=== PATIENT | male | born 1955 | race Caucasian/White ===

== ENCOUNTER 2019-05-24 08:21 | Emergency (ER) | payer MEDICAID, SELFPAY | END 2019-05-24 15:51 | disposition admitted as inpatient to this hospital (09) | LOC: ER 06-24 10:56 | PROVIDERS: Emergency Provider Family Medicine; Family Provider Nurse Practitioner Family | DX: R07.9 Chest pain, unspecified (principal); Z79.82 Long term (current) use of aspirin; Z79.01 Long term (current) use of anticoagulants; F17.210 Nicotine dependence, cigarettes, uncomplicated | CPT/HCPCS: 71045; 71275; 74174; 80053; 83880; 84484; 85025; 93005; 96365; 96366; 96367; 96375; 99284; 99291; Q9967 ==

== ENCOUNTER 2019-05-24 08:21 | Inpatient (IN) | payer MEDICAID, SELFPAY ==
[2019-05-24] VITALS (78 sets, daily range): BP systolic 80–170; BP diastolic 54–139; PULSE 84–99; RESP 17–49; TEMP 36.8–36.9; O2SAT 75–99; BMI 31.0
--- NOTE | 2019-05-24 08:35 | ED_ITS ---
Entered by Kaylin Parson, acting as scribe for Celestino Zurita DO HPI - Chest Pain General: Chief Complaint: Chest Pain Stated Complaint: Chest pain Time Seen by Provider: 05/24/19 08:31 Source: patient and family Mode of arrival: ambulatory Limitations: no limitations History of Present Illness: HPI narrative: 63 yo male presents with chest pain. pt states he woke up this morning around 7:30. pt has a pacer and defibrillator. pt states the pain comes and goes. pt denies any other symptoms at this time. pt has a hx of a AAA that is a [address] Joseph[address] MURRAY complaint: chest pain and chest heaviness Onset (ago): hour(s) (7:30 this morning) Timing of current episode: constant and still present Prior episodes: Yes Onset: during rest Pain location: substernal Pain radiation: none Severity: moderate Quality: tightness and heaviness Relieving factors: nothing Exacerbating factors: nothing Associated symptoms: Reports no associated symptoms Treatment prior to arrival: none Review of Systems General: Reports: 10 or more systems reviewed and unremarkable except in HPI and below PFSH ED PFSH: Statuses (acute, chronic, etc) shown below reflect problem list status as previously entered and may not be historically accurate Social History Smoking and tobacco status: current every day smoker Physical Exam Const: COMMON NORMALS: no apparent distress, average body habitus, oriented x3, no limitations, healthy appearing, alert and well nourished HENMT: COMMON NORMALS: normocephalic, head/scalp atraumatic, hearing grossly normal bilaterally, external ears normal, EAC's normal, TM's normal bilaterally, external nose normal, nasal mucous membranes and turbinates normal, moist oral mucous membranes, oropharynx normal, dentition normal and gingiva normal HEAD & SCALP: normocephalic and atraumatic NOSE: external nose normal and nasal mucous membranes and turbinates normal EXTERNAL EAR: Yes external ears normal EXTERNAL AUDITORY CANAL: EAC's normal TYMPANIC MEMBRANE: TM's normal bilaterally Eye: COMMON NORMALS: PERRL, EOMs intact bilaterally, conjunctivae normal, no scleral icterus, no papilledema, normal visual lubin by confrontation and fundi normal bilaterally CONJUNCTIVA: Yes conjunctivae normal PUPIL: Yes PERRL DIRECT OPHTHALMOSCOPY: Yes no papilledema and Yes fundi normal bilaterally Neck/C-Spine: COMMON NORMALS: full ROM, no lymphadenopathy, supple, no meningeal signs, no JVD, thyroid normal and no carotid bruits THYROID: thyroid normal Resp: COMMON NORMALS: normal respiratory effort, no retractions, no use of accessory muscles, clear to auscultation bilaterally and percussion normal AUSCULTATION: clear to auscultation bilaterally, rales and rhonchi PERCUSSION: percussion normal Cardio: COMMON NORMALS: no JVD, regular rate, regular rhythm, S1 normal heart sound, S2 normal heart sound, no gallops, no clicks, no murmurs, no rub and peripheral pulses 2+ throughout RATE: regular rate RHYTHM: regular rhythm HEART SOUNDS: S1 normal and S2 normal PERIPHERAL PULSES: pulses 2+ throughout GI: COMMON NORMALS: normal to inspection, nondistended, normoactive bowel sounds, soft to palpation, non-tender, no hepatosplenomegaly, no masses and no bruits PALPATION: Yes soft and Yes no hepatosplenomegaly : COMMON NORMALS: Yes no CVA tenderness BLADDER/KIDNEY EXAM: Yes no CVA tenderness Back/Pelvis: COMMON NORMALS: no CVA tenderness, thoracic and lumbar spine normal to inspection, no thoracic nor lumbar tenderness, thoraco-lumbar ROM normal and straight leg raise negative bilaterally Extremity: COMMON NORMALS: normal to inspection, full ROM, normal capillary refill, no joint enlargement, no clubbing, cyanosis or edema, no calf tenderness and no pedal edema Neuro: COMMON NORMALS: oriented x3 SENSORIUM/ORIENTATION: Yes alert MENINGEAL SIGNS: Yes no meningeal signs Skin: COMMON NORMALS: no rashes or lesions noted, no wounds, skin turgor normal, no jaundice, no petechiae and no mottling GENERAL SKIN EXAM: no rashes or lesions noted and turgor normal Course Vital Signs: Vital signs: Vital Signs Pulse Rate 96 05/24/19 11:15 Respiratory Rate 24 H 05/24/19 10:35 Blood Pressure 90/60 05/24/19 10:30 Pulse Oximetry 92 05/24/19 11:15 MDM - Chest Pain Lab Data: Labs: Lab Results 05/24/19 05/24/19 05/24/19 Range/Units 08:50 08:50 08:50 WBC 21.1 H (4.0-10.0) 10^3/ uL RBC 5.29 (4.1-5.3) 10^6/u L Hgb 16.4 (11.7-16.6) g/dL Hct 49.1 (42.0-52.0) % MCV 92.8 (80-94) fL MCH 31.0 (28.0-34.0) pg MCHC 33.4 (30.0-36.0) g/dL RDW 12.6 (12.1-15.1) % Plt Count 295 (130-400) 10^3/c mm MPV 11.5 H (7.4-10.4) fL Neut % (Auto) 78.9 % Lymph % (Auto) 8.1 % [place] % (Auto) 11.6 % Eos % (Auto) 0.2 % Baso % (Auto) 0.5 % Neut # (Auto) 16.6 H (1.8-7.7) 10^3/u L Lymph # (Auto) 1.7 (0.8-4.8) 10^3/u L [place] # (Auto) 2.5 H (0.2-0.9) 10^3/u L Eos # (Auto) 0.0 (0.0-0.8) 10^3/u L Baso # (Auto) 0.1 (0.0-0.1) 10^3/u L Nucleated RBC % (a uto) 0 % Nucleated RBCs # 0.0 /100WBC Sodium 132 L (136-145) mmol/L Potassium 5.2 H (3.5-5.1) mmol/L Chloride 98 (98-107) mmol/L Carbon Dioxide 21 L (22-29) mmol/L Anion Gap 18.2 (5-19) BUN 19 (8-23) mg/dL Creatinine 1.0 (0.7-1.2) mg/dL GFR Calculation 75.7 L (90-130) mL/min Glucose 125 H (74-106) mg/dL Lactate (0.5-2.2) mmol/L Calcium 10.5 H (8.8-10.2) mg/Dl Total Bilirubin 1.0 (0.15-1.2) mg/dL AST 40 (0-40) U/L ALT 56 H (0-41) U/L Alkaline Phosphata se 336 H (40-130) IU/L Troponin T Baselin e 13 (0-15) ng/mL Troponin T 120 Min [place] (0-15) ng/mL Delta Troponin T (0-10) ABS# NT-Pro-B Natriuret Pep 923 H (0-125) pg/mL Total Protein 7.8 (6.6-8.7) g/dL Albumin 4.3 (3.5-5.2) g/dL Globulin 3.5 (1.3-4.6) g/dL 05/24/19 05/24/19 Range/Units 10:38 10:51 WBC (4.0-10.0) 10^3/ uL RBC (4.1-5.3) 10^6/u L Hgb (11.7-16.6) g/dL Hct (42.0-52.0) % MCV (80-94) fL MCH (28.0-34.0) pg MCHC (30.0-36.0) g/dL RDW (12.1-15.1) % Plt Count (130-400) 10^3/c mm MPV (7.4-10.4) fL Neut % (Auto) % Lymph % (Auto) % [place] % (Auto) % Eos % (Auto) % Baso % (Auto) % Neut # (Auto) (1.8-7.7) 10^3/u L Lymph # (Auto) (0.8-4.8) 10^3/u L [place] # (Auto) (0.2-0.9) 10^3/u L Eos # (Auto) (0.0-0.8) 10^3/u L Baso # (Auto) (0.0-0.1) 10^3/u L Nucleated RBC % (a uto) % Nucleated RBCs # /100WBC Sodium (136-145) mmol/L Potassium (3.5-5.1) mmol/L Chloride (98-107) mmol/L Carbon Dioxide (22-29) mmol/L Anion Gap (5-19) BUN (8-23) mg/dL Creatinine (0.7-1.2) mg/dL GFR Calculation (90-130) mL/min Glucose (74-106) mg/dL Lactate 1.6 (0.5-2.2) mmol/L Calcium (8.8-10.2) mg/Dl Total Bilirubin (0.15-1.2) mg/dL AST (0-40) U/L ALT (0-41) U/L Alkaline Phosphata se (40-130) IU/L Troponin T Baselin e (0-15) ng/mL Troponin T 120 Min n[place] 11.59 (0-15) ng/mL Delta Troponin T -1.41 L (0-10) ABS# NT-Pro-B Natriuret Pep (0-125) pg/mL Total Protein (6.6-8.7) g/dL Albumin (3.5-5.2) g/dL Globulin (1.3-4.6) g/dL Discharge Plan Discharge Prescriptions: No Action sotalol 80 mg tablet 80 mg PO BID RF: 0 allopurinol 100 mg tablet 100 mg PO DAILY RF: 0 tamsulosin 0.4 mg capsule 0.4 mg PO DAILY RF: 0 ferrous sulfate 325 mg (65 mg iron) tablet 325 mg PO DAILY RF: 0 aspirin 81 mg tablet,chewable 81 mg PO DAILY RF: 0 lisinopril 5 mg tablet 5 mg PO BID RF: 0 zolpidem 5 mg tablet 5 mg PO BEDTIME RF: 0 finasteride 5 mg tablet 5 mg PO DAILY RF: 0 spironolactone 50 mg tablet 50 mg PO DAILY RF: 0 ezetimibe 10 mg tablet 10 mg PO BEDTIME RF: 0 rosuvastatin 40 mg tablet 40 mg PO DAILY RF: 0 Spiriva with HandiHaler 18 mcg capsule, w/inhalation device 1 cap INHALATION DAILY RF: 0 Eliquis 5 mg tablet 5 mg PO BID RF: 0 Coding Level of Care Code ED Medical Records Field Technician for Chg Fwd Exam Problem Focused The documentation recorded by the Eb rangel Bridget Annette, accurately reflects the service I personally performed and the decisions made by , Celestino Zurita, May 24, 2019 08:21
--- NOTE | 2019-05-24 08:45 | ECG_ITS ---
Measurements Intervals [place] Rate: 97 P: 47 CO: 218 QRS: -51 QRSD: 100 T: -3 QT: 377 QTc: 481 SINUS RHYTHM WITH FIRST DEGREE AV BLOCK LEFT ANTERIOR FASCICULAR BLOCK [QRS AXIS <= -45, QR IN I, RS IN II] POSSIBLE ANTERIOR MYOCARDIAL INFARCTION, OF INDETERMINATE AGE INFERIOR MYOCARDIAL INFARCTION,PROBABLY OLD Compared to ECG 02/03/2019 12:46:48 First degree AV block now present Left anterior fascicular block now present Myocardial infarct finding still present Electronically Signed On 05-24-2019 13:28:19 [employer]IEF [employer]OMETRY SERVICE by Rossy Navarro M.D. [id number] flores
--- NOTE | 2019-05-24 08:45 | XR_ITS ---
WS: [id number] PORTABLE CHEST HISTORY: chest pain / dyspnea COMPARISON: 12/20/2018 LEFT subclavian pacer/defibrillator remains unchanged. Diffuse coarsened interstitial thickening throughout both lungs, similar to the prior study. No pneum onia. No pleural effusion or pneumothorax. Cardiac size: Mildly enlarged cardiac silhouette. Mediastinum/Aorta: Partially calcified aorta. No osseous abnormality seen. XR/XR chest 1V portable [id number] IMPRESSION: 1. Diffuse chronic pulmonary fibrotic changes. Superimposed pneumonitis or juan david ma would be difficult to visualize with this amount of chronic lung disease. No suspicion or increasing opacification. 2. Cardiomegaly.
--- NOTE | 2019-05-24 08:55 | CT_ITS ---
WS: [id number] CT scan of the chest With and without IV contrast, CT scan of the abdomen and pelvis with IV contra st . Additional two-dimensional coronal and sagittal reconstruction was performed. 05/24/2019 Clinical Data: AAA Comparison: CT chest, 02/21/2019, CTA abdomen and pelvis, 04/28/2018. DLP: 1800.[address] scans at [facility] use at least one of these dose optimization techniques: automat ed exposure control; mA and/or kV adjustment per patient size (includes targeted exams where dose is matched to clinical indication); or iterative reconstruction. Findings: Chest: The central and peripheral pulmonary arteries show no intraluminal filling defects. No nodules, masses or effusions are seen. The lungs show interstitial thickening and numerous blebs t hroughout consistent with chronic lung disease. The cardiac pacemaker remains in the same position. The heart size is normal with a small pericardial effusion. The pulmonary arterial system and thoracic aorta demonstrate no abnormalities or dilatations. There is moderate anterior mediastinal adenopathy unchanged. Right hilar lymph nodes are calcified. T here is moderate precarinal lymphadenopathy. The bones of the thorax showing moderate osteoarthritic change of the thoracic vertebral bodies. Abdomen/pelvis: The spleen, adrenal glands and pancreas are normal. There is minimal surface irregularity of the live r with enlargement which can be seen with cirrhosis. There is a calcification in the gallbladder cons istent with cholelithiasis. The kidneys show equal bilateral contrast excretion with a left renal cortical cyst but no hydronephr osis, masses or renal calculi.. The distal abdominal aorta demonstrates an abdominal aortic aneurysm measuring 4.53 x 4.58 x 6.48 cm in transverse, anterior posterior and superior inferior dimension respectively. No appendicitis or diverticulitis is seen. No abscess, adenopathy, ascites, mass, obstruction or free air is seen. The bladder is unremarkable. The prostate is enlarged with calcification. No inguinal h ernia is seen. The bones of the lower thorax, lumbar spine, pelvis, and hips are normal. CT/CT angio chest abdomen pelvis Impression: 1. Negative for pulmonary embolic disease. 2. Chronic lung disease with interstitial thickening and numerous blebs. 3. Moderate pericardial effusion. 4. No change in abdominal aortic aneurysm. 5. Minimal liver irregularity which can indicate cirrhosis . 6. Cholelithiasis.
[2019-05-24 09:03] LABS: Basophils # 0.1 10^3/uL (0.0-0.1); Basophils % 0.5 %; Eosinophils % 0.2 %; Hematocrit 49.1 % (42.0-52.0); Hemoglobin 16.4 g/dL (11.7-16.6); Lymphocytes # 1.7 10^3/uL (0.8-4.8); Lymphocytes % 8.1 %; Mean Corpuscular HGB Conc 33.4 g/dL (30.0-36.0); Mean Corpuscular Volume 92.8 fL (80-94); Mean Platelet Volume 11.5 fL (7.4-10.4); Monocytes # 2.5 10^3/uL (0.2-0.9); Monocytes % 11.6 %; Neutrophils # 16.6 10^3/uL (1.8-7.7); Neutrophils % 78.9 %; Nucleated Red Blood Cells % 0 %; Platelet Count 295 10^3/cmm (130-400); Red Blood Count 5.29 10^6/uL (4.1-5.3); Red Cell Distribution Width 12.6 % (12.1-15.1); White Blood Count 21.1 10^3/uL (4.0-10.0)
[2019-05-24 09:31] LABS: Alanine Aminotransferase 56 U/L (0-41); Albumin Level 4.3 g/dL (3.5-5.2); Alkaline Phosphatase 336 IU/L (40-130); Anion Gap 18.2 (5-19); Aspartate Amino Transferase 40 U/L (0-40); Blood Urea Nitrogen 19 mg/dL (8-23); Calcium 10.5 mg/Dl (8.8-10.2); Carbon Dioxide 21 mmol/L (22-29); Chloride 98 mmol/L (98-107); Globulin 3.5 g/dL (1.3-4.6); Glomerular Filtration Rate 75.7 mL/min (90-130); Glucose 125 mg/dL (74-106); NT Pro B Type Natriuretic Pept 923 pg/mL (0-125); Potassium 5.2 mmol/L (3.5-5.1); Sodium 132 mmol/L (136-145); Total Protein 7.8 g/dL (6.6-8.7)
[2019-05-24 09:45] LABS: Troponin(5th) Baseline 13 ng/mL (0-15)
[2019-05-24] MEDS: iohexol 350 mg/mL 100 mL Btl IV (09:52)
--- NOTE | 2019-05-24 10:45 | ECG_ITS ---
Measurements Intervals [place] Rate: 89 P: 47 LA: 247 QRS: -50 QRSD: 106 T: -8 QT: 390 QTc: 476 SINUS RHYTHM WITH FIRST DEGREE AV BLOCK LEFT ANTERIOR FASCICULAR BLOCK POSSIBLE ANTERIOR MYOCARDIAL INFARCTION, OF INDETERMINATE AGE INFERIOR MYOCARDIAL INFARCTION, probably old Compared to ECG 02/03/2019 12:46:48 First degree AV block now present Left anterior fascicular block now present Myocardial infarct finding still present Electronically Signed On 05-24-2019 13:35:42 PARALEGAL INSTRUCTOR by Rossy Navarro M.D. [id number] flores
[2019-05-24 10:58] LABS: Lactate (Lactic Acid level) 1.6 mmol/L (0.5-2.2)
[2019-05-24 11:08] LABS: Troponin 5 2HR 11.59 ng/mL (0-15)
[2019-05-24 11:09] LABS: Troponin 5 2HR Delta -1.41 ABS# (0-10)
[2019-05-24] MEDS: cefTRIAXone 1,000 MG in sodium chloride 0.9% (plus) 50 ML 100 MG IV (11:51)
[2019-05-24 12:11] LABS: Influenza A by IFA Negative (Negative); Influenza B by IFA Negative (Negative)
--- NOTE | 2019-05-24 13:11 | USCV_ITS ---
Cheko Weaver Age: 63 Gender: M : 1955 Exam Date: 05/24/2019 13:50 Ordering Phys: Elyse Inman DO Technologist: Ricky Cabello [place]am [place] [facility] [place]: CFH BP: 86 / 64 HR: 86 Rhythm: Sinus Technical Quality: Adequate MEASUREMENTS (Male / Female) Normal Values 2D ECHO LV Diastolic Diameter PLAX 4.7 cm 4.2 - 5.9 / 3.9 - 5.3 cm LV Systolic Diameter PLAX 3.7 cm IVS Diastolic Thickness 1.1 cm 0.6 - 1.0 / 0.6 - 0.9 cm IVS Systolic Thickness 1.3 cm LVPW Diastolic Thickness 1.1 cm 0.6 - 1.0 / 0.6 - 0.9 cm LVPW Systolic Thickness 1.1 cm LVOT Diameter 2.0 cm LV Ejection Fraction 2D Teich 43.6 % LV Ejection Fraction MOD 2C 26.9 % LV Ejection Fraction 2C AL 26.2 % LA Diameter 4.0 cm LA Width 4.1 cm LA Height 5.5 cm RA Width 4.4 cm RA Height 4.7 cm M-MODE LV Diastolic Diameter MM 5.3 cm 4.2 - 5.9 / 3.9 - 5.3 cm LV Systolic Diameter MM 3.4 cm LV Ejection Fraction MM Teich 63.6 % IVS Diastolic Thickness MM 1.3 cm 0.6 - 1.0 / 0.6 - 0.9 cm IVS Systolic Thickness MM 2.0 cm LVPW Diastolic Thickness MM 1.2 cm 0.6 - 1.0 / 0.6 - 0.9 cm LVPW Systolic Thickness MM 1.8 cm RV Diastolic Diameter MM 2.7 cm Aortic Annulus Diameter 3.6 cm LA Ao Ratio MM 1.1 MV E Point Septal Separation 1.4 cm DOPPLER AV Peak Velocity 94.0 cm/s LVOT Peak Velocity 64.0 cm/s AV Area Cont Eq vti 1.9 cm squared AV Area Cont Eq pk 2.1 cm squared MV Area PHT 5.0 cm squared Mitral E to A Ratio 0.7 MV E' Velocity 5.0 cm/s Mitral E to MV E' Ratio 8.9 Mitral E to LV E' Lateral Ratio 7.7 Mitral E to LV E' Septal Ratio 10.6 TR Peak Velocity 136.0 cm/s TR Peak Gradient 7.4 mmHg TV Peak E Velocity 72.0 cm/s Right Atrial Pressure 3.0 mmHg Pulmonary Artery Systolic Pressu 10.4 mmHg PV Peak Velocity 60.0 cm/s FINDINGS Left Ventricle Moderately increased left ventricular cavity size. Moderately decreased left ventricular systolic function. Global left ventricular hypokinesis. Left ventricular ejection fraction is estimated at 40 %. Grade I/IV diastolic dysfunction (abnormal relaxation filling pattern), normal to mildly elevated filling pressures. Right Ventricle Normal right ventricular size. Catheter/pacemaker wire visualized in the right ventricle. Right Atrium The right atrium is normal in size. Catheter/pacemaker wire in the right atrial cavity. Left Atrium Mildly increased left atrial size. Mitral Valve Moderately thickened mitral valve. Mild mitral annular calcification. No mitral valve stenosis. Trace mitral valve regurgitation. Aortic Valve Structurally normal aortic valve without significant sclerosis or stenosis. There is no aortic regurgitation. Tricuspid Valve Structurally normal tricuspid valve without significant stenosis or regurgitation. Pulmonary artery systolic pressure is normal. Pulmonic Valve Structurally normal pulmonic valve without significant stenosis. There is no pulmonic regurgitation. Pericardium Normal pericardium without effusion. Aorta Normal ascending aorta dimension. CONCLUSIONS 1-Normal right ventricular size. Catheter/pacemaker wire visualized in the right ventricle. 2-Moderately increased left ventricular cavity size. Moderately decreased left ventricular systolic function. Global left ventricular hypokinesis. Left ventricular ejection fraction is estimated at 40 %. Grade I/IV diastolic dysfunction (abnormal relaxation filling pattern), normal to mildly elevated filling pressures. 3-Mildly increased left atrial size. 4-Moderately thickened mitral valve. Mild mitral annular calcification. No mitral valve stenosis. Trace mitral valve regurgitation. 5-There is no pericardial effusion. 6-Pulmonary artery systolic pressure is within normal limits. 7-When compared to the prior echocardiogram dated 10/07/2018 left ventricular ejection fraction has improved from severely depressed 25% to moderately depressed 40%. Ronald Cole MD (Electronically Signed) Final Date: 24 May 2019 19:02 S
--- NOTE | 2019-05-24 14:05 | PM.HP ---
Providers/Chief Complaint Admitting Physician: Dr Inman, hospitalist Primary Care Provider: DOCTOR NOT ON FILE Chief Complaint: Chest pain History of Present Illness Cheko Weaver is a 63 year old male with a past medical history of nonischemic cardiomyopathy, hypertension, atrial fibrillation and abdominal aortic aneurysm that presented to the emergency department for sudden onset of chest pain. He stated that he woke up at 4:00 this morning with sudden pain in the center of his chest and associated shortness of breath. He stated that he is not sure if his defibrillator fired but due to continued shortness of breath and chest pain he came into the ER for further evaluation and treatment. He stated that he is followed by cardiology, Dr. Navarro and also by Dr. Garcia due to abdominal aortic aneurysm. He denies any recent fever, no increase in cough or sputum production, does not report any fevers. He does report increased chest pain whenever he lies flat. Patient denies being on oxygen at home. He denies any recent medication changes Patient was seen and evaluated in the emergency department noted to have concern for pneumonia with elevation in white blood cell count and chest pain and admitted for further evaluation and treatment. Review of Systems Const: Denies: fever or chills Eyes: Denies: change in vision ENMT: Denies: nasal congestion Card: Reports: chest pain; Denies: palpitations or edema Resp: Reports: shortness of breath; Denies: productive cough or coughing up blood GI: Denies: abdominal pain, nausea, vomiting, diarrhea, constipation, blood in stool or black tarry stool : Denies: painful urination or blood in urine Musc: Denies: extremity pain or muscle cramps Skin/Breast: Denies: rash or new lesion Neuro: Denies: headache or dizziness Psych: Denies: anxiety or depression Endo: Denies: excessive urination or hot flashes Cuco/Lymph: Denies: easy bruising or easy bleeding Medications/Allergies Home Medications Medication Instructions Recorded Confirmed Last Taken Type allopurinol 100 mg PO DAILY 05/24/19 05/24/19 05/24/19 History apixaban [Eliquis] 5 mg PO BID 05/24/19 05/24/19 05/24/19 History aspirin 81 mg PO DAILY 05/24/19 05/24/19 05/24/19 History ezetimibe 10 mg PO BEDTIME 05/24/19 05/24/19 05/23/19 History ferrous sulfate 325 mg PO DAILY 05/24/19 05/24/19 05/23/19 History finasteride 5 mg PO DAILY 05/24/19 05/24/19 05/23/19 History lisinopril 5 mg PO BID 05/24/19 05/24/19 05/24/19 History rosuvastatin 40 mg PO DAILY 05/24/19 05/24/19 05/23/19 History sotalol 80 mg PO BID 05/24/19 05/24/19 05/24/19 History spironolactone 50 mg PO DAILY 05/24/19 05/24/19 05/24/19 History tamsulosin 0.4 mg PO DAILY 05/24/19 05/24/19 05/24/19 History tiotropium bromide [Spiriva with 1 cap INHALATION DAILY 05/24/19 05/24/19 05/24/19 History HandiHaler] zolpidem 5 mg PO BEDTIME 05/24/19 05/24/19 05/23/19 History Allergies Allergy/AdvReac Type Severity Reaction Status Date / Time No Known Allergies Allergy Verified 05/24/19 08:31 PFSH Acute PFSH: Statuses (acute, chronic, etc) shown below reflect problem list status as previously entered and may not be historically accurate Medical History (Updated 05/24/19 @ 14:27 by Elyse Inman DO) Abdominal aortic aneurysm (Acute) Atrial fibrillation (Acute) Cirrhosis (Acute) COPD (chronic obstructive pulmonary disease) (Acute) Hyperlipidemia (Acute) Hypertension (Acute) Nonischemic cardiomyopathy (Acute) Thrombocytopenia (Acute) Surgical History (Updated 05/24/19 @ 14:20 by Elyse Inman DO) H/O hernia repair (Acute) L inguinal hernia repair History of implantable cardioverter-defibrillator (ICD) placement (Acute) 12/20/18 History of orthopedic surgery (Acute) Repair heel fracture Family History (Updated 05/24/19 @ 14:20 by Elyse Inman DO) Mother Dementia Father CAD (coronary artery disease) Social History (Updated 05/24/19 @ 14:21 by Elyse Inman DO) Smoking and tobacco status: current every day smoker Alcohol intake: never Substance/Drug Use: former Vitals/I&O/Wt Last Vital Signs Pulse 96 05/24/19 11:15 Resp 24 H 05/24/19 10:35 BP 90/60 05/24/19 10:30 Pulse Ox 92 05/24/19 11:15 Weight last 48 hrs Weight 89.811 kg Physical Exam Const: COMMON NORMALS: oriented x3 and alert GENERAL APPEARANCE: cooperative ORIENTATION/CONSCIOUSNESS: Yes awake, Yes oriented to person, Yes oriented to place and Yes oriented to time HENMT: COMMON NORMALS: normocephalic and head/scalp atraumatic HEAD & SCALP: normocephalic and atraumatic Eye: COMMON NORMALS: PERRL PUPIL: Yes PERRL Neck/C-Spine: COMMON NORMALS: supple GENERAL: Yes normal visual inspection Resp: EFFORT & INSPECTION: Yes able to speak in complete sentences AUSCULTATION: clear to auscultation bilaterally, no rhonchi and no wheezes Cardio: COMMON NORMALS: regular rate, regular rhythm and no murmurs RATE: regular rate RHYTHM: regular rhythm GI: COMMON NORMALS: soft to palpation and non-tender INSPECTION: No abdominal distension AUSCULTATION: Yes normoactive bowel sounds PALPATION: Yes soft : COMMON NORMALS: Yes no CVA tenderness BLADDER/KIDNEY EXAM: Yes no CVA tenderness Back/Pelvis: COMMON NORMALS: no CVA tenderness Extremity: COMMON NORMALS: no clubbing, cyanosis or edema and no calf tenderness Neuro: COMMON NORMALS: oriented x3, CN's II-XII intact bilaterally, moves all extremities and no focal motor deficits SENSORIUM/ORIENTATION: Yes alert, Yes oriented to person, Yes oriented to place and Yes oriented to time SPEECH: speech normal Psych: COMMON NORMALS: mental status grossly normal and cooperative Skin: COMMON NORMALS: no rashes or lesions noted GENERAL SKIN EXAM: no rashes or lesions noted Data : 05/24/19 08:50 05/24/19 08:50 CTA Chest: Radiologist's impression: CTA Chest/Abdomen/Pelvis Findings: Chest: The central and peripheral pulmonary arteries show no intraluminal filling defects. No nodules, masses or effusions are seen. The lungs show interstitial thickening and numerous blebs throughout consistent with chronic lung disease. The cardiac pacemaker remains in the same position. The heart size is normal with a small pericardial effusion. The pulmonary arterial system and thoracic aorta demonstrate no abnormalities or dilatations. There is moderate anterior mediastinal adenopathy unchanged. Right hilar lymph nodes are calcified. There is moderate precarinal lymphadenopathy. The bones of the thorax showing moderate osteoarthritic change of the thoracic vertebral bodies. Abdomen/pelvis: The spleen, adrenal glands and pancreas are normal. There is minimal surface irregularity of the liver with enlargement which can be seen with cirrhosis. There is a calcification in the gallbladder consistent with cholelithiasis. The kidneys show equal bilateral contrast excretion with a left renal cortical cyst but no hydronephrosis, masses or renal calculi.. The distal abdominal aorta demonstrates an abdominal aortic aneurysm measuring 4.53 x 4.58 x 6.48 cm in transverse, anterior posterior and superior inferior dimension respectively. No appendicitis or diverticulitis is seen. No abscess, adenopathy, ascites, mass, obstruction or free air is seen. The bladder is unremarkable. The prostate is enlarged with calcification. No inguinal hernia is seen. The bones of the lower thorax, lumbar spine, pelvis, and hips are normal. A&P Assessment and plan (1) Chest pain: Believed to be multifactorial CXR and WBC elevation believed to be due to pneumonia Started on Rocephin and Azithromycin Oxygen per protocol, RTAT Status: Acute Code(s): R07.9 - Chest pain, unspecified (2) Pneumonia: Continue IV antibiotics as above, patient denies any change in cough but do due to WBC count of 21k and CXR findings will further treat with antibiotics RTAT Oxygen per protocol Status: Acute Code(s): J18.9 - Pneumonia, unspecified organism (3) COPD (chronic obstructive pulmonary disease): RTAT, and oxygen per protocol Continue with IV antibiotics at this time but consider steroids if needed, no wheezing at this time so will hold off Status: Acute Code(s): J44.9 - Chronic obstructive pulmonary disease, unspecified (4) Abdominal aortic aneurysm: Unchanged by imaging Followed by Dr. Garcia Status: Acute Code(s): I71.4 - Abdominal aortic aneurysm, without rupture (5) Atrial fibrillation: Continue home Eliquis 5mg po BID sotalol 80mg BID Status: Acute Code(s): I48.91 - Unspecified atrial fibrillation (6) Hypertension: Now hypotensive, will hold aldactone at this time and hold lisinopril Status: Acute Code(s): I10 - Essential (primary) hypertension (7) Nonischemic cardiomyopathy: LVEF of 25% Followed by Dr. Navarro Patient does have mild fluid overload on exam but also hypotensive, will give IV lasix x1 and monitor BP closely in the ICU Status: Acute Code(s): I42.8 - Other cardiomyopathies (8) Pericardial effusion: ON CTA of chest, Urgent ECHO ordered for further evaluation Status: Acute Code(s): I31.3 - Pericardial effusion (noninflammatory) Attestations Medical Necessity Statement*: Patient requires hospitalization due to chest pain with concern for pneumonia and hypotension but also concern for mild fluid overload and pericardial effusion. Expected stay greater than 2 midnights Coding Level of Care Code Acute Route Supervisor for Chg Fwd Exam Problem Focused Diagnoses Chest pain R07.9 Pneumonia J18.9 COPD (chronic obstructive pulmonary disease) J44.9 Abdominal aortic aneurysm I71.4 Atrial fibrillation I48.91 Hypertension I10 Nonischemic cardiomyopathy I42.8 Pericardial effusion I31.3
--- NOTE | 2019-05-24 14:45 | ECG_ITS ---
Measurements Intervals [place] Rate: 96 P: 36 AR: 232 QRS: -49 QRSD: 94 T: -17 QT: 360 QTc: 456 SINUS RHYTHM WITH FIRST DEGREE AV BLOCK ANTERIOR MYOCARDIAL INFARCTION , probably old INFERIOR MYOCARDIAL INFARCTION , probably old Compared to ECG 02/03/2019 12:46:48 First degree AV block now present Myocardial infarct finding still present Electronically Signed On 05-24-2019 13:32:50 WHITEWATER RAFTING GUIDE by Rossy Navarro M.D. [id number]
[2019-05-24] MEDS: azithromycin 500 MG in sodium chloride 0.9% 250 ML 250 MG IV (15:22)
[2019-05-24 15:47] LABS: Lactic Acid 1.3 mmol/L (0.5-2.2)
--- NOTE | 2019-05-24 16:23 | ECG_ITS ---
Measurements Intervals [place] Rate: 87 P: 44 [place]: 212 QRS: -52 QRSD: 94 T: -10 QT: 362 QTc: 437 SINUS RHYTHM WITH FIRST DEGREE AV BLOCK LOW QRS VOLTAGE IN PRECORDIAL LEADS [QRS DEFLECTION < 1.0 mV IN CHEST LEADS] POSSIBLE ANTERIOR MYOCARDIAL INFARCTION , OF INDETERMINATE AGE INFERIOR MYOCARDIAL INFARCTION , OF INDETERMINATE AGE Compared to ECG 05/24/2019 11:03:41 Low QRS voltage now present Myocardial infarct finding still present Electronically Signed On 05-24-2019 17:51:53 FORECLOSURE PARALEGAL by Rossy Navarro M.D. [id number]
[2019-05-24] MEDS: morphine 4 mg/mL SDV 1 mL 2 MG IVP ×2 (16:29→20:41)
--- NOTE | 2019-05-24 16:31 | PC.NURSE ---
Patient into ICU from ER. A&O. Cooperative and pleasant. Slightly hyotensive. Dr. Patel into unit to assess patient. Applying cheetah monitor to assess fluid status and will report results to physician.
--- NOTE | 2019-05-24 18:01 | PC.NURSE ---
Pacemaker check complete. Cheetah placed on patient and cheetah indicates patient is fluid responsive. Call placed to Dr. Patel to notify.
--- NOTE | 2019-05-24 18:06 | PC.NURSE ---
Instructions from Dr. Patel to start fluids at 50mL/hour.
--- NOTE | 2019-05-24 18:07 | PC.NURSE ---
[facility] Cole notified. And is at bedside now to assess patient.
[2019-05-24] MEDS: sodium chloride 0.9% 1,000 ML 50 ML IV (18:20)
--- NOTE | 2019-05-24 18:34 | PM.CONSULT ---
Providers/Reason For Consult Consulting Physican/Specialty*: Cardiovascular medicine Reason for Consult*: Decompensated systolic heart failure, chest pain, hypotension Attending Physician: Elyse Inman MD Primary Care Provider: DOCTOR NOT ON FILE History of Present Illness History of Present Illness Cheko Weaver is a 63 year old male Past medical history significant for nonischemic cardiomyopathy with history of severely depressed left ventricle ejection fraction, Hypertension, cirrhosis, status post ICD presented with shortness of breath, hypotension and history of central to right-sided chest pain when she woke up in the night. ICD was interrogated Which did not show any arrhythmia,i have not seen the report but this is as per nursing staff. Patient was also ruled out for acute coronary syndrome. Negative troponin so far, CT angiogram ruled out pulmonary embolism. When I saw the patient in the ICU he was barely able to talk to me he was not able to lay flat as well. His systolic blood pressure is around 90. His heart rate is under control he appeared to be in sinus rhythm now. Review of Systems General: Reports: 10 or more systems reviewed and unremarkable except in HPI and below Const: Denies: fever or chills Eyes: Denies: change in vision ENMT: Denies: nasal congestion Card: Reports: chest pain; Denies: palpitations or edema Resp: Reports: shortness of breath; Denies: productive cough or coughing up blood GI: Denies: abdominal pain, nausea, vomiting, diarrhea, constipation, blood in stool or black tarry stool : Denies: painful urination or blood in urine Musc: Denies: extremity pain or muscle cramps Skin/Breast: Denies: rash or new lesion Neuro: Denies: headache or dizziness Psych: Denies: anxiety or depression Endo: Denies: excessive urination or hot flashes Cuco/Lymph: Denies: easy bruising or easy bleeding Meds/Allergies Home Medications and Allergies Home Medications Medication Instructions Recorded Confirmed Type allopurinol 100 mg PO DAILY 05/24/19 05/24/19 History apixaban [Eliquis] 5 mg PO BID 05/24/19 05/24/19 History aspirin 81 mg PO DAILY 05/24/19 05/24/19 History ezetimibe 10 mg PO BEDTIME 05/24/19 05/24/19 History ferrous sulfate 325 mg PO DAILY 05/24/19 05/24/19 History finasteride 5 mg PO DAILY 05/24/19 05/24/19 History lisinopril 5 mg PO BID 05/24/19 05/24/19 History rosuvastatin 40 mg PO DAILY 05/24/19 05/24/19 History sotalol 80 mg PO BID 05/24/19 05/24/19 History spironolactone 50 mg PO DAILY 05/24/19 05/24/19 History tamsulosin 0.4 mg PO DAILY 05/24/19 05/24/19 History tiotropium bromide [Spiriva with 1 cap INHALATION DAILY 05/24/19 05/24/19 History HandiHaler] zolpidem 5 mg PO BEDTIME 05/24/19 05/24/19 History Allergies Allergy/AdvReac Type Severity Reaction Status Date / Time No Known Allergies Allergy Verified 05/24/19 08:31 Current Medications Current Medications Generic Name Dose Route Start Last Admin Trade Name Freq PRN Reason Stop Dose Admin Azithromycin 500 mg/ Sodium 250 mls @ 250 mls/hr 05/24/19 13:45 05/24/19 15:22 Chloride IV 250 mls/hr Q24H JAMILA Administration Protocol Morphine Sulfate 2 mg 05/24/19 13:39 05/24/19 16:29 Morphine IVP 2 mg Q4H PRN Administration SEVERE PAIN PFSH Acute PFSH: Statuses (acute, chronic, etc) shown below reflect problem list status as previously entered and may not be historically accurate Medical History (Updated 05/24/19 @ 19:44 by Ronald Cole MD) Abdominal aortic aneurysm (Acute) Atrial fibrillation (Acute) Cirrhosis (Acute) COPD (chronic obstructive pulmonary disease) (Acute) Hyperlipidemia (Acute) Hypertension (Acute) Hypotension (Acute) Nonischemic cardiomyopathy (Acute) Thrombocytopenia (Acute) Surgical History H/O hernia repair (Acute) L inguinal hernia repair History of implantable cardioverter-defibrillator (ICD) placement (Acute) 12/20/18 History of orthopedic surgery (Acute) Repair heel fracture Family History Mother Dementia Father CAD (coronary artery disease) Social History Smoking and tobacco status: current every day smoker Alcohol intake: never Substance/Drug Use: former Vitals/I&O/Wt Last Vital Signs Pulse 88 05/24/19 15:27 Resp 32 H 05/24/19 16:29 BP 94/65 05/24/19 15:27 Pulse Ox 94 05/24/19 16:29 05/24/19 05/24/19 05/24/19 06:59 14:59 22:59 Intake Total 200 / 200 Balance 200 / 200 Weight last 48 hrs Weight 198 lb Physical Exam Narrative: EXAM NARRATIVE: GENERAL: Patient is alert, awake and oriented x3. But lethargic and short of breath NECK: No jugular vein distension. HEENT: No cyanosis. No icterus. No pallor. HEART: Regular S1 and S2. No murmur, rub or gallop. LUNGS: Inspiratory scattered crackles bilaterally. ABDOMEN: Soft, nontender and mildly distended. Positive bowel sounds. No guarding, rebound or tenderness. CENTRAL NERVOUS SYSTEM: Grossly nonfocal. EXTREMITIES: Lower extremities with trace edema bilaterally. Data Micro: Micro: Microbiology 05/24/19 14:00 Blood Culture - Pr eliminary Blood SPECIMEN [facility] 05/24/19 14:17 Blood Culture - Pr eliminary Blood SPECIMEN [facility] A&P Assessment and plan (1) Nonischemic cardiomyopathy: It appeared to me patient is in decompensated systolic heart failure. He has gained 28 pounds more than his usual weight.I will start him on Lasix. We will give him 40 mg of IV now. Status: Acute Code(s): I42.8 - Other cardiomyopathies (2) Atrial fibrillation: Currently he is in sinus rhythm I will hold sotalol due to hypotension and due to negative inotropy. Continue anticoagulation Status: Acute Qualifiers: Atrial fibrillation type: unspecified Qualified Code(s): I48.91 - Unspecified atrial fibrillation Code(s): I48.91 - Unspecified atrial fibrillation (3) Abdominal aortic aneurysm: Continue medical management for now. He follows up with Dr. Garcia as an outpatient Status: Acute Qualifiers: Presence of rupture: without rupture Qualified Code(s): I71.4 - Abdominal aortic aneurysm, without rupture Code(s): I71.4 - Abdominal aortic aneurysm, without rupture (4) Cirrhosis: As per medicine Status: Acute Qualifiers: Hepatic cirrhosis type: other cirrhosis Qualified Code(s): K74.69 - Other cirrhosis of liver Code(s): K74.60 - Unspecified cirrhosis of liver (5) COPD (chronic obstructive pulmonary disease): Appeared to me that patient also has COPD exacerbation. He is being treated with antibiotics as per medicine Status: Acute Qualifiers: COPD type: COPD with acute exacerbation Qualified Code(s): J44.1 - Chronic obstructive pulmonary disease with (acute) exacerbation Code(s): J44.9 - Chronic obstructive pulmonary disease, unspecified (6) Pneumonia: He is on IV antibiotic. Continue aspirin medicine Status: Acute Qualifiers: Pneumonia type: due to unspecified organism Code(s): J18.9 - Pneumonia, unspecified organism (7) Chest pain: Most likely pleuritic in nature secondary to possible pneumoniaAre pericardial/Pleural effusion, Continue pain control. Status: Acute Qualifiers: Chest pain type: chest pain on breathing Qualified Code(s): R07.1 - Chest pain on breathing Code(s): R07.9 - Chest pain, unspecified (8) Pericardial effusion: Mild. Continue to monitor Status: Acute Code(s): I31.3 - Pericardial effusion (noninflammatory) (9) Hypotension: Could be due to sepsis with combination of decompensated heart failure. Continue IV antibiotic, will start patient on levophed. Status: Acute Qualifiers: Hypotension type: idiopathic hypotension Qualified Code(s): I95.0 - Idiopathic hypotension Code(s): I95.9 - Hypotension, unspecified Coding Level of Care Code Acute Records Management Assistant for [facility] Diagnoses Nonischemic cardiomyopathy I42.8 Atrial fibrillation I48.91 Atrial fibrillation type: unspecified Abdominal aortic aneurysm I71.4 Presence of rupture: without rupture Cirrhosis K74.69 Hepatic cirrhosis type: other cirrhosis COPD (chronic obstructive pulmonary disease) J44.1 COPD type: COPD with acute exacerbation Pneumonia J18.9 Pneumonia type: due to unspecified organism Chest pain R07.1 Chest pain type: chest pain on breathing Pericardial effusion I31.3 Hypotension I95.0 Hypotension type: idiopathic hypotension
[2019-05-24] MEDS: apixaban 5 mg Tablet PO (18:35)
[2019-05-24] MEDS: FUROsemide 10 mg/mL SDV 4mL 40 MG IVP (18:41)
--- NOTE | 2019-05-24 19:14 | PC.NURSE ---
Patient did receive dose of sotalol prior to Dr. Cole placing medication on hold. Dr. Cole aware. [facility] charting system error makes it currently unable to acknowledge hold and shows that patient has not received dose of sotalol.
[2019-05-24] MEDS: zolpidem 5 mg Tablet PO (20:41)
--- NOTE | 2019-05-24 21:24 | ECG_ITS ---
Measurements Intervals [place] Rate: 93 P: 55 [place]: 238 QRS: -48 QRSD: 107 T: 8 QT: 382 QTc: 476 SINUS RHYTHM WITH FIRST DEGREE AV BLOCK PATTERN CONSISTENT WITH PULMONARY DISEASE LEFT ANTERIOR FASCICULAR BLOCK [QRS AXIS <= -45, QR IN I, RS IN II] POSSIBLE INFERIOR MYOCARDIAL INFARCTION [30 ms Q WAVE IN II/aVF], OF INDETERMINATE AGE Compared to ECG 05/24/2019 14:51:07 Left anterior fascicular block now present Myocardial infarct finding still present Electronically Signed On 05-25-2019 9:55:20 BAD CREDIT COLLECTOR by Rossy Navarro M.D. [id number]
[2019-05-25] VITALS (14 sets, daily range): BP systolic 85–126; BP diastolic 57–76; PULSE 90–113; RESP 16–25; TEMP 36.6–36.9; O2SAT 90–95; BMI 30.4
[2019-05-25] MEDS: morphine 4 mg/mL SDV 1 mL 2 MG IVP ×4 (00:49→21:09)
[2019-05-25 05:02] LABS: Basophils % 0.4 %; Eosinophils # 0.2 10^3/uL (0.0-0.8); Eosinophils % 0.8 %; Nucleated Red Blood Cells % 0 %
[2019-05-25 05:18] LABS: Anion Gap 16.9 (5-19); Blood Urea Nitrogen 21 mg/dL (8-23); Calcium 9.6 mg/Dl (8.8-10.2); Carbon Dioxide 17 mmol/L (22-29); Chloride 99 mmol/L (98-107); Glomerular Filtration Rate 85.5 mL/min (90-130); Glucose 118 mg/dL (74-106); Potassium 4.9 mmol/L (3.5-5.1); Sodium 128 mmol/L (136-145)
[2019-05-25 05:47] LABS: Basophils # 0.1 10^3/uL (0.0-0.1); Hematocrit 45.5 % (42.0-52.0); Hemoglobin 14.5 g/dL (11.7-16.6); Lymphocytes # 2.2 10^3/uL (0.8-4.8); Lymphocytes % 12.1 %; Mean Corpuscular HGB Conc 31.9 g/dL (30.0-36.0); Mean Corpuscular Hemoglobin 30.8 pg (28.0-34.0); Mean Corpuscular Volume 96.6 fL (80-94); Mean Platelet Volume 11.8 fL (7.4-10.4); Monocytes # 3.3 10^3/uL (0.2-0.9); Monocytes % 17.8 %; Neutrophils # 12.6 10^3/uL (1.8-7.7); Neutrophils % 68.3 %; Platelet Count 240 10^3/cmm (130-400); Red Blood Count 4.71 10^6/uL (4.1-5.3); Red Cell Distribution Width 12.6 % (12.1-15.1); White Blood Count 18.5 10^3/uL (4.0-10.0)
--- NOTE | 2019-05-25 07:24 | PC.NURSE ---
Report received from shift superintendent. Patient resting in bed. A&O. Cooperative and pleasant. Levo running at .
[2019-05-25] MEDS: atorvastatin 40 mg Tablet 80 MG PO (08:03)
[2019-05-25] MEDS: aspirin 81 mg Chew Tablet PO (08:03)
[2019-05-25] MEDS: ferrous sulfate EC 325 mg Tablet PO (08:03)
[2019-05-25] MEDS: apixaban 5 mg Tablet PO ×2 (08:03→19:52)
[2019-05-25] MEDS: finasteride 5 mg Tablet PO (08:03)
--- NOTE | 2019-05-25 08:39 | PC.NURSE ---
[facility] monitor applied to patient to reassess fluid status. Monitor shows that patient is not fluid responsive. Dr. Cole at bedside for this assessment. Instructions from Dr. Cole to increase fluids to 100mL/hr.
--- NOTE | 2019-05-25 08:47 | PC.NURSE ---
Dr. Patel at bedside now to assess patient. Instructions to stop fluids completely at this time.
--- NOTE | 2019-05-25 10:13 | PC.NURSE ---
Patient's family members at bedside visiting.
[2019-05-25] MEDS: azithromycin 500 MG in sodium chloride 0.9% 250 ML 250 MG IV (12:51)
--- NOTE | 2019-05-25 13:35 | PC.CHAP ---
Pastoral Care Encounter/Spiritual Assessment Type of Contact [] Declined electrician shop visit [] Patient/Family/Request visit [] Outpatient visit [] Follow-up visit [] Physician referral [] Code/Alert [X] Routine visit [] Staff referral [] Actively dying [] Patient sleeping [] Family support [] [] Out of room [] Palliative care [] [] Receiving care in room [] Pre-surgical visit [] Trauma [] Long length of stay [X] ICU visit [] Other: Relational/Emotional Strength [X] Patient feels connected with others/family/visitors/staff [] Distress [] Loneliness/isolation [] Abandonment Spirituality of Patient [] Person of Barbara [] Attends Adventist of their [place] [] Believes in Prayer [] Reads Bible or Faith materials [X] There are Spiritual issues to be addressed Ocean Biologist Interventions [] Prayer [X] Active listening [X] Non-anxious presence [] Spiritual/emotional support [] Crisis/trauma care [] Spiritual counseling [] Bereavement support [] Provided bereavement packet [] Provided Bible/devotional materials [] Provided toy/stuffed animal, coloring book to patient or family member [X] Completed spiritual assessment [] Provided Communion [] Anointing/[place] [] Salvation [X] Other: DECLINED PRAYER Impact on Illness or Injury [] Angry [] Fearful [] Anxious [] Often cries [] Exhaustion [] Unable to work [] Unable to attend amish [] Unable to walk/stand [] Unable to read [] Unable to drive [] Unable to eat/drink [] Unable to sleep [] Unable to be with family [] Other: Summary The patient was receptive and declined prayer. Time spent with patient 8 mins.
[2019-05-25 14:17] LABS: Anion Gap 16.7 (5-19); Blood Urea Nitrogen 17 mg/dL (8-23); Calcium 9.3 mg/Dl (8.8-10.2); Chloride 96 mmol/L (98-107); Glucose 156 mg/dL (74-106); Potassium 4.7 mmol/L (3.5-5.1); Sodium 123 mmol/L (136-145)
[2019-05-25] MEDS: cefTRIAXone 1,000 MG in sodium chloride 0.9% (plus) 50 ML 100 MG IV (14:47)
[2019-05-25 14:58] LABS: Carbon Dioxide 15 mmol/L (22-29)
--- NOTE | 2019-05-25 15:16 | P.PN_ITS ---
Subjective Subjective: Interval history: Cheko reports he still has some chest discomfort. Nurses have been able to wean his norepinephrine down and it is now off. Medications: Reviewed: Yes Vitals/I&O/Wt Last Vital Signs Temp 98.4 F 05/25/19 12:00 Pulse 90 05/25/19 12:00 Resp 22 H 05/25/19 14:44 BP 114/72 05/25/19 12:00 Pulse Ox 94 05/25/19 14:44 05/25/19 05/25/19 05/25/19 06:59 14:59 22:59 Intake Total 89.68 / 539.68 944.32 / 944.32 Output Total 400 / 900 800 / 800 Balance -310.32 / -360.32 144.32 / 144.32 Weight last 48 hrs Weight 88.139 kg Weight 89.811 kg Physical Exam Narrative: EXAM NARRATIVE: General exam is no apparent distress Cardiovascular regular rate and rhythm without murmur Lungs clear but with diminished breath sounds bilaterally. Abdomen is soft positive bowel sounds Extremities no cyanosis clubbing. Only trace edema. Data Micro: Micro: Microbiology 05/24/19 14:00 Blood Culture - Pr eliminary Blood NEGATIVE TO SEFERINO E 05/24/19 14:17 Blood Culture - Pr eliminary Blood NEGATIVE TO SEFERINO E A&P Assessment and plan (1) Hyponatremia: Present on admission but worsened with IV fluids. Bicarbonate decreased but this may be secondary to norepinephrine. Renal function still okay. We will give a small dose of Lasix and continue to monitor closely. Repeat BMP at 1900 Status: Acute Code(s): E87.1 - Hypo-osmolality and hyponatremia (2) Respiratory failure: Requiring only 2 L of oxygen currently. Hypoxic. Status: Acute Code(s): J96.90 - Respiratory failure, unspecified, unspecified whether with hypoxia or hypercapnia (3) Chest pain: Believed to be multifactorial CXR and WBC elevation believed to be due to pneumonia Started on Rocephin and Azithromycin Oxygen per protocol, RTAT Overall has improved somewhat Status: Acute Qualifiers: Chest pain type: chest pain on breathing Qualified Code(s): R07.1 - Chest pain on breathing Code(s): R07.9 - Chest pain, unspecified (4) Hypotension: Requiring norepinephrine. This is being tapered down Status: Acute Qualifiers: Hypotension type: idiopathic hypotension Qualified Code(s): I95.0 - Idiopathic hypotension Code(s): I95.9 - Hypotension, unspecified (5) Pneumonia: Rocephin, azithromycin. White blood cell count slightly improved Status: Acute Qualifiers: Pneumonia type: due to unspecified organism Code(s): J18.9 - Pneumonia, unspecified organism (6) COPD (chronic obstructive pulmonary disease): Nebs Status: Acute Qualifiers: COPD type: COPD with acute exacerbation Qualified Code(s): J44.1 - Chronic obstructive pulmonary disease with (acute) exacerbation Code(s): J44.9 - Chronic obstructive pulmonary disease, unspecified (7) Abdominal aortic aneurysm: Unchanged by imaging Followed by Dr. Garcia Status: Acute Qualifiers: Presence of rupture: without rupture Qualified Code(s): I71.4 - Abdominal aortic aneurysm, without rupture Code(s): I71.4 - Abdominal aortic aneurysm, without rupture (8) Atrial fibrillation: Continue home Eliquis 5mg po BID sotalol 80mg BID Heart rate controlled currently Status: Acute Qualifiers: Atrial fibrillation type: unspecified Qualified Code(s): I48.91 - Unspecified atrial fibrillation Code(s): I48.91 - Unspecified atrial fibrillation (9) Hypertension: Now hypotensive, will hold aldactone at this time and hold lisinopril Status: Acute Code(s): I10 - Essential (primary) hypertension (10) Nonischemic cardiomyopathy: LVEF of 25% Followed by Dr. Navarro Patient does have mild fluid overload on exam but also hypotensive, will give IV lasix x1 and monitor BP closely in the ICU Status: Acute Code(s): I42.8 - Other cardiomyopathies (11) Pericardial effusion: Echocardiogram did not show pericardial effusion. EF of 40% noted. Status: Acute Code(s): I31.3 - Pericardial effusion (noninflammatory) Attestations Medical Necessity Statement*: Needs continued hospitalization in the ICU secondary to need for norepinephrine, respiratory failure Critical Care Time: Approximately 35 minutes spent in critical care time secondary to significant hypotension requiring norepinephrine, heart failure, respiratory failure Critical Care Time (min): 35 Coding Level of Care Code Acute Solutions Sales Executive for [facility] Diagnoses Hyponatremia E87.1 Respiratory failure J96.90 Chest pain R07.1 Chest pain type: chest pain on breathing Hypotension I95.0 Hypotension type: idiopathic hypotension Pneumonia J18.9 Pneumonia type: due to unspecified organism COPD (chronic obstructive pulmonary disease) J44.1 COPD type: COPD with acute exacerbation Abdominal aortic aneurysm I71.4 Presence of rupture: without rupture Atrial fibrillation I48.91 Atrial fibrillation type: unspecified Hypertension I10 Nonischemic cardiomyopathy I42.8 Pericardial effusion I31.3
[2019-05-25] MEDS: FUROsemide 10 mg/mL SDV 2mL 20 MG IVP (15:38)
[2019-05-25 16:52] LABS: Basophils % 0.3 %; Eosinophils # 0.2 10^3/uL (0.0-0.8); Hematocrit 44.4 % (42.0-52.0); Hemoglobin 14.8 g/dL (11.7-16.6); Lymphocytes # 1.6 10^3/uL (0.8-4.8); Lymphocytes % 10.4 %; Mean Corpuscular HGB Conc 33.3 g/dL (30.0-36.0); Mean Corpuscular Volume 93.1 fL (80-94); Mean Platelet Volume 11.3 fL (7.4-10.4); Monocytes # 2.3 10^3/uL (0.2-0.9); Monocytes % 15.1 %; Neutrophils # 11.2 10^3/uL (1.8-7.7); Neutrophils % 72.7 %; Nucleated Red Blood Cells % 0 %; Platelet Count 213 10^3/cmm (130-400); Red Blood Count 4.77 10^6/uL (4.1-5.3); Red Cell Distribution Width 12.4 % (12.1-15.1); White Blood Count 15.5 10^3/uL (4.0-10.0)
--- NOTE | 2019-05-25 16:59 | PC.NURSE ---
Patient notified of fluid restriction per Dr. Patel. Education performed with patient and daughter. Patient does have Dr. reilly at bedside and states he will finish this DR Reilly and then agree to fluid restrictions.
[2019-05-25 17:37] LABS: Anion Gap 16.8 (5-19); Blood Urea Nitrogen 15 mg/dL (8-23); Calcium 9.5 mg/Dl (8.8-10.2); Carbon Dioxide 23 mmol/L (22-29); Chloride 95 mmol/L (98-107); Glucose 119 mg/dL (74-106); Potassium 4.8 mmol/L (3.5-5.1); Sodium 130 mmol/L (136-145)
--- NOTE | 2019-05-25 18:16 | PC.NURSE ---
Urine pale yellow now.
--- NOTE | 2019-05-25 20:04 | PM.PN ---
Subjective Subjective: Interval history: Patient continues to have shortness of breath . He diuresed 600 Urine output. He had multiple episodes of chest pain noncardiac most likely pleuritic. EKG remains within normal limits of patient baseline Medications: Reviewed: Yes Vitals/I&O/Wt Last Vital Signs Temp 98.4 F 05/25/19 12:00 Pulse 101 H 05/25/19 16:00 Resp 17 05/25/19 16:00 BP 100/71 05/25/19 16:00 Pulse Ox 92 05/25/19 16:00 05/25/19 05/25/19 05/25/19 06:59 14:59 22:59 Intake Total 89.68 / 539.68 944.32 / 944.32 Output Total 400 / 900 800 / 800 700 / 1500 Balance -310.32 / -360.32 144.32 / 144.32 -700 / -555.68 Weight last 48 hrs Weight 194 lb 5 oz Weight 198 lb Physical Exam Narrative: EXAM NARRATIVE: GENERAL: Patient is alert, awake and oriented x3. But lethargic and short of breath NECK: No jugular vein distension. HEENT: No cyanosis. No icterus. No pallor. HEART: Regular S1 and S2. No murmur, rub or gallop. LUNGS: Clear bilaterally. ABDOMEN: Soft, nontender and mildly distended. Positive bowel sounds. No guarding, rebound or tenderness. CENTRAL NERVOUS SYSTEM: Grossly nonfocal. EXTREMITIES: Lower extremities with trace edema bilaterally. Data Micro: Micro: Microbiology 05/24/19 14:00 Blood Culture - Pr eliminary Blood NEGATIVE TO SEFERINO E 05/24/19 14:17 Blood Culture - Pr eliminary Blood NEGATIVE TO SEFERINO E A&P Assessment and plan (1) Nonischemic cardiomyopathy: We'll hold further Lasix due to hypotension and it appeared to me that patient is more on Dry side Status: Acute Code(s): I42.8 - Other cardiomyopathies (2) Atrial fibrillation: Continue holding sotalol for heart failure. May can use amiodarone is stable liver killian if indicated Status: Acute Qualifiers: Atrial fibrillation type: unspecified Qualified Code(s): I48.91 - Unspecified atrial fibrillation Code(s): I48.91 - Unspecified atrial fibrillation (3) Abdominal aortic aneurysm: Continue medical management for now. He follows up with Dr. Garcia as an outpatient Status: Acute Qualifiers: Presence of rupture: without rupture Qualified Code(s): I71.4 - Abdominal aortic aneurysm, without rupture Code(s): I71.4 - Abdominal aortic aneurysm, without rupture (4) Cirrhosis: As per medicine Status: Acute Qualifiers: Hepatic cirrhosis type: other cirrhosis Qualified Code(s): K74.69 - Other cirrhosis of liver Code(s): K74.60 - Unspecified cirrhosis of liver (5) COPD (chronic obstructive pulmonary disease): COPD exacerbation as per medicine continue IV antibiotics. Status: Acute Qualifiers: COPD type: COPD with acute exacerbation Qualified Code(s): J44.1 - Chronic obstructive pulmonary disease with (acute) exacerbation Code(s): J44.9 - Chronic obstructive pulmonary disease, unspecified (6) Pneumonia: He is on IV antibiotic. Continue aspirin medicine Status: Acute Qualifiers: Pneumonia type: due to unspecified organism Code(s): J18.9 - Pneumonia, unspecified organism (7) Chest pain: Most likely pleuritic in nature secondary to possible pneumoniaAre pericardial/Pleural effusion, Continue pain control. Status: Acute Qualifiers: Chest pain type: chest pain on breathing Qualified Code(s): R07.1 - Chest pain on breathing Code(s): R07.9 - Chest pain, unspecified (8) Pericardial effusion: Mild. Continue to monitor Status: Acute Code(s): I31.3 - Pericardial effusion (noninflammatory) (9) Hypotension: Could be due to sepsis with combination of decompensated heart failure. Continue IV antibiotic, will start patient on levophed. Status: Acute Qualifiers: Hypotension type: idiopathic hypotension Qualified Code(s): I95.0 - Idiopathic hypotension Code(s): I95.9 - Hypotension, unspecified Attestations Medical Necessity Statement*: Requires continuation hospitalization for above defined care. Coding Level of Care Code Acute Manager User Interface for [facility] History Expanded Problem Focused Exam Expanded Problem Focused Medical Decision Making Moderate Complexity Diagnoses Nonischemic cardiomyopathy I42.8 Atrial fibrillation I48.91 Atrial fibrillation type: unspecified Abdominal aortic aneurysm I71.4 Presence of rupture: without rupture Cirrhosis K74.69 Hepatic cirrhosis type: other cirrhosis COPD (chronic obstructive pulmonary disease) J44.1 COPD type: COPD with acute exacerbation Pneumonia J18.9 Pneumonia type: due to unspecified organism Chest pain R07.1 Chest pain type: chest pain on breathing Pericardial effusion I31.3 Hypotension I95.0 Hypotension type: idiopathic hypotension
[2019-05-25] MEDS: zolpidem 5 mg Tablet PO (21:09)
[2019-05-26] VITALS (18 sets, daily range): BP systolic 83–111; BP diastolic 50–93; PULSE 87–120; RESP 14–22; TEMP 36.4; O2SAT 90–97
[2019-05-26 05:22] LABS: Anion Gap 17.2 (5-19); Blood Urea Nitrogen 16 mg/dL (8-23); Carbon Dioxide 21 mmol/L (22-29); Chloride 97 mmol/L (98-107); Glucose 116 mg/dL (74-106); Potassium 4.2 mmol/L (3.5-5.1); Sodium 131 mmol/L (136-145)
[2019-05-26] MEDS: FUROsemide 10 mg/mL SDV 4mL 40 MG IVP ×2 (06:13→17:41)
[2019-05-26] MEDS: finasteride 5 mg Tablet PO (08:36)
[2019-05-26] MEDS: ferrous sulfate EC 325 mg Tablet PO (08:36)
[2019-05-26] MEDS: apixaban 5 mg Tablet PO ×2 (08:36→17:41)
[2019-05-26] MEDS: aspirin 81 mg Chew Tablet PO (08:36)
[2019-05-26] MEDS: atorvastatin 40 mg Tablet 80 MG PO (08:36)
--- NOTE | 2019-05-26 12:39 | PM.PN ---
Subjective Subjective: Interval history: Cheko feels like he is doing a little bit better. Does not complain of significant pain while I am in the room. States his breathing is easier. Does not feel swollen. Medications: Reviewed: Yes Vitals/I&O/Wt Last Vital Signs Temp 97.5 F L 05/26/19 00:00 Pulse 114 H 05/26/19 08:23 Resp 18 05/26/19 08:20 BP 94/75 05/26/19 08:00 Pulse Ox 97 05/26/19 08:20 05/25/19 05/26/19 05/26/19 22:59 06:59 14:59 Intake Total 120 / 120 Output Total 700 / 1500 350 / 1850 800 / 800 Balance -700 / -305.68 -350 / -655.68 -680 / -680 Weight last 48 hrs Weight 89.448 kg Weight 88.139 kg Physical Exam Narrative: EXAM NARRATIVE: General exam no apparent distress Cardiovascular irregular, irregular Lungs clear Abdomen is soft positive bowel sounds Extremities no cyst clubbing or edema Data Micro: Micro: Microbiology 05/24/19 14:00 Blood Culture - Pr eliminary Blood NEGATIVE TO SEFERINO E 05/24/19 14:17 Blood Culture - Pr eliminary Blood NEGATIVE TO SEFERINO E A&P Assessment and plan (1) Hyponatremia: Stabilized. Continue fluid restriction. Consider Lasix if we can get him off norepinephrine Status: Acute Code(s): E87.1 - Hypo-osmolality and hyponatremia (2) Respiratory failure: Improving Status: Acute Code(s): J96.90 - Respiratory failure, unspecified, unspecified whether with hypoxia or hypercapnia (3) Chest pain: Believed to be multifactorial CXR and WBC elevation believed to be due to pneumonia Started on Rocephin and Azithromycin Oxygen per protocol, RTAT Overall has improved somewhat Status: Acute Qualifiers: Chest pain type: chest pain on breathing Qualified Code(s): R07.1 - Chest pain on breathing Code(s): R07.9 - Chest pain, unspecified (4) Hypotension: Requiring norepinephrine. Hopefully this can be discontinued today. Nurses tapering Status: Acute Qualifiers: Hypotension type: idiopathic hypotension Qualified Code(s): I95.0 - Idiopathic hypotension Code(s): I95.9 - Hypotension, unspecified (5) Pneumonia: Rocephin, azithromycin. Repeat CBC tomorrow Status: Acute Qualifiers: Pneumonia type: due to unspecified organism Code(s): J18.9 - Pneumonia, unspecified organism (6) COPD (chronic obstructive pulmonary disease): Nebs Status: Acute Qualifiers: COPD type: COPD with acute exacerbation Qualified Code(s): J44.1 - Chronic obstructive pulmonary disease with (acute) exacerbation Code(s): J44.9 - Chronic obstructive pulmonary disease, unspecified (7) Abdominal aortic aneurysm: Unchanged by imaging Followed by Dr. Garcia Status: Acute Qualifiers: Presence of rupture: without rupture Qualified Code(s): I71.4 - Abdominal aortic aneurysm, without rupture Code(s): I71.4 - Abdominal aortic aneurysm, without rupture (8) Atrial fibrillation: Continue home Eliquis 5mg po BID sotalol 80mg BID is currently on hold Heart rate controlled currently Status: Acute Qualifiers: Atrial fibrillation type: unspecified Qualified Code(s): I48.91 - Unspecified atrial fibrillation Code(s): I48.91 - Unspecified atrial fibrillation (9) Hypertension: Now hypotensive, holding Aldactone, lisinopril. Weaning down norepinephrine Status: Acute Code(s): I10 - Essential (primary) hypertension (10) Nonischemic cardiomyopathy: LVEF of 25%. Repeat echo demonstrates EF has improved to 40% Followed by Dr. Navarro Cardiology following Status: Acute Code(s): I42.8 - Other cardiomyopathies (11) Pericardial effusion: Echocardiogram did not show pericardial effusion. EF of 40% noted. Status: Acute Code(s): I31.3 - Pericardial effusion (noninflammatory) Attestations Medical Necessity Statement*: Needs continued hospital stay for IV antibiotics secondary to pneumonia Critical Care Time: 35 minutes spent in ICU evaluation, secondary to need for pressors for hypotension Coding Level of Care Code Acute Grounds Foreman for [facility] Diagnoses Hyponatremia E87.1 Respiratory failure J96.90 Chest pain R07.1 Chest pain type: chest pain on breathing Hypotension I95.0 Hypotension type: idiopathic hypotension Pneumonia J18.9 Pneumonia type: due to unspecified organism COPD (chronic obstructive pulmonary disease) J44.1 COPD type: COPD with acute exacerbation Abdominal aortic aneurysm I71.4 Presence of rupture: without rupture Atrial fibrillation I48.91 Atrial fibrillation type: unspecified Hypertension I10 Nonischemic cardiomyopathy I42.8 Pericardial effusion I31.3
[2019-05-26] MEDS: cefTRIAXone 1,000 MG in sodium chloride 0.9% (plus) 50 ML 100 MG IV (13:16)
[2019-05-26] MEDS: azithromycin 500 MG in sodium chloride 0.9% 250 ML 250 MG IV (14:06)
[2019-05-26] MEDS: acetaminophen 325 mg Tablet 650 MG PO (17:41)
--- NOTE | 2019-05-26 19:22 | P.PN_ITS ---
Subjective Subjective: Interval history: Feeling steadily better. Medications: Reviewed: Yes Vitals/I&O/Wt Last Vital Signs Temp 97.5 F L 05/26/19 00:00 Pulse 108 H 05/26/19 18:00 Resp 17 05/26/19 18:00 BP 109/93 05/26/19 18:00 Pulse Ox 93 05/26/19 18:00 05/26/19 05/26/19 05/26/19 06:59 14:59 22:59 Intake Total 424 / 424 250 / 674 Output Total 350 / 1850 800 / 800 Balance -350 / -655.68 -376 / -376 250 / -126 Weight last 48 hrs Weight 197 lb 3.2 oz Weight 194 lb 5 oz Physical Exam Narrative: EXAM NARRATIVE: GENERAL: Patient is alert, awake and oriented x3. NECK: No jugular vein distension. HEENT: No cyanosis. No icterus. No pallor. HEART: Regularly irregular S1 and S2. No murmur, rub or gallop. LUNGS: Decreased breath sound bilaterally. ABDOMEN: Soft, nontender and nondistended. Positive bowel sounds. No guarding, rebound or tenderness. CENTRAL NERVOUS SYSTEM: Grossly nonfocal. EXTREMITIES: Lower extremities without edema bilaterally. Data Micro: Micro: Microbiology 05/24/19 14:00 Blood Culture - Pr eliminary Blood NEGATIVE TO SEFERINO E 05/24/19 14:17 Blood Culture - Pr eliminary Blood NEGATIVE TO SEFERINO E A&P Assessment and plan (1) Nonischemic cardiomyopathy: We'll hold further Lasix due to hypotension and it appeared to me that patient is more on Dry side Status: Acute Code(s): I42.8 - Other cardiomyopathies (2) Atrial fibrillation: Continue holding sotalol for heart failure. May can use amiodarone if needed we may start patient on amiodaron from tomorrow Status: Acute Qualifiers: Atrial fibrillation type: unspecified Qualified Code(s): I48.91 - Unspecified atrial fibrillation Code(s): I48.91 - Unspecified atrial fibrillation (3) Abdominal aortic aneurysm: Continue medical management for now. He follows up with Dr. Garcia as an outpatient Status: Acute Qualifiers: Presence of rupture: without rupture Qualified Code(s): I71.4 - Abdominal aortic aneurysm, without rupture Code(s): I71.4 - Abdominal aortic aneurysm, without rupture (4) Cirrhosis: As per medicine Status: Acute Qualifiers: Hepatic cirrhosis type: other cirrhosis Qualified Code(s): K74.69 - Other cirrhosis of liver Code(s): K74.60 - Unspecified cirrhosis of liver (5) COPD (chronic obstructive pulmonary disease): COPD exacerbation as per medicine continue IV antibiotics. Status: Acute Qualifiers: COPD type: COPD with acute exacerbation Qualified Code(s): J44.1 - Chronic obstructive pulmonary disease with (acute) exacerbation Code(s): J44.9 - Chronic obstructive pulmonary disease, unspecified (6) Pneumonia: He is on IV antibiotic. Continue aspirin medicine Status: Acute Qualifiers: Pneumonia type: due to unspecified organism Qualified Code(s): J18.9 - Pneumonia, unspecified organism Code(s): J18.9 - Pneumonia, unspecified organism (7) Chest pain: Most likely pleuritic in nature secondary to possible pneumoniaAre pericardial/Pleural effusion, Continue pain control. Status: Acute Qualifiers: Chest pain type: chest pain on breathing Qualified Code(s): R07.1 - Chest pain on breathing Code(s): R07.9 - Chest pain, unspecified (8) Pericardial effusion: Mild. Continue to monitor Status: Acute Code(s): I31.3 - Pericardial effusion (noninflammatory) (9) Hypotension: Could be due to sepsis with combination of decompensated heart failure. Continue IV antibiotic, will start patient on levophed. Status: Acute Qualifiers: Hypotension type: idiopathic hypotension Qualified Code(s): I95.0 - Idiopathic hypotension Code(s): I95.9 - Hypotension, unspecified Attestations Medical Necessity Statement*: Patient reguires continuation hospitalization for above defined care Coding Level of Care Code Acute Corrections Corporal for [facility] Diagnoses Nonischemic cardiomyopathy I42.8 Atrial fibrillation I48.91 Atrial fibrillation type: unspecified Abdominal aortic aneurysm I71.4 Presence of rupture: without rupture Cirrhosis K74.69 Hepatic cirrhosis type: other cirrhosis COPD (chronic obstructive pulmonary disease) J44.1 COPD type: COPD with acute exacerbation Pneumonia J18.9 Pneumonia type: due to unspecified organism Chest pain R07.1 Chest pain type: chest pain on breathing Pericardial effusion I31.3 Hypotension I95.0 Hypotension type: idiopathic hypotension
[2019-05-26] MEDS: zolpidem 5 mg Tablet PO (21:13)
[2019-05-27] VITALS (80 sets, daily range): BP systolic 88–131; BP diastolic 49–82; PULSE 85–132; RESP 13–49; TEMP 36.4–36.6; O2SAT 68–99
[2019-05-27] MEDS: cefTRIAXone 1,000 MG in sodium chloride 0.9% (plus) 50 ML 100 MG IV ×2 (01:18→14:08)
[2019-05-27] MEDS: FUROsemide 10 mg/mL SDV 4mL 40 MG IVP (06:01)
[2019-05-27] MEDS: morphine 4 mg/mL SDV 1 mL 2 MG IVP (06:02)
[2019-05-27 06:22] LABS: Basophils % 0.3 %; Eosinophils # 0.2 10^3/uL (0.0-0.8); Eosinophils % 1.2 %; Hematocrit 40.3 % (42.0-52.0); Hemoglobin 13.8 g/dL (11.7-16.6); Lymphocytes # 1.7 10^3/uL (0.8-4.8); Lymphocytes % 12.7 %; Mean Corpuscular HGB Conc 34.2 g/dL (30.0-36.0); Mean Corpuscular Hemoglobin 31.5 pg (28.0-34.0); Monocytes # 1.7 10^3/uL (0.2-0.9); Monocytes % 13.1 %; Neutrophils # 9.5 10^3/uL (1.8-7.7); Neutrophils % 72.2 %; Nucleated Red Blood Cells % 0 %; Platelet Count 252 10^3/cmm (130-400); Red Blood Count 4.38 10^6/uL (4.1-5.3); Red Cell Distribution Width 12.3 % (12.1-15.1); White Blood Count 13.1 10^3/uL (4.0-10.0)
[2019-05-27 06:48] LABS: Anion Gap 17.3 (5-19); Blood Urea Nitrogen 19 mg/dL (8-23); Calcium 9.7 mg/Dl (8.8-10.2); Carbon Dioxide 22 mmol/L (22-29); Chloride 100 mmol/L (98-107); Glucose 126 mg/dL (74-106); Potassium 4.3 mmol/L (3.5-5.1); Sodium 135 mmol/L (136-145)
--- NOTE | 2019-05-27 07:57 | PM.PN ---
Subjective Subjective: Interval history: Cheko reports he is feeling very well. Nurse alerts me that his heart rate was noted to be high at shift change. Patient denies any chest pain or palpitations Medications: Reviewed: Yes Vitals/I&O/Wt Last Vital Signs Temp 97.9 F 05/27/19 06:00 Pulse 115 H 05/27/19 06:00 Resp 20 H 05/27/19 06:02 BP 111/73 05/27/19 06:00 Pulse Ox 96 05/27/19 06:00 05/26/19 05/27/19 05/27/19 22:59 06:59 14:59 Intake Total 250 / 674 Output Total 300 / 1100 100 / 1200 Balance -50 / -426 -100 / -526 Weight last 48 hrs Weight 87.997 kg Weight 89.448 kg Physical Exam Narrative: EXAM NARRATIVE: General exam no apparent distress Cardiovascular irregular, irregular. Heart rate 140 Lungs clear but with diminished breath sounds bilaterally Abdomen is soft, positive bowel sounds Extremities no cyanosis clubbing or edema Data : 05/27/19 05:35 05/27/19 05:35 A&P Assessment and plan (1) Hyponatremia: Stabilized. Continue fluid restriction. Status: Acute Code(s): E87.1 - Hypo-osmolality and hyponatremia (2) Respiratory failure: Significantly improved Status: Acute Code(s): J96.90 - Respiratory failure, unspecified, unspecified whether with hypoxia or hypercapnia (3) Chest pain: Believed to be multifactorial Largely resolved Status: Acute Qualifiers: Chest pain type: chest pain on breathing Qualified Code(s): R07.1 - Chest pain on breathing Code(s): R07.9 - Chest pain, unspecified (4) Hypotension: Norepinephrine discontinued yesterday. Doing well Status: Acute Qualifiers: Hypotension type: idiopathic hypotension Qualified Code(s): I95.0 - Idiopathic hypotension Code(s): I95.9 - Hypotension, unspecified (5) Pneumonia: Rocephin, azithromycin. Improving Status: Acute Qualifiers: Pneumonia type: due to unspecified organism Qualified Code(s): J18.9 - Pneumonia, unspecified organism Code(s): J18.9 - Pneumonia, unspecified organism (6) COPD (chronic obstructive pulmonary disease): Nebs Status: Acute Qualifiers: COPD type: COPD with acute exacerbation Qualified Code(s): J44.1 - Chronic obstructive pulmonary disease with (acute) exacerbation Code(s): J44.9 - Chronic obstructive pulmonary disease, unspecified (7) Abdominal aortic aneurysm: Unchanged by imaging Followed by Dr. Garcia Status: Acute Qualifiers: Presence of rupture: without rupture Qualified Code(s): I71.4 - Abdominal aortic aneurysm, without rupture Code(s): I71.4 - Abdominal aortic aneurysm, without rupture (8) Atrial fibrillation: Continue home Eliquis 5mg po BID sotalol 80mg BID is currently on hold Heart rate now significantly elevated. Metoprolol 2.5 mg IV now. Will discuss with cardiology whether we should resume sotalol or initiate other medication. We will be initiating an amiodarone drip. Status: Acute Qualifiers: Atrial fibrillation type: unspecified Qualified Code(s): I48.91 - Unspecified atrial fibrillation Code(s): I48.91 - Unspecified atrial fibrillation (9) Hypertension: Lisinopril, Aldactone on hold secondary to hypotension Status: Acute Code(s): I10 - Essential (primary) hypertension (10) Nonischemic cardiomyopathy: LVEF of 25%. Repeat echo demonstrates EF has improved to 40% Followed by Dr. Navarro Cardiology following Discontinue IV Lasix, initiate 40 mg of Lasix p.o. daily Status: Acute Code(s): I42.8 - Other cardiomyopathies (11) Pericardial effusion: Echocardiogram did not show pericardial effusion. EF of 40% noted. Status: Acute Code(s): I31.3 - Pericardial effusion (noninflammatory) Attestations Medical Necessity Statement*: Needs continued hospitalization, for adjustment of medication for atrial fibrillation with rapid ventricular rate. Coding Level of Care Code Acute Commercial Lines Account Executive for [facility] Fwd Diagnoses Hyponatremia E87.1 Respiratory failure J96.90 Chest pain R07.1 Chest pain type: chest pain on breathing Hypotension I95.0 Hypotension type: idiopathic hypotension Pneumonia J18.9 Pneumonia type: due to unspecified organism COPD (chronic obstructive pulmonary disease) J44.1 COPD type: COPD with acute exacerbation Abdominal aortic aneurysm I71.4 Presence of rupture: without rupture Atrial fibrillation I48.91 Atrial fibrillation type: unspecified Hypertension I10 Nonischemic cardiomyopathy I42.8 Pericardial effusion I31.3
[2019-05-27] MEDS: metoprolol tartrate 1 mg/1 mL SDV 5 mL 2.5 MG IV (08:30)
[2019-05-27] MEDS: atorvastatin 40 mg Tablet 80 MG PO (09:05)
[2019-05-27] MEDS: finasteride 5 mg Tablet PO (09:06)
[2019-05-27] MEDS: ferrous sulfate EC 325 mg Tablet PO (09:06)
[2019-05-27] MEDS: apixaban 5 mg Tablet PO ×2 (09:06→17:28)
[2019-05-27] MEDS: aspirin 81 mg Chew Tablet PO (09:06)
--- NOTE | 2019-05-27 11:29 | P.PN_ITS ---
Subjective Subjective: Interval history: Patient had episode of A. fib with rapid ventricular response expected this morning. Overall he is doing much better hypernatremia has improved. He is feeling better he still would like to go home to see chief's game Medications: Reviewed: Yes Vitals/I&O/Wt Last Vital Signs Temp 97.6 F 05/27/19 09:32 Pulse 122 H 05/27/19 10:00 Resp 24 H 05/27/19 10:00 BP 101/75 05/27/19 10:00 Pulse Ox 92 05/27/19 10:00 05/26/19 05/27/19 05/27/19 22:59 06:59 14:59 Intake Total 250 / 674 270 / 270 Output Total 300 / 1100 100 / 1200 940 / 940 Balance -50 / -426 -100 / -526 -670 / -670 Weight last 48 hrs Weight 194 lb Weight 197 lb 3.2 oz Physical Exam Narrative: EXAM NARRATIVE: GENERAL: Patient is alert, awake and oriented x3. NECK: No jugular vein distension. HEENT: No cyanosis. No icterus. No pallor. HEART: Regularly irregular S1 and S2. No murmur, rub or gallop. LUNGS: Decreased breath sound bilaterally. ABDOMEN: Soft, nontender and nondistended. Positive bowel sounds. No guarding, rebound or tenderness. CENTRAL NERVOUS SYSTEM: Grossly nonfocal. EXTREMITIES: Lower extremities without edema bilaterally. Data : 05/27/19 05:35 05/27/19 05:35 A&P Assessment and plan (1) Nonischemic cardiomyopathy: Appeared to be compensated. Patient has been switched by medicine to by mouth Lasix Status: Acute Code(s): I42.8 - Other cardiomyopathies (2) Atrial fibrillation: Patient has moderately depressed LV function with heart failure, He was on sotalol in his case at this point appropriate medicine is amiodarone keeping in mind cardmyopathy and heart failure. Status: Acute Qualifiers: Atrial fibrillation type: unspecified Qualified Code(s): I48.91 - Unspecified atrial fibrillation Code(s): I48.91 - Unspecified atrial fibrillation (3) Abdominal aortic aneurysm: Continue medical management for now. He follows up with Dr. Garcia as an outpatient Status: Acute Qualifiers: Presence of rupture: without rupture Qualified Code(s): I71.4 - Abdominal aortic aneurysm, without rupture Code(s): I71.4 - Abdominal aortic aneurysm, without rupture (4) Cirrhosis: As per medicine Status: Acute Qualifiers: Hepatic cirrhosis type: other cirrhosis Qualified Code(s): K74.69 - Other cirrhosis of liver Code(s): K74.60 - Unspecified cirrhosis of liver (5) COPD (chronic obstructive pulmonary disease): COPD exacerbation as per medicine continue IV antibiotics. Status: Acute Qualifiers: COPD type: COPD with acute exacerbation Qualified Code(s): J44.1 - Chronic obstructive pulmonary disease with (acute) exacerbation Code(s): J44.9 - Chronic obstructive pulmonary disease, unspecified (6) Pneumonia: He is on IV antibiotic. Continue aspirin medicine Status: Acute Qualifiers: Pneumonia type: due to unspecified organism Qualified Code(s): J18.9 - Pneumonia, unspecified organism Code(s): J18.9 - Pneumonia, unspecified organism (7) Chest pain: Most likely pleuritic in nature secondary to possible pneumoniaAre pericardial/Pleural effusion, Continue pain control. Status: Acute Qualifiers: Chest pain type: chest pain on breathing Qualified Code(s): R07.1 - Chest pain on breathing Code(s): R07.9 - Chest pain, unspecified (8) Pericardial effusion: Mild. Continue to monitor Status: Acute Code(s): I31.3 - Pericardial effusion (noninflammatory) (9) Hypotension: Could be due to sepsis with combination of decompensated heart failure. Continue IV antibiotic, will start patient on levophed. Status: Acute Qualifiers: Hypotension type: idiopathic hypotension Qualified Code(s): I95.0 - Idiopathic hypotension Code(s): I95.9 - Hypotension, unspecified Attestations Medical Necessity Statement*: As per medicine Coding Level of Care Code Acute Microbiological Laboratory Technician for Chg Fwd History Expanded Problem Focused Exam Expanded Problem Focused Medical Decision Making Moderate Complexity Diagnoses Nonischemic cardiomyopathy I42.8 Atrial fibrillation I48.91 Atrial fibrillation type: unspecified Abdominal aortic aneurysm I71.4 Presence of rupture: without rupture Cirrhosis K74.69 Hepatic cirrhosis type: other cirrhosis COPD (chronic obstructive pulmonary disease) J44.1 COPD type: COPD with acute exacerbation Pneumonia J18.9 Pneumonia type: due to unspecified organism Chest pain R07.1 Chest pain type: chest pain on breathing Pericardial effusion I31.3 Hypotension I95.0 Hypotension type: idiopathic hypotension
[2019-05-27] MEDS: azithromycin 500 MG in sodium chloride 0.9% 250 ML 250 MG IV (14:46)
[2019-05-27] MEDS: zolpidem 5 mg Tablet PO (20:35)
[2019-05-28] VITALS (49 sets, daily range): BP systolic 69–119; BP diastolic 50–82; PULSE 81–122; RESP 12–48; TEMP 36.4–37.2; O2SAT 88–96
[2019-05-28] MEDS: cefTRIAXone 1,000 MG in sodium chloride 0.9% (plus) 50 ML 100 MG IV ×2 (01:20→12:39)
[2019-05-28] MEDS: apixaban 5 mg Tablet PO ×2 (08:27→17:59)
[2019-05-28] MEDS: finasteride 5 mg Tablet PO (08:27)
[2019-05-28] MEDS: ferrous sulfate EC 325 mg Tablet PO (08:27)
[2019-05-28] MEDS: aspirin 81 mg Chew Tablet PO (08:27)
[2019-05-28] MEDS: atorvastatin 40 mg Tablet 80 MG PO (08:27)
--- NOTE | 2019-05-28 09:53 | PM.PN ---
Subjective Subjective: Interval history: Cheko is a chronically ill man who was admitted 4 days ago with chest pain, shortness of breath and rapid atrial fibrillation. He was diagnosed with pneumonia and congestive heart failure. He has been treated with antibiotics and has been diuresed. Lasix was put on hold this morning. Influenza titers were negative. He was also on sotalol which was stopped. His heart rate then went up to in the 150 range. Yesterday morning he was started on intravenous amiodarone. He has been on Eliquis throughout. He has been somewhat hyponatremic. CTA of the chest was negative for pulmonary embolism. An echo revealed global hypokinesis with ejection fraction of 40%. This is improved from 25% the last evaluation. He has a number of other medical problems that includes a AAA, cirrhosis and a nonischemic cardiomyopathy. He has an ICD in place. Today he wants to go home because he wants to watch the [employer] game which comes on tomorrow. He thinks that he might be getting better. His sodium was 123 on admission. It is now 135. Medications: Reviewed: Yes Vitals/I&O/Wt Last Vital Signs Temp 98.9 F 05/28/19 05:10 Pulse 92 05/28/19 09:04 Resp 18 05/28/19 09:02 BP 116/82 05/28/19 08:00 Pulse Ox 94 05/28/19 09:02 05/27/19 05/28/19 05/28/19 22:59 06:59 14:59 Intake Total 542.8 / 1052.8 240 / 240 Output Total 240 / 1660 400 / 2060 Balance 302.8 / -607.2 -400 / -1007.2 240 / 240 Weight last 48 hrs Weight 194 lb 9 oz Weight 194 lb Physical Exam Narrative: EXAM NARRATIVE: GENERAL: In general he is comfortable mildly short of breath at rest. HEENT: Exam within normal limits. NECK: Supple without jugular vein distention. The carotid upstroke is normal without bruits. BACK: Exam normal. LUNGS: Decreased breath sounds bilaterally. HEART: Irregular rate and rhythm ABDOMEN: Benign without organomegaly or tenderness. EXTREMITIES: No edema. NEUROLOGIC: Exam normal. SKIN: Unremarkable. Data : 05/27/19 05:35 05/27/19 05:35 A&P Assessment and plan (1) Tobacco abuse: Status: Acute Code(s): Z72.0 - Tobacco use (2) Hyponatremia: Status: Acute Code(s): E87.1 - Hypo-osmolality and hyponatremia (3) Respiratory failure: Status: Acute Code(s): J96.90 - Respiratory failure, unspecified, unspecified whether with hypoxia or hypercapnia (4) Hypotension: Status: Acute Qualifiers: Hypotension type: idiopathic hypotension Qualified Code(s): I95.0 - Idiopathic hypotension Code(s): I95.9 - Hypotension, unspecified (5) Pericardial effusion: Status: Acute Code(s): I31.3 - Pericardial effusion (noninflammatory) (6) Pneumonia: Status: Acute Qualifiers: Pneumonia type: due to unspecified organism Qualified Code(s): J18.9 - Pneumonia, unspecified organism Code(s): J18.9 - Pneumonia, unspecified organism (7) Chest pain: Status: Acute Qualifiers: Chest pain type: chest pain on breathing Qualified Code(s): R07.1 - Chest pain on breathing Code(s): R07.9 - Chest pain, unspecified (8) COPD (chronic obstructive pulmonary disease): Status: Acute Qualifiers: COPD type: COPD with acute exacerbation Qualified Code(s): J44.1 - Chronic obstructive pulmonary disease with (acute) exacerbation Code(s): J44.9 - Chronic obstructive pulmonary disease, unspecified (9) History of implantable cardioverter-defibrillator (ICD) placement: Status: Acute Code(s): Z95.810 - Presence of automatic (implantable) cardiac defibrillator (10) Thrombocytopenia: Status: Acute Code(s): D69.6 - Thrombocytopenia, unspecified (11) Hyperlipidemia: Status: Acute Code(s): E78.5 - Hyperlipidemia, unspecified (12) Abdominal aortic aneurysm: Status: Acute Qualifiers: Presence of rupture: without rupture Qualified Code(s): I71.4 - Abdominal aortic aneurysm, without rupture Code(s): I71.4 - Abdominal aortic aneurysm, without rupture (13) Atrial fibrillation: Status: Acute Qualifiers: Atrial fibrillation type: unspecified Qualified Code(s): I48.91 - Unspecified atrial fibrillation Code(s): I48.91 - Unspecified atrial fibrillation (14) Hypertension: Status: Acute Code(s): I10 - Essential (primary) hypertension (15) Nonischemic cardiomyopathy: Status: Acute Code(s): I42.8 - Other cardiomyopathies (16) Anticoagulation adequate: Status: Acute Code(s): Z79.01 - superintendent terminal (current) use of anticoagulants (17) CHF (congestive heart failure): Status: Acute Code(s): I50.9 - Heart failure, unspecified Additional A&P Information I am going to change him over to amiodarone by mouth. I am also going to add back a low-dose p.o. beta-brea since his heart rate is not well enough controlled. Otherwise he seems euvolemic today. Pneumonia is being treated. Heart failure appears compensated. Attestations Medical Necessity Statement*: Needs continued hospitalization for management of the above complex problems. 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 [employer] Fwd History Comprehensive Exam Comprehensive Medical Decision Making High Complexity Diagnoses Tobacco abuse Z72.0 Hyponatremia E87.1 Respiratory failure J96.90 Hypotension I95.0 Hypotension type: idiopathic hypotension Pericardial effusion I31.3 Pneumonia J18.9 Pneumonia type: due to unspecified organism Chest pain R07.1 Chest pain type: chest pain on breathing COPD (chronic obstructive pulmonary disease) J44.1 COPD type: COPD with acute exacerbation History of implantable cardioverter-defibrillator (ICD) placement Z95.810 Thrombocytopenia D69.6 Hyperlipidemia E78.5 Abdominal aortic aneurysm I71.4 Presence of rupture: without rupture Atrial fibrillation I48.91 Atrial fibrillation type: unspecified Hypertension I10 Nonischemic cardiomyopathy I42.8 Anticoagulation adequate Z79.01 CHF (congestive heart failure) I50.9
[2019-05-28] MEDS: amiodarone 200 mg Tablet 400 MG PO ×2 (10:55→17:59)
[2019-05-28] MEDS: metoprolol tartrate 25 mg Tablet 12.5 MG PO ×2 (10:56→17:59)
--- NOTE | 2019-05-28 12:25 | PM.PN ---
Subjective Subjective: Interval history: Cheko reports he is doing well. No chest pain. I have discussed this case with cardiology today and we will be changing medications to p.o., hopefully with the intention of him discharging tomorrow Medications: Reviewed: Yes Vitals/I&O/Wt Last Vital Signs Temp 98.9 F 05/28/19 05:10 Pulse 92 05/28/19 09:04 Resp 18 05/28/19 09:02 BP 116/82 05/28/19 08:00 Pulse Ox 94 05/28/19 09:02 05/27/19 05/28/19 05/28/19 22:59 06:59 14:59 Intake Total 542.8 / 1052.8 440 / 440 Output Total 240 / 1660 400 / 2060 100 / 100 Balance 302.8 / -607.2 -400 / -1007.2 340 / 340 Weight last 48 hrs Weight 88.252 kg Weight 87.997 kg Physical Exam Narrative: EXAM NARRATIVE: General exam no apparent distress Cardiovascular irregular, irregular. Heart rate accelerated this morning but this afternoon is down to 80 Lungs clear but with diminished breath sounds bilaterally Abdomen is soft, positive bowel sounds Extremities no cyanosis clubbing or edema Data : 05/27/19 05:35 05/27/19 05:35 A&P Assessment and plan (1) Hyponatremia: Stabilized. Continue fluid restriction. Holding Lasix today secondary to some hypotension but likely will resume lower dose tomorrow, perhaps 20 mg Status: Acute Code(s): E87.1 - Hypo-osmolality and hyponatremia (2) Respiratory failure: Significantly improved Status: Acute Code(s): J96.90 - Respiratory failure, unspecified, unspecified whether with hypoxia or hypercapnia (3) Chest pain: Believed to be multifactorial Largely resolved Status: Acute Qualifiers: Chest pain type: chest pain on breathing Qualified Code(s): R07.1 - Chest pain on breathing Code(s): R07.9 - Chest pain, unspecified (4) Hypotension: Norepinephrine discontinued several days ago. Doing well Status: Acute Qualifiers: Hypotension type: idiopathic hypotension Qualified Code(s): I95.0 - Idiopathic hypotension Code(s): I95.9 - Hypotension, unspecified (5) Pneumonia: Rocephin, azithromycin. Improving Status: Acute Qualifiers: Pneumonia type: due to unspecified organism Qualified Code(s): J18.9 - Pneumonia, unspecified organism Code(s): J18.9 - Pneumonia, unspecified organism (6) COPD (chronic obstructive pulmonary disease): Nebs Status: Acute Qualifiers: COPD type: COPD with acute exacerbation Qualified Code(s): J44.1 - Chronic obstructive pulmonary disease with (acute) exacerbation Code(s): J44.9 - Chronic obstructive pulmonary disease, unspecified (7) Abdominal aortic aneurysm: Unchanged by imaging Followed by Dr. Garcia Status: Acute Qualifiers: Presence of rupture: without rupture Qualified Code(s): I71.4 - Abdominal aortic aneurysm, without rupture Code(s): I71.4 - Abdominal aortic aneurysm, without rupture (8) Atrial fibrillation: Continue home Eliquis 5mg po BID Sotalol has been discontinued. Low-dose beta-brea added by cardiology. Amiodarone changed to p.o. Status: Acute Qualifiers: Atrial fibrillation type: unspecified Qualified Code(s): I48.91 - Unspecified atrial fibrillation Code(s): I48.91 - Unspecified atrial fibrillation (9) Hypertension: Lisinopril, Aldactone on hold secondary to hypotension. Consider reinitiation, if blood pressure improves Status: Acute Code(s): I10 - Essential (primary) hypertension (10) Nonischemic cardiomyopathy: LVEF of 25%. Repeat echo demonstrates EF has improved to 40% Followed by Dr. Navarro Cardiology following Discontinue IV Lasix, initiate 40 mg of Lasix p.o. daily Status: Acute Code(s): I42.8 - Other cardiomyopathies (11) Pericardial effusion: Echocardiogram did not show pericardial effusion. EF of 40% noted. Status: Acute Code(s): I31.3 - Pericardial effusion (noninflammatory) Attestations Medical Necessity Statement*: To need hospitalization for adjustment of medications for atrial fibrillation with rapid ventricular rate. Coding Level of Care Code Acute Electro Winning Operator for [facility] Rajiv Diagnoses Hyponatremia E87.1 Respiratory failure J96.90 Chest pain R07.1 Chest pain type: chest pain on breathing Hypotension I95.0 Hypotension type: idiopathic hypotension Pneumonia J18.9 Pneumonia type: due to unspecified organism COPD (chronic obstructive pulmonary disease) J44.1 COPD type: COPD with acute exacerbation Abdominal aortic aneurysm I71.4 Presence of rupture: without rupture Atrial fibrillation I48.91 Atrial fibrillation type: unspecified Hypertension I10 Nonischemic cardiomyopathy I42.8 Pericardial effusion I31.3
[2019-05-28] MEDS: azithromycin 500 MG in sodium chloride 0.9% 250 ML 250 MG IV (13:22)
[2019-05-28] MEDS: zolpidem 5 mg Tablet PO (20:37)
--- NOTE | 2019-05-28 20:39 | PC.NURSE ---
Gave Ambien 5mg at bedtime as per patient request.
[2019-05-29] VITALS (8 sets, daily range): BP systolic 93–113; BP diastolic 61–87; PULSE 31–101; RESP 19–38; TEMP 36.6–36.8; O2SAT 92–98; BMI 31.5
[2019-05-29] MEDS: cefTRIAXone 1,000 MG in sodium chloride 0.9% (plus) 50 ML 100 MG IV (00:52)
[2019-05-29 05:09] LABS: Basophils # 0.1 10^3/uL (0.0-0.1); Basophils % 0.5 %; Eosinophils # 0.2 10^3/uL (0.0-0.8); Eosinophils % 1.9 %; Hematocrit 38.9 % (42.0-52.0); Hemoglobin 12.9 g/dL (11.7-16.6); Lymphocytes # 1.7 10^3/uL (0.8-4.8); Lymphocytes % 15.8 %; Mean Corpuscular HGB Conc 33.2 g/dL (30.0-36.0); Mean Corpuscular Hemoglobin 31.8 pg (28.0-34.0); Mean Corpuscular Volume 95.8 fL (80-94); Mean Platelet Volume 11.5 fL (7.4-10.4); Monocytes # 1.5 10^3/uL (0.2-0.9); Monocytes % 13.9 %; Neutrophils # 7.5 10^3/uL (1.8-7.7); Neutrophils % 67.4 %; Nucleated Red Blood Cells % 0 %; Platelet Count 274 10^3/cmm (130-400); Red Blood Count 4.06 10^6/uL (4.1-5.3); Red Cell Distribution Width 12.3 % (12.1-15.1)
[2019-05-29 05:34] LABS: Anion Gap 17.2 (5-19); Blood Urea Nitrogen 14 mg/dL (8-23); Calcium 9.8 mg/Dl (8.8-10.2); Carbon Dioxide 23 mmol/L (22-29); Chloride 96 mmol/L (98-107); Glucose 107 mg/dL (74-106); Potassium 4.2 mmol/L (3.5-5.1); Sodium 132 mmol/L (136-145)
--- NOTE | 2019-05-29 08:16 | P.PN_ITS ---
Subjective Subjective: Interval history: Cheko has been moved out of the ICU to the first floor. Yesterday we changed his amiodarone from intravenous to by mouth form. We added a beta-brea. He seems to have tolerated that nicely. His heart rate is down in the 80s. Blood pressure remains stable. He is still upset about not being able to watch the football game. Vitals/I&O/Wt Last Vital Signs Temp 98 F 05/29/19 04:00 Pulse 83 05/29/19 06:00 Resp 22 H 05/29/19 06:00 BP 112/87 05/29/19 04:00 Pulse Ox 98 05/29/19 04:00 05/28/19 05/29/19 05/29/19 22:59 06:59 14:59 Output Total 200 / 300 675 / 975 Balance -200 / 190 -675 / -485 Weight last 48 hrs Weight 201 lb 8 oz Weight 201 lb 8 oz Weight 194 lb 9 oz Physical Exam Narrative: EXAM NARRATIVE: GENERAL: In general he is comfortable HEENT: Exam within normal limits. NECK: Supple without jugular vein distention. The carotid upstroke is normal without bruits. BACK: Exam normal. LUNGS: Decreased breath sounds with occasional wheezes HEART: Irregular rate and rhythm ABDOMEN: Benign without organomegaly or tenderness. EXTREMITIES: No edema. NEUROLOGIC: Exam normal. SKIN: Unremarkable. Data : 05/29/19 04:22 05/29/19 04:22 A&P Assessment and plan (1) CHF (congestive heart failure): Status: Acute Code(s): I50.9 - Heart failure, unspecified (2) Anticoagulation adequate: Status: Acute Code(s): Z79.01 - shelter (current) use of anticoagulants (3) Tobacco abuse: Status: Acute Code(s): Z72.0 - Tobacco use (4) History of implantable cardioverter-defibrillator (ICD) placement: Status: Acute Code(s): Z95.810 - Presence of automatic (implantable) cardiac defibrillator (5) Hyponatremia: Status: Acute Code(s): E87.1 - Hypo-osmolality and hyponatremia (6) Respiratory failure: Status: Acute Code(s): J96.90 - Respiratory failure, unspecified, unspecified whether with hypoxia or hypercapnia (7) Hypotension: Status: Acute Qualifiers: Hypotension type: idiopathic hypotension Qualified Code(s): I95.0 - Idiopathic hypotension Code(s): I95.9 - Hypotension, unspecified (8) Pneumonia: Status: Acute Qualifiers: Pneumonia type: due to unspecified organism Qualified Code(s): J18.9 - Pneumonia, unspecified organism Code(s): J18.9 - Pneumonia, unspecified organism (9) Chest pain: Status: Acute Qualifiers: Chest pain type: chest pain on breathing Qualified Code(s): R07.1 - Chest pain on breathing Code(s): R07.9 - Chest pain, unspecified (10) COPD (chronic obstructive pulmonary disease): Status: Acute Qualifiers: COPD type: COPD with acute exacerbation Qualified Code(s): J44.1 - Chronic obstructive pulmonary disease with (acute) exacerbation Code(s): J44.9 - Chronic obstructive pulmonary disease, unspecified (11) Cirrhosis: Status: Acute Qualifiers: Hepatic cirrhosis type: other cirrhosis Qualified Code(s): K74.69 - Other cirrhosis of liver Code(s): K74.60 - Unspecified cirrhosis of liver (12) Thrombocytopenia: Status: Acute Code(s): D69.6 - Thrombocytopenia, unspecified (13) Hyperlipidemia: Status: Acute Code(s): E78.5 - Hyperlipidemia, unspecified (14) Abdominal aortic aneurysm: Status: Acute Qualifiers: Presence of rupture: without rupture Qualified Code(s): I71.4 - Abdominal aortic aneurysm, without rupture Code(s): I71.4 - Abdominal aortic aneurysm, without rupture (15) Atrial fibrillation: Status: Acute Qualifiers: Atrial fibrillation type: unspecified Qualified Code(s): I48.91 - Unspecified atrial fibrillation Code(s): I48.91 - Unspecified atrial fibrillation (16) Hypertension: Status: Acute Code(s): I10 - Essential (primary) hypertension (17) Nonischemic cardiomyopathy: Status: Acute Code(s): I42.8 - Other cardiomyopathies Additional A&P Information No changes today. Blood pressure and heart rate are stable. Medications appear stable. Activity and then discharge home. Attestations Medical Necessity Statement*: Not applicable Coding Level of Care Code Acute Hand Molder Meat for Chg Fwd History Detailed Exam Detailed Medical Decision Making Moderate Complexity Diagnoses CHF (congestive heart failure) I50.9 Anticoagulation adequate Z79.01 Tobacco abuse Z72.0 History of implantable cardioverter-defibrillator (ICD) placement Z95.810 Hyponatremia E87.1 Respiratory failure J96.90 Hypotension I95.0 Hypotension type: idiopathic hypotension Pneumonia J18.9 Pneumonia type: due to unspecified organism Chest pain R07.1 Chest pain type: chest pain on breathing COPD (chronic obstructive pulmonary disease) J44.1 COPD type: COPD with acute exacerbation Cirrhosis K74.69 Hepatic cirrhosis type: other cirrhosis Thrombocytopenia D69.6 Hyperlipidemia E78.5 Abdominal aortic aneurysm I71.4 Presence of rupture: without rupture Atrial fibrillation I48.91 Atrial fibrillation type: unspecified Hypertension I10 Nonischemic cardiomyopathy I42.8
--- NOTE | 2019-05-29 09:25 | P.DS_ITS ---
Discharge Providers Date of Admission: 05/24/19 11:35 Date of Discharge: 05/29/19 Attending Provider at Admission: Elyse Inman MD Attending Provider at Discharge: Trenton Patel MD Primary Care Provider: DOCTOR NOT ON FILE Diagnoses at Discharge Discharge Diagnosis (1) CHF (congestive heart failure): Status: Acute Problem details: Compensated currently (2) Anticoagulation adequate: Status: Acute Problem details: Eliquis (3) Tobacco abuse: Status: Acute Problem details: Counseled (4) History of implantable cardioverter-defibrillator (ICD) placement: Status: Acute Problem details: 12/20/18 (5) Hyponatremia: Status: Acute Problem details: Significantly improved. To get repeat BMP in 4 days (6) Respiratory failure: Status: Acute (7) Hypotension: Status: Acute Problem details: Resolved. Holding CHAKA inhibitor, Aldactone on discharge but these could be considered again at follow-up Qualifiers: Hypotension type: idiopathic hypotension Qualified Code(s): I95.0 - Idiopathic hypotension (8) Pneumonia: Status: Acute Problem details: To complete 5 more days of cefdinir Qualifiers: Pneumonia type: due to unspecified organism Qualified Code(s): J18.9 - Pneumonia, unspecified organism (9) Chest pain: Status: Acute Problem details: Resolved Qualifiers: Chest pain type: chest pain on breathing Qualified Code(s): R07.1 - Chest pain on breathing (10) COPD (chronic obstructive pulmonary disease): Status: Acute Problem details: Stable Qualifiers: COPD type: COPD with acute exacerbation Qualified Code(s): J44.1 - Chronic obstructive pulmonary disease with (acute) exacerbation (11) Cirrhosis: Status: Acute Qualifiers: Hepatic cirrhosis type: other cirrhosis Qualified Code(s): K74.69 - Other cirrhosis of liver (12) Thrombocytopenia: Status: Acute (13) Hyperlipidemia: Status: Acute (14) Abdominal aortic aneurysm: Status: Acute Problem details: Has follow-up with cardiology Qualifiers: Presence of rupture: without rupture Qualified Code(s): I71.4 - Abdominal aortic aneurysm, without rupture (15) Atrial fibrillation: Status: Acute Problem details: Sotalol discontinued. Placed on amiodarone and metoprolol with adequate rate c ontrol Qualifiers: Atrial fibrillation type: unspecified Qualified Code(s): I48.91 - Un specified atrial fibrillation (16) Hypertension: Status: Acute (17) Nonischemic cardiomyopathy: Status: Acute Problem details: Repeat echocardiogram in the hospital demonstrated improvement of EF to 40% Reason for Visit Reason for Visit: Reason For Visit: Chest pain Hospital Course Hospital Course: Cheko is a 63-year-old white male who presented with chest discomfort. On admission there was concern of pneumonia, hypotension, and possibly decompensated heart failure. Underlying atrial fibrillation was present. There was no concerns with troponin. He was placed on Rocephin and azithromycin. Sotalol was held. Sodium was followed closely and ultimately he received IV fluids initially for hypotension, and then careful doses of diuretics to improve his sodium. Over the course of his hospital stay he gradually improved. He had no further chest discomfort. Atrial fibrillation with rapid ventricular rate occurred and he was placed on an amiodarone drip, converted to p.o. eventually and placed on metoprolol orally as well. This controlled his rhythm nicely. Echocardiogram was also repeated during the hospital stay which demonstrated improvement of his EF up to 40%. CHAKA inhibitor, Aldactone was discontinued during his hospital stay secondary to lower blood pressures but this can be revisited on follow-up. At time of discharge his rate was controlled at approximately 80 resting. He had no chest pain and was requesting discharge home. He will follow-up with his primary care provider in 3 to 5 days with a BMP and cardiology in 2 weeks. He will be discharged on amiodarone 200 mg twice a day for 1 week then with a dose of 200 mg once daily. He will be also discharged on 5 more days of cefdinir. Physical Exam Narrative: EXAM NARRATIVE: General exam no apparent distress Cardiovascular irregular, irregular Lungs clear but with diminished breath sounds at the bases Abdomen is soft positive bowel sounds Extremities no cyanosis clubbing or edema Discharge Data Data Completed and Pending: Completed Studies During Hospitalization Category Date Time Status CT angio chest ab domen pelvis Urgen t Cat Scan 05/24/19 08:55 Completed XR chest 1V etelvina ble [id number] Urgent Exams 05/24/19 08:45 Completed CV echo complete* [id number] Urgent Ultrasound 05/24/19 13:11 Completed Pending at discharge Category Date Time Status Blood Culture Sta t Lab 05/24/19 14:00 Results Labs from last 24 hours 05/29/19 05/29/19 04:22 04:22 WBC 11.0 H RBC 4.06 L Hgb 12.9 Hct 38.9 L MCV 95.8 H MCH 31.8 MCHC 33.2 RDW 12.3 Plt Count 274 MPV 11.5 H Neut % (Auto) 67.4 Lymph % (Auto) 15.8 Peach % (Auto) 13.9 Eos % (Auto) 1.9 Baso % (Auto) 0.5 Neut # (Auto) 7.5 Lymph # (Auto) 1.7 Peach # (Auto) 1.5 H Eos # (Auto) 0.2 Baso # (Auto) 0.1 Nucleated RBC % (a uto) 0 Nucleated RBCs # 0.0 Sodium 132 L Potassium 4.2 Chloride 96 L Carbon Dioxide 23 Anion Gap 17.2 BUN 14 Creatinine 0.8 GFR Calculation 98.0 Glucose 107 H Calcium 9.8 Vitals: Last Vital Signs Temp 98 F 05/29/19 04:00 Pulse 95 05/29/19 09:02 Resp 20 H 05/29/19 09:02 BP 112/87 05/29/19 04:00 Pulse Ox 94 05/29/19 09:02 Discharge Plan Discharge Patient Disposition: Home, Self-Care Condition: Stable Prescriptions: New metoprolol tartrate 25 mg Tablet 12.5 mg PO BID Qty: 30 RF: 0 furosemide 20 mg Tablet 20 mg PO DAILY@0800 Qty: 30 RF: 0 albuterol sulfate 90 mcg/actuation aerosol powdr breath activated 1 inh INHALATION Q6H PRN (Reason: shortness of breath or wheezing) Qty: 1 RF: 0 cefdinir 300 mg capsule 300 mg PO BID 5 Days Qty: 10 RF: 0 amiodarone 200 mg tablet 200 mg PO BID Qty: 36 RF: 0 Continued allopurinol 100 mg tablet 100 mg PO DAILY RF: 0 tamsulosin 0.4 mg capsule 0.4 mg PO DAILY RF: 0 ferrous sulfate 325 mg (65 mg iron) tablet 325 mg PO DAILY RF: 0 aspirin 81 mg tablet,chewable 81 mg PO DAILY RF: 0 zolpidem 5 mg tablet 5 mg PO BEDTIME RF: 0 finasteride 5 mg tablet 5 mg PO DAILY RF: 0 ezetimibe 10 mg tablet 10 mg PO BEDTIME RF: 0 rosuvastatin 40 mg tablet 40 mg PO DAILY RF: 0 Spiriva with HandiHaler 18 mcg capsule, w/inhalation device 1 cap INHALATION DAILY RF: 0 Eliquis 5 mg tablet 5 mg PO BID RF: 0 Discontinued sotalol 80 mg tablet 80 mg PO BID RF: 0 lisinopril 5 mg tablet 5 mg PO BID RF: 0 spironolactone 50 mg tablet 50 mg PO DAILY RF: 0 Discharge Orders: Discharge Order (Routine); Ordered 05/29/19 Ordered By: Trenton Patel Referrals: Ning Nunes NP [Family Provider] - 4-7 days Ronald Cole MD [Physician] - 2 weeks NOT ON FILE,DOCTOR [Primary Care Provider] - Discharge Diet: Cardiac Discharge Activity: Resume usual activity Activity Restrictions/Additional Instructions: Take all medicine as prescribed. 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[employer] Diagnoses CHF (congestive heart failure) I50.9 Anticoagulation adequate Z79.01 Tobacco abuse Z72.0 History of implantable cardioverter-defibrillator (ICD) placement Z95.810 Hyponatremia E87.1 Respiratory failure J96.90 Hypotension I95.0 Hypotension type: idiopathic hypotension Pneumonia J18.9 Pneumonia type: due to unspecified organism Chest pain R07.1 Chest pain type: chest pain on breathing COPD (chronic obstructive pulmonary disease) J44.1 COPD type: COPD with acute exacerbation Cirrhosis K74.69 Hepatic cirrhosis type: other cirrhosis Thrombocytopenia D69.6 Hyperlipidemia E78.5 Abdominal aortic aneurysm I71.4 Presence of rupture: without rupture Atrial fibrillation I48.91 Atrial fibrillation type: unspecified Hypertension I10 Nonischemic cardiomyopathy I42.8
[2019-05-29] MEDS: apixaban 5 mg Tablet PO (09:39)
[2019-05-29] MEDS: amiodarone 200 mg Tablet 400 MG PO (09:39)
[2019-05-29] MEDS: ferrous sulfate EC 325 mg Tablet PO (09:39)
[2019-05-29] MEDS: FUROsemide 20 mg Tablet PO (09:39)
[2019-05-29] MEDS: atorvastatin 40 mg Tablet 80 MG PO (09:39)
[2019-05-29] MEDS: aspirin 81 mg Chew Tablet PO (09:39)
[2019-05-29] MEDS: finasteride 5 mg Tablet PO (09:40)
[2019-05-29] MEDS: metoprolol tartrate 25 mg Tablet 12.5 MG PO (09:40)
== END 2019-05-29 10:55 | disposition home or self-care (01) | DRG 193 ==
LOC: ER 15:28 → ICU 15:40 → CSU 05-28 16:11
PROVIDERS: Admitting Provider Family Medicine; Emergency Provider Family Medicine; Family Provider Nurse Practitioner Family; Visit Provider Internal Medicine
DX: J18.9 Pneumonia, unspecified organism (principal); J96.90 Respiratory failure, unspecified, unspecified whether with hypoxia or hypercapnia; J44.0 Chronic obstructive pulmonary disease with (acute) lower respiratory infection; I42.8 Other cardiomyopathies; I31.3 Pericardial effusion (noninflammatory); J44.1 Chronic obstructive pulmonary disease with (acute) exacerbation; E87.1 Hypo-osmolality and hyponatremia; I71.4 Abdominal aortic aneurysm, without rupture; I10 Essential (primary) hypertension; I48.91 Unspecified atrial fibrillation; Z79.01 Long term (current) use of anticoagulants; Z79.82 Long term (current) use of aspirin; Z79.899 Other long term (current) drug therapy; K74.60 Unspecified cirrhosis of liver; F17.200 Nicotine dependence, unspecified, uncomplicated; I95.0 Idiopathic hypotension; Z95.810 Presence of automatic (implantable) cardiac defibrillator; D69.6 Thrombocytopenia, unspecified; E78.5 Hyperlipidemia, unspecified
CPT/HCPCS: 12345; 36415; 71045; 71275; 74174; 80048; 80053; 83605; 83880; 84484; 85025; 87040; 87804; 93005; 93306; 94640; 96375; 99284; J0282; J0456; J0696; J1940; J2270; J3490; J7030; J7050; J7060; J7611; Q9967

== ENCOUNTER 2019-12-19 08:58 | Outpatient (CLI) | payer MEDICAID, SELFPAY ==
--- NOTE | 2019-12-19 09:30 | USCV_ITS ---
Cheko Weaver Age: 64 Gender: M : 1955 Exam Date: 12/19/2019 09:16 Ordering Phys: Abdifatah Garcia MD (Andy) ([email or web address]) Technologist: Adama Washington Exam Location: [facility] – [place] Indication: AAA HISTORY: Diameter (cm) AP x Transverse x Length Velocity (cm/s) Waveform Prox Aorta: 1.94 x 2.14 x 29.20 Mid Aorta: 4.75 x 4.83 x 14.30 Distal Aorta: 4.43 x 4.67 x 15.20 Right Iliac Prox: 0.89 x 1.70 x 59.90 Left Iliac Prox: 0.89 x 1.57 x 57.80 Stent Prox Landing x x Aneurysmal Sac Max x x Lt Lat Sac Dim Rt Lat Sac Dim Stent Dist Landing x x Right Iliac Stent x x Left Iliac Stent x x Right Renal Art Left Renal Art FINDINGS: Aneurysmal dilatation of the mid and distal abdominal aorta measuring 4.75 x 4.83 proximally and 4.43 x 4.67 distally Mild to moderate diffuse plaques in the abdominal aorta. Study is of suboptimal quality because of poor ultrasonic window. Normal proximal common iliac artery dimensions CONCLUSIONS Abdominal aortic aneurysm involving the mid and distal abdominal aorta, measuring 4.75 x 4.83 and 4.43 x 4.67 respectively Mild to moderate diffuse plaques in the abdominal aorta No evidence of stenosis in the abdominal aorta No evidence of stenosis in the proximal common iliac arteries Dr Tammi William MD [facility] (Electronically Signed) Final Date: 19 December 2019 18:12 S
== END 2019-12-19 08:59 | disposition home or self-care (01) ==
LOC: US 08:59
PROVIDERS: Family Provider Nurse Practitioner Family; PCP Nurse Practitioner Family; Visit Provider Thoracic Surgery (Cardiothoracic Vascular Surgery)
DX: I71.4 Abdominal aortic aneurysm, without rupture (principal)
CPT/HCPCS: 93978

== ENCOUNTER 2020-01-26 08:23 | Outpatient (CLI) | payer MEDICAID, SELFPAY ==
--- NOTE | 2020-01-26 09:00 | CT_ITS ---
WS: [id number] CTA ABDOMEN TECHNIQUE: Noncontrast plus contrast enhanced CTA of the abdominal aorta with coronal and sagittal re formatted images and additional MIP Images. CLINICAL INFORMATION: AAA COMPARISON: CTA May 24, 2019 DLP: 1533.[address] scans at [facility] use at least one of these dose optimization techniques: automat ed exposure control; mA and/or kV adjustment per patient size (includes targeted exams where dose is matched to clinical indication); or iterative reconstruction. FINDINGS: Infrarenal abdominal aortic aneurysm measuring approximately 4.5 x 4.6 x 6.0 cm AP by transverse by c raniocaudal. This compares to previous measuring 4.5 x 4.5 x 6.1 CM. This is not significantly change d with stable peripheral mural thrombus. Diffuse fatty infiltration the liver. Slightly cirrhotic contour to the liver. Tiny gallstone in the gallbladder. Incidental vascular anomaly in the right hepatic lobe. Portal vein and splenic vein are patent. Fatty atrophy of the pancreas. Splenic granulomas. Normal GE junction. Emphysematous changes in the lung bases. Adrenal glands are normal. Normal renal parenchymal enhancement. No hydronephrosis. Celiac and SMA ar e patent. Proximal renal arteries are patent. Densely calcified common iliac arteries bilaterally whi ch are patent. Prostate calcification. Sigmoid diverticulosis. Normal appendix. No periaortic or inguinal lymphadeno jude. No pelvic lymphadenopathy. CT/CT angio abdomen pelvis 16681 IMPRESSION: 1. Infrarenal abdominal aortic aneurysm stable compared to previous today marichuy uring 4.5 x 4.6 x 6.0 CM. Associated peripheral mural thrombus. 2. Tiny gallstone in the gallbladder. 3. Diffuse fatty infiltration of the liver. 4. Normal renal parenchymal enhancement. No hydronephrosis. 5. Celiac and SMA origins are patent. Proximal renal arteries are patent. 6. Sigmoid diverticulosis. 7. No other significant interval changes.
[2020-01-26 09:12] LABS: Blood Urea Nitrogen 14 mg/dL (8-23)
[2020-01-26] MEDS: iohexol 350 mg/mL 100 mL Btl IV (09:44)
== END 2020-01-26 08:24 | disposition home or self-care (01) ==
LOC: RADWPI 08:26
PROVIDERS: Family Provider Nurse Practitioner Family; PCP Nurse Practitioner Family; Visit Provider Thoracic Surgery (Cardiothoracic Vascular Surgery)
DX: I71.4 Abdominal aortic aneurysm, without rupture (principal); K76.89 Other specified diseases of liver; K57.30 Diverticulosis of large intestine without perforation or abscess without bleeding
CPT/HCPCS: 74174; 82565; 84520; Q9967

== ENCOUNTER → 2020-04-13 10:03 | Outpatient (BNVA) | payer MEDICAID, SELFPAY | PROVIDERS: Family Provider Nurse Practitioner Family; PCP Nurse Practitioner Family; Visit Provider Internal Medicine Cardiovascular Disease | DX: E78.2 Mixed hyperlipidemia (principal); I42.8 Other cardiomyopathies; R74.8 Abnormal levels of other serum enzymes; Z51.81 Encounter for therapeutic drug level monitoring; Z79.899 Other long term (current) drug therapy; I71.4 Abdominal aortic aneurysm, without rupture; I48.91 Unspecified atrial fibrillation | CPT/HCPCS: 80053; 80061; 84443 ==

== ENCOUNTER → 2020-04-16 10:03 | Outpatient (BNVA) | payer MEDICAID, SELFPAY | PROVIDERS: Family Provider Nurse Practitioner Family; PCP Nurse Practitioner Family; Visit Provider Internal Medicine Cardiovascular Disease | DX: E78.2 Mixed hyperlipidemia (principal); I42.8 Other cardiomyopathies; R74.8 Abnormal levels of other serum enzymes; Z79.899 Other long term (current) drug therapy; Z51.81 Encounter for therapeutic drug level monitoring; I71.4 Abdominal aortic aneurysm, without rupture; I48.91 Unspecified atrial fibrillation; Z95.810 Presence of automatic (implantable) cardiac defibrillator; I48.92 Unspecified atrial flutter; E87.5 Hyperkalemia | CPT/HCPCS: 83880 ==

== ENCOUNTER 2020-05-07 12:06 | Outpatient (CLI) | payer MEDICAID, SELFPAY ==
--- NOTE | 2020-05-07 12:45 | USCV_ITS ---
Cheko Weaver Age: 64 Gender: M : 1955 Exam Date: 05/07/2020 12:41 Ordering Phys: Rossy Navarro MD ([email or web address]) Technologist: Janneth Man [place] [facility] [place]: BP: 134 / 83 HR: 80 Rhythm: Sinus Technical Quality: Adequate MEASUREMENTS (Male / Female) Normal Values 2D ECHO LV Diastolic Diameter PLAX 5.8 cm 4.2 - 5.9 / 3.9 - 5.3 cm LV Systolic Diameter PLAX 4.2 cm LV Chamber Size 4.0 cm IVS Diastolic Thickness 1.5 cm 0.6 - 1.0 / 0.6 - 0.9 cm IVS Systolic Thickness 1.3 cm LVPW Diastolic Thickness 1.6 cm 0.6 - 1.0 / 0.6 - 0.9 cm LVPW Systolic Thickness 1.6 cm RV Chamber Size 4.4 cm LVOT Diameter 2.0 cm LV Ejection Fraction 2D Teich 53.5 % LV Ejection Fraction MOD 2C 37.0 % LV Ejection Fraction 2C AL 34.5 % LA Diameter 4.8 cm LA Width 3.7 cm LA Height 5.9 cm RA Width 3.9 cm RA Height 4.4 cm Aorta at Sinotubular Diameter 3.0 cm M-MODE LV Diastolic Diameter MM 6.1 cm 4.2 - 5.9 / 3.9 - 5.3 cm LV Systolic Diameter MM 5.3 cm LV Ejection Fraction MM Teich 28.9 % IVS Diastolic Thickness MM 1.0 cm 0.6 - 1.0 / 0.6 - 0.9 cm IVS Systolic Thickness MM 1.6 cm LVPW Diastolic Thickness MM 1.4 cm 0.6 - 1.0 / 0.6 - 0.9 cm LVPW Systolic Thickness MM 1.6 cm RV Diastolic Diameter MM 3.0 cm Aortic Annulus Diameter 4.2 cm LA Ao Ratio MM 1.2 MV E Point Septal Separation 1.9 cm DOPPLER AV Peak Velocity 86.0 cm/s LVOT Peak Velocity 68.0 cm/s AV Area Cont Eq vti 2.3 cm squared AV Area Cont Eq pk 2.6 cm squared MV Area PHT 5.9 cm squared Mitral E to A Ratio 2.0 MV E' Velocity 42.0 cm/s Mitral E to MV E' Ratio 11.9 Mitral E to LV E' Lateral Ratio 12.9 Mitral E to LV E' Septal Ratio 11.0 TR Peak Velocity 181.7 cm/s TR Peak Gradient 13.2 mmHg TR Mean Velocity 141.1 cm/s TR Mean Gradient 8.6 mmHg TR Velocity Time Integral 52.1 cm TV Peak E Velocity 66.0 cm/s Right Atrial Pressure 3.0 mmHg Pulmonary Artery Systolic Pressu 16.2 mmHg PV Peak Velocity 35.0 cm/s RV Acceleration Time 0.1 s RV Ejection Time 0.3 s RV AcT/ET 0.4 FINDINGS Left Ventricle Moderately increased left ventricular cavity size. Moderately decreased left ventricular systolic function. Left ventricular ejection fraction is estimated at 30 %. Moderate global hyponiesis. Rhythm precludes evaluation of diastolic function. Abnormal septal motion consistent with conduction abnormality. Right Ventricle Mildly increased right ventricular size. Midly decreased right ventricular systolic function. Right ventricular systolic pressure 21 mmHg. Defibrillator wire visualized in the right ventricle. Right Atrium Mildly increased right atrial size. Right atrial pressure estimated at 3 mmHg. Left Atrium Moderately increased left atrial size. Mitral Valve Structurally normal mitral valve. No mitral valve stenosis. Mild mitral valve regurgitation. Aortic Valve Structurally normal trileaflet aortic valve. No aortic valve stenosis. No aortic valve regurgitation. Tricuspid Valve Structurally normal tricuspid valve. Mild tricuspid valve regurgitation. Pulmonic Valve Pericardium No pericardial effusion. Aorta Upper normal sized aortic root. Normal-sized inferior vena cava. CONCLUSIONS 1. Moderately increased left ventricular cavity size. Moderately decreased left ventricular systolic function. Left ventricular ejection fraction is estimated at 30 %. Moderate global hyponiesis. 2. Mildly increased right ventricular size. Mildly decreased right ventricular systolic function. 3. Mild mitral and tricuspid valve regurgitation. 4. Moderately increased left atrial size. 5. When compared to previous study dated 05/24/2019, left ventricular systolic function seems to have decreased from 40% to 30% now. Rossy Navarro MD (Electronically Signed) Final Date: 12 May 2020 14:08 S
== END 2020-05-07 12:07 | disposition home or self-care (01) ==
LOC: US 12:08
PROVIDERS: PCP Nurse Practitioner Family; Visit Provider Internal Medicine Cardiovascular Disease
DX: I48.92 Unspecified atrial flutter (principal); I08.1 Rheumatic disorders of both mitral and tricuspid valves
CPT/HCPCS: 93306

== ENCOUNTER 2020-05-15 08:43 | Outpatient (CLI) | payer MEDICAID, SELFPAY ==
--- NOTE | 2020-05-15 08:51 | US_ITS ---
WS: [id number] RIGHT UPPER QUADRANT ULTRASOUND HISTORY: HEPATIC FIBROSIS COMPARISON: None available. Liver: 19.5 cm in length. Liver is moderately enlarged. Mild coarsened echotexture with a few granulo green. No mass or bile duct dilatation. Gallbladder: Cholelithiasis without acute cholecystitis. Normal size gallbladder. Wall is top normal size at 3 mm. CBD: 0.3 cm Pancreas: Head and tail of the pancreas are poorly visualized. Right kidney: 10.8 cm in length. Normal size and echogenicity. No hydronephrosis or mass. Aorta and IVC: Patient has a known aortic aneurysm. Maximum diameter noted today of 4.6 cm. No ascites. US/US abdomen limited [id number] IMPRESSION: 1. Mild hepatomegaly with changes of mild hepatic fibrosis. No bile duct dilat ation. 2. Cholelithiasis without acute cholecystitis.
== END 2020-05-15 08:44 | disposition home or self-care (01) ==
LOC: RAD 08:48
PROVIDERS: PCP Nurse Practitioner Family; Visit Provider Internal Medicine Gastroenterology
DX: K74.00 Hepatic fibrosis, unspecified (principal); R16.0 Hepatomegaly, not elsewhere classified; K80.20 Calculus of gallbladder without cholecystitis without obstruction
CPT/HCPCS: 76705

== ENCOUNTER → 2020-10-12 09:17 | Outpatient (BNVA) | payer MEDICAID, SELFPAY | PROVIDERS: PCP Nurse Practitioner Family; Visit Provider Surgery | DX: Z01.812 Encounter for preprocedural laboratory examination (principal); Z20.822 Contact with and (suspected) exposure to COVID-19 | CPT/HCPCS: 87635 ==

== ENCOUNTER 2020-10-18 09:02 | Day surgery (SDC) | payer MEDICAID, SELFPAY ==
--- NOTE | 2020-10-18 09:09 | ANES.PREANE2 ---
Pre-Anesthetic Assessment Pre-Anesthetic Assessment: Height/Weight: Height 1.7 m Weight 98.43 kg Preop Diagnosis: polyps Proposed Procedure: Operation Date: 10/18/20 10:30 Proposed Procedures p Colonoscopy 87344 K63.5(Not Applicable) - Chilango Suarez MD Familial anesthetic complications: None Was Beta Vanna taken within 24 hours: Yes Was Clonidine taken within 24 hours: N/A Last intake: > 8 hrs Social: Social History: Tobacco and No alcohol Exam: Pre-Anes Outpt Exam: alert, oriented x 3, clear to auscultation bilaterally and regular rate & rhythm Airway: Cervical ROM: WNL MP: 2 Dentition: Other (1 tooth) Pulmonary: Pulmonary: COPD CV/HEM: CV/HEM: Afib (eliquis on ), HTN and CT Comments: ICD Echo Conclusion Mar 2020 1. Moderately increased left ventricular cavity size. Moderately decreased left ventricular systolic function. Left ventricular ejection fraction is estimated at 30 %. Moderate global hyponiesis. 2. Mildly increased right ventricular size. Mildly decreased right ventricular systolic function. 3. Mild mitral and tricuspid valve regurgitation. 4. Moderately increased left atrial size. 5. When compared to previous study dated 05/24/2019, left ventricular systolic function seems to have decreased from 40% to 30% now. Hepatic: Hepatic: Cirrohsis Metabolic: Metabolic: Hyperlipidemia Anesthetic Plan: ASA status: 4 Anesthesia: MAC Risk of > 500 ml blood loss (7ml/kg in children): No PFSH Anesthesia PFSH: Medical History Abdominal aortic aneurysm Atrial fibrillation Sotalol discontinued. Placed on amiodarone and metoprolol with adequate rate control CHF (congestive heart failure) Compensated currently Cirrhosis Colon polyps COPD (chronic obstructive pulmonary disease) Stable Hyperlipidemia Hypertension Nonischemic cardiomyopathy Repeat echocardiogram in the hospital demonstrated improvement of EF to 40% Thrombocytopenia Surgical History H/O hernia repair L inguinal hernia repair History of implantable cardioverter-defibrillator (ICD) placement 12/20/18 History of orthopedic surgery Repair heel fracture Family History Mother Dementia Father CAD (coronary artery disease) Social History Smoking and tobacco status: current every day smoker Alcohol intake: current Alcohol intake frequency: other Data Anesthesia Cardiac Studies: No Data to Display
[2020-10-18 09:37] VITALS: BP 111/85; PULSE 105; RESP 18; TEMP 36.6; O2SAT 95
[2020-10-18] MEDS: sodium chloride 0.9% 1,000 ML 30 ML IV (09:47)
--- NOTE | 2020-10-18 11:26 | W.PM.OPSUD ---
Surgery/Procedure H&P Update DATE OF PROCEDURE: October 18, 2020 DATE H&P PERFORMED: 09/21/20 H&P UPDATE INFORMATION: I have reviewed H&P completed within last 30 days, I have examined patient prior to procedure and No changes to prior documentation PREOP DIAGNOSIS: screening colonoscopy PLANNED PROCEDURE: Operation Date: 10/18/20 10:30 Proposed Procedures p Colonoscopy 36327 K63.5(Not Applicable) - Chilango Suarez MD
[2020-10-18 12:05] VITALS: BP 96/70; PULSE 86; RESP 24; TEMP 36.4; O2SAT 92
[2020-10-18 12:26] VITALS: BP 98/67; PULSE 87; RESP 20; O2SAT 93
--- NOTE | 2020-10-18 15:17 | ANE.PACU2 ---
Inpatient post-anesthesia follow up: Airway intact: Yes Vital signs: Temperature 97.5 F Pulse Rate 87 Respiratory Rate 20 Blood Pressure 98/67 Pulse Oximetry 93 Oxygen Delivery Me thod Room Air Oxygen Flow Rate Fraction of Inspir ed Oxygen Hydration adequate: Yes Nausea and vomiting: No Pain level: 1 Mental status: Baseline
== END 2020-10-18 12:40 | disposition home or self-care (01) ==
PROVIDERS: PCP Nurse Practitioner Family; Visit Provider Surgery
PROC: 0DJD8ZZ Inspection of Lower Intestinal Tract, Via Natural or Artificial Opening Endoscopic (ICD-10-PCS; CPT 45378; principal; 2020-10-18 10:30)
DX: Z12.11 Encounter for screening for malignant neoplasm of colon (principal); D12.2 Benign neoplasm of ascending colon; D12.4 Benign neoplasm of descending colon; K57.30 Diverticulosis of large intestine without perforation or abscess without bleeding; K64.8 Other hemorrhoids; I48.91 Unspecified atrial fibrillation; Z79.01 Long term (current) use of anticoagulants; I25.2 Old myocardial infarction; E78.5 Hyperlipidemia, unspecified; I11.0 Hypertensive heart disease with heart failure; I50.9 Heart failure, unspecified; J44.9 Chronic obstructive pulmonary disease, unspecified; F17.210 Nicotine dependence, cigarettes, uncomplicated
CPT/HCPCS: 45380; 45385; 88305; 96360; 96361; J2370; J2704; J7030

== ENCOUNTER 2021-03-27 16:56 | Inpatient (IN) | payer MEDICAID, SELFPAY ==
--- NOTE | 2021-03-27 16:57 | XRR_ITS ---
PROCEDURE INFORMATION: Exam: XR Chest Exam date and time: 03/27/2021 4:57 PM Age: 65 years old Clinical indication: Chest wall pain; Additional info: Cp TECHNIQUE: Imaging protocol: XR of the chest. Views: 1 view. COMPARISON: CR XR chest 1V portable [id number] 05/24/2019 8:56 AM FINDINGS: Tubes, catheters and devices: Stable intact multi lead left subclavian pacemaker. Lungs: Vascular congestion. Diffuse interstitial opacities in both lungs appear slightly improved. Improved ventilation in both lungs. No consolidation. Pleural spaces: Unremarkable. No pleural effusion. No pneumothorax. Heart/Mediastinum: Mild cardiomegaly. Bones/joints: Unremarkable. XR/XR chest 1V portable [id number] IMPRESSION: 1. Interstitial opacities in both lungs appear slightly improved, allowing for differences in inspiration. This could represent improved pulmonary edema on a background of interstitial fibrosis. Radiation Dose CTDIVOL = (mGy): DLP = (mGy-cm)
--- NOTE | 2021-03-27 16:58 | ECG_ITS ---
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 Measurements Intervals [place] Rate: 87 P: SC: QRS: -59 QRSD: 110 T: 131 QT: 396 QTc: 477 Interpretive Statements ATRIAL FIBRILLATION LOW QRS VOLTAGE IN PRECORDIAL LEADS [QRS DEFLECTION < 1.0 mV IN CHEST LEADS] ANTERIOR MYOCARDIAL INFARCTION , PROBABLY OLD [40+ ms Q WAVE AND/OR ST/T ABNORMALITY IN V3/V4] INFERIOR MYOCARDIAL INFARCTION , PROBABLY OLD [40+ ms Q WAVE AND/OR ST/T ABNORMALITY IN II/aVF] Compared to ECG 05/24/2019 21:33:15 Low QRS voltage now present Sinus rhythm no longer present First degree AV block no longer present Left anterior fascicular block no longer present Myocardial infarct finding still present Electronically Signed On 03-27-2021 22:46:40 [employer]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 [email or web address]
[2021-03-27 17:00] VITALS: BP 105/72; PULSE 92; RESP 20; TEMP 36.6; O2SAT 93; BMI 42.3
[2021-03-27 17:37] VITALS: BP 182/158; PULSE 95; O2SAT 91
[2021-03-27 17:46] LABS: Basophils % 0.3 %; Eosinophils % 0.2 %; Hematocrit 43.9 % (42.0-52.0); Lymphocytes # 1.4 10^3/uL (0.8-4.8); Lymphocytes % 13.3 %; Mean Corpuscular HGB Conc 31.9 g/dL (30.0-36.0); Mean Corpuscular Hemoglobin 30.4 pg (28.0-34.0); Mean Corpuscular Volume 95.2 fl (80-94); Mean Platelet Volume 10.5 fL (7.4-10.4); Monocytes # 1.2 10^3/uL (0.2-0.9); Monocytes % 11.1 %; Neutrophils # 7.99 10^3/uL (1.8-7.7); Neutrophils % 74.6 %; Nucleated Red Blood Cells # 0.4 /100WBC; Nucleated Red Blood Cells % 3.4 %; Platelet Count 220 10^3/cmm (130-400); Red Blood Count 4.61 10^6/uL (4.1-5.3); Red Cell Distribution Width 16.7 % (12.1-15.1); White Blood Count 10.7 10^3/uL (4.0-10.0)
[2021-03-27 18:45] VITALS: PULSE 95; RESP 20; O2SAT 96
[2021-03-27 18:49] LABS: Troponin(5th) Baseline 19 ng/L (0-15)
[2021-03-27] MEDS: ipratropium-albuterol 3 mL Neb INHALATION ×3 (18:53→18:56)
[2021-03-27 18:56] LABS: NT Pro B Type Natriuretic Pept 5986 pg/mL (0-125)
--- NOTE | 2021-03-27 18:56 | W.ED.GENADLT ---
HPI - General Adult General: Chief complaint: Arrhythmia/Palpitations Stated complaint: RAPID HEART RATE/BACK PAIN/LIGHT HEADED Time Seen by Provider: 03/27/21 18:21 History of Present Illness: HPI narrative: Patient is a 65-year-old male with history of CHF status post AICD, COPD, hypertension, CAD presenting to the emergency room with complaints of 1 week of worsening shortness of breath and experiencing 2 shocks at 4 PM. Patient tells me that he felt like his AICD device fire earlier today around 4. Prior to the firing, he felt very lightheaded and almost passed out. Throughout the week, patient has noticed abdominal swelling, leg swelling has been worsening despite taking his furosemide medication. Patient denies any fever or chills, but has report persistence of cough is getting worse for last 3 weeks. Patient has taken breathing treatments at home without improvement in symptoms. Denies any nausea/vomiting, diaphoresis, abdominal pain, diarrhea, melena or hematochezia. Has had one episode of chest pain around 4pm. Onset: 1 week ago Duration: 1 week Location:home Severity: moderate Review of Systems Narrative: Constitutional: No fever, no chills. HEENT: No vision changes CV: +chest pain, no palpitations PULM: no cough, +dyspnea. GI: No abdominal pain, no N/V/D. : No dysuria MSKEL: No muscle pain SKIN: No new rashes, no lesions. NEURO: No headache, no focal weakness. HEME: No visible bruises PSYCH: Normal mood PFSH ED PFSH: Medical History Abdominal aortic aneurysm Atrial fibrillation Sotalol discontinued. Placed on amiodarone and metoprolol with adequate rate control CHF (congestive heart failure) Compensated currently Cirrhosis Colon polyps COPD (chronic obstructive pulmonary disease) Stable Hyperlipidemia Hypertension Nonischemic cardiomyopathy Repeat echocardiogram in the hospital demonstrated improvement of EF to 40% Thrombocytopenia Surgical History H/O hernia repair L inguinal hernia repair History of implantable cardioverter-defibrillator (ICD) placement 12/20/18 History of orthopedic surgery Repair heel fracture Status post colonoscopy (10/18/20) Family History Mother Dementia Father CAD (coronary artery disease) Social History Smoking and tobacco status: current every day smoker Alcohol intake: current Alcohol intake frequency: other Physical Exam Narrative: EXAM NARRATIVE: Head: Atraumatic Eyes: PERRL, conjunctiva without injection ENT: Mucous membrane moist NECK: Supple, ROM intact LUNGS: +Coarse breath sounds with crackles and occasional wheezes CV: Irregularly irregular rhythm ABDOMEN: Soft, +abdominal distension, no focal TTP. NO guarding rebound, guarding, rigidity. No CVA tenderness to percussion. Neg Araujo/Neg McBurney's point tenderness, no suprabupic tenderness to palpation. EXTREMITY: Normal ROM, 3+ edema in the lower extremities SKIN: No rash or erythema NEURO: Awake and alert, no focal motor deficits PSYCH: Normal mood and affect Course Vital Signs: Vital signs: Vital Signs Temperature 97.8 F 03/30/21 14:51 Pulse Rate 85 03/30/21 14:51 Respiratory Rate 18 03/30/21 14:51 Blood Pressure 95/67 03/30/21 14:51 Pulse Oximetry 94 03/30/21 14:51 MDM - General Adult MDM Narrative: Medical decision making narrative: 65-year-old male with a history of CHF, AICD placement, CAD who presents emergency room with worsening dyspnea and volume overload x1 week. On exam, patient has findings consistent with volume overload. In addition, patient has mild wheezing. Findings suggestive of CHF versus COPD exacerbation. Workup: CBC, BMP, Troponin x 3, BNP, XR chest Intervention: duoneb, prednisone, lasix, ASA EKG showing afib at HT of 87. LBBB. No ST elevations/depressions to suggest coronary occlusion. Normal NM, QRS, QT intervals. Does not meet sgarbossa criteria Patient has a [employer] AICD device that was interrogated. However there is no recorded shocks for from earlier today. Assessment, patient is symptomatically improved. He is on 2 L nasal cannula for oxygen support for comfort. Given new onset of volume overload and significant wheezing, findings suggestive of CHF and COPD exacerbation. Patient admitted to hospital for diuresis and observation. Disposition: Admission Lab Data: Labs: Lab Results 03/27/21 03/27/21 03/27/21 17:35 17:35 17:35 WBC 10.7 10^3/uL H 10 ^3/uL (4.0-10.0) RBC 4.61 10^6/uL 10^6 /uL (4.1-5.3) Hgb 14.0 g/dL g/dL (11.7-16.6) Hct 43.9 % % (42.0-52.0) MCV 95.2 fl H fl (80-94) MCH 30.4 pg pg (28.0-34.0) MCHC 31.9 g/dL g/dL (30.0-36.0) RDW 16.7 % H % (12.1-15.1) Plt Count 220 10^3/cmm 10^3 /cmm (130-400) MPV 10.5 fL H fL (7.4-10.4) Neut % (Auto) 74.6 % % Lymph % (Auto) 13.3 % % [place] % (Auto) 11.1 % % Eos % (Auto) 0.2 % % Baso % (Auto) 0.3 % % Neut # (Auto) 7.99 10^3/uL H 10 ^3/uL (1.8-7.7) Lymph # (Auto) 1.4 10^3/uL 10^3/ uL (0.8-4.8) [place] # (Auto) 1.2 10^3/uL H 10^ 3/uL (0.2-0.9) Eos # (Auto) 0.0 10^3/uL 10^3/ uL (0.0-0.8) Baso # (Auto) 0.0 10^3/uL 10^3/ uL (0.0-0.1) Nucleated RBC % (a uto) 3.4 % % Nucleated RBCs # 0.4 /100WBC /100W BC Specimen Type Sample Site ABG pH ABG pCO2 ABG pO2 ABG HCO3 ABG O2 Saturation ABG Base Excess Jose Test A-a O2 Gradient Hematocrit Hgb O2 Saturation Carboxyhemoglobin Methemoglobin Total Hemoglobin Ionized Calcium O2 Delivery Device O2 Liters/Min Mine Motor Operator ID Sodium 128 mmol/L L mmol /L (136-145) Potassium 4.9 mmol/L mmol/L (3.5-5.1) Chloride 94 mmol/L L mmol/ L (98-107) Carbon Dioxide 20 mmol/L L mmol/ L (22-29) Anion Gap 18.9 (5-19) BUN 23 mg/dL mg/dL (8-23) Creatinine 1.2 mg/dL mg/dL (0.7-1.2) GFR Calculation 61.0 mL/min L mL/ min (90-130) Glucose 94 mg/dL mg/dL (65-115) Calculated Osmolal ity 269 mOsm/kg L mOs m/kg (285-295) Calcium 8.4 mg/dL L mg/dL (8.5-10.5) Total Bilirubin 0.8 mg/dL mg/dL (0.15-1.2) AST 182 U/L H U/L (0-40) ALT 341 U/L H U/L (0-41) Alkaline Phosphata se 147 IU/L H IU/L (40-130) Troponin T Baselin e 19 ng/L H ng/L (0-15) Troponin T 120 Min alutiiq Delta Troponin T Troponin T Hi Sens 6Hr Troponin T Hi Sens 6Hr Delta NT-Pro-B Natriuret Pep Total Protein 6.3 g/dL L g/dL (6.6-8.7) Albumin 3.6 g/dL g/dL (3.5-5.2) Globulin 2.7 g/dL g/dL (1.3-4.6) Nasal/Oral COVID-1 9 PCR Hepatitis A IgM Ab Hep Bs Antigen Hep Bs Antibody Hep B Core Total A b Hepatitis C Antibo dy SARS-CoV-2 Ag (Rap id) 03/27/21 03/27/21 03/27/21 17:35 17:35 18:40 WBC RBC Hgb Hct MCV MCH MCHC RDW Plt Count MPV Neut % (Auto) Lymph % (Auto) [place] % (Auto) Eos % (Auto) Baso % (Auto) Neut # (Auto) Lymph # (Auto) [place] # (Auto) Eos # (Auto) Baso # (Auto) Nucleated RBC % (a uto) Nucleated RBCs # Specimen Type Sample Site ABG pH ABG pCO2 ABG pO2 ABG HCO3 ABG O2 Saturation ABG Base Excess Jose Test A-a O2 Gradient Hematocrit Hgb O2 Saturation Carboxyhemoglobin Methemoglobin Total Hemoglobin Ionized Calcium O2 Delivery Device O2 Liters/Min Mine Motor Operator ID Sodium Potassium Chloride Carbon Dioxide Anion Gap BUN Creatinine GFR Calculation Glucose Calculated Osmolal ity Calcium Total Bilirubin AST ALT Alkaline Phosphata se Troponin T Baselin e Troponin T 120 Min alutiiq Delta Troponin T Troponin T Hi Sens 6Hr Troponin T Hi Sens 6Hr Delta NT-Pro-B Natriuret Pep 5986 pg/mL H pg/m L (0-125) Total Protein Albumin Globulin Nasal/Oral COVID-1 9 PCR Not detected Hepatitis A IgM Ab Non-reactive (Nonreactive) Hep Bs Antigen Non-reactive (Nonreactive) Hep Bs Antibody 61.2 (11.5-1000) Hep B Core Total A b Non-reactive (Nonreactive) Hepatitis C Antibo dy Non-reactive (Nonreactive) SARS-CoV-2 Ag (Rap id) 03/27/21 03/27/21 03/27/21 18:40 19:47 23:10 WBC RBC Hgb Hct MCV MCH MCHC RDW Plt Count MPV Neut % (Auto) Lymph % (Auto) [place] % (Auto) Eos % (Auto) Baso % (Auto) Neut # (Auto) Lymph # (Auto) [place] # (Auto) Eos # (Auto) Baso # (Auto) Nucleated RBC % (a uto) Nucleated RBCs # Specimen Type Sample Site ABG pH ABG pCO2 ABG pO2 ABG HCO3 ABG O2 Saturation ABG Base Excess Jose Test A-a O2 Gradient Hematocrit Hgb O2 Saturation Carboxyhemoglobin Methemoglobin Total Hemoglobin Ionized Calcium O2 Delivery Device O2 Liters/Min Mine Motor Operator ID Sodium Potassium Chloride Carbon Dioxide Anion Gap BUN Creatinine GFR Calculation Glucose Calculated Osmolal ity Calcium Total Bilirubin AST ALT Alkaline Phosphata se Troponin T Baselin e Troponin T 120 Min alutiiq 19.26 ng/L H ng/L (0-15) Delta Troponin T 0.26 ABS# ABS# (0-10) Troponin T Hi Sens 6Hr 19.43 ng/L H ng/L (0-15) Troponin T Hi Sens 6Hr Delta 0.43 ng/L ng/L (0-12) NT-Pro-B Natriuret Pep Total Protein Albumin Globulin Nasal/Oral COVID-1 9 PCR Hepatitis A IgM Ab Hep Bs Antigen Hep Bs Antibody Hep B Core Total A b Hepatitis C Antibo dy SARS-CoV-2 Ag (Rap id) Negative (Negative) 03/28/21 03/28/21 00:59 02:25 WBC RBC Hgb Hct MCV MCH MCHC RDW Plt Count MPV Neut % (Auto) Lymph % (Auto) [place] % (Auto) Eos % (Auto) Baso % (Auto) Neut # (Auto) Lymph # (Auto) [place] # (Auto) Eos # (Auto) Baso # (Auto) Nucleated RBC % (a uto) Nucleated RBCs # Specimen Type Arterial Sample Site Radial, right ABG pH 7.38 (7.35-7.45) (7.35-7.45) ABG pCO2 mmHg mmHg 35.6 mmHg mmHg (35-45) (35-45) ABG pO2 mmHg mmHg 60.4 mmHg L mmHg (80.0-100.0) (80.0-100.0) ABG HCO3 mmol/L mmol/L 21.2 mmol/L L mmo l/L (22-26) (22-26) ABG O2 Saturation 90.1 ABG Base Excess mmol/L mmol/L -3.2 mmol/L L mmo l/L (-2.0-2.0) (-2.0-2.0) Jose Test [employer] Salesperson Pos A-a O2 Gradient 6.1 mmHg mmHg (5-10) Hematocrit % % 46.7 % % (42-52) (42-52) Hgb O2 Saturation 87.5 % L % (95-100) Carboxyhemoglobin 2.3 %THgb %THgb (0.4-20.1) Methemoglobin 0.6 % % (0.4-1.5) Total Hemoglobin 15.2 g/dL g/dL (14-18) Ionized Calcium 1.2 mmol/L mmol/L (1.1-1.4) O2 Delivery Device Nc O2 Liters/Min % % 3.0 % % Mine Motor Operator ID [id number] Sodium 129.0 mmol/L L mm ol/L (131-143) Potassium 5.0 mmol/L mmol/L (3.5-5.0) Chloride Carbon Dioxide Anion Gap BUN Creatinine GFR Calculation Glucose 149.0 mg/dL H mg/ dL (70-115) Calculated Osmolal ity Calcium Total Bilirubin AST ALT Alkaline Phosphata se Troponin T Baselin e Troponin T 120 Min alutiiq Delta Troponin T Troponin T Hi Sens 6Hr Troponin T Hi Sens 6Hr Delta NT-Pro-B Natriuret Pep Total Protein Albumin Globulin Nasal/Oral COVID-1 9 PCR Hepatitis A IgM Ab Hep Bs Antigen Hep Bs Antibody Hep B Core Total A b Hepatitis C Antibo dy SARS-CoV-2 Ag (Rap id) Imaging Data^: Other Imaging: Radiologist's impression: [id number] [place], [place] [address]PCrc ReportSigned Patient: Cheko Weaver #: [id number]: 1955cct#:[id number]/Sex: 65 / MADM Date: 03/27/21Loc: ERRoom/Bed:Attending Dr: Ordering Provider/Ordering MD: Pepper Calderon MD Date of Service: 03/27/21 Procedure(s): XR chest 1V portable [id number] Accession Number(s): [id number] Report Number: [id number] PROCEDURE INFORMATION: Exam: XR Chest Exam date and time: 03/27/2021 4:57 PM Age: 65 years old Clinical indication: Chest wall pain; Additional info: Cp TECHNIQUE: Imaging protocol: XR of the chest. Views: 1 view. COMPARISON: CR XR chest 1V portable [id number] 05/24/2019 8:56 AM FINDINGS: Tubes, catheters and devices: Stable intact multi lead left subclavian pacemaker. Lungs: Vascular congestion. Diffuse interstitial opacities in both lungs appear slightly improved. Improved ventilation in both lungs. No consolidation. Pleural spaces: Unremarkable. No pleural effusion. No pneumothorax. Heart/Mediastinum: Mild cardiomegaly. Bones/joints: Unremarkable. XR/XR chest 1V portable [id number] IMPRESSION: 1. Interstitial opacities in both lungs appear slightly improved, allowing for differences in inspiration. This could represent improved pulmonary edema on a background of interstitial fibrosis. Radiation Dose CTDIVOL = (mGy): DLP = (mGy-cm) Dictated By:Darshan Khan By:Darshan Khan Date/Time:03/27/21 1752DD/ 56 Discharge Plan Discharge Patient Disposition: Admitted As Inpatient Admit Provider: Soila Irene Clinical Impression: Volume overload, COPD exacerbation CHF exacerbation Qualifiers: Heart failure type: combined systolic and diastolic Qualified Code(s): I50.43 - Acute on chronic combined systolic (congestive) and diastolic (congestive) heart failure Condition: Stable Discharge Diet: Cardiac Discharge Activity: Cpap/Bipap as instructed Coding Level of Care Code ED Electrical Systems Designer for [facility]
--- NOTE | 2021-03-27 18:58 | ECG_ITS ---
[facility] Test Date: 2021-03-27 Pat Name: Cheko Weaver Department: Room: Gender: Male Managed Care Nurse: : 1955 Requested By: Pepper Calderon Order Number: [id number] Keny MD: Tammi William M.D. Measurements Intervals [place] Rate: 92 P: WI: QRS: -55 QRSD: 111 T: 134 QT: 380 QTc: 470 Interpretive Statements ATRIAL FIBRILLATION WITH ABERRANT CONDUCTION OR VENTRICULAR PREMATURE COMPLEXES LOW QRS VOLTAGE IN PRECORDIAL LEADS [QRS DEFLECTION < 1.0 mV IN CHEST LEADS] ANTERIOR MYOCARDIAL INFARCTION , PROBABLY OLD [40+ ms Q WAVE AND/OR ST/T ABNORMALITY IN V3/V4] INFERIOR MYOCARDIAL INFARCTION , PROBABLY OLD [40+ ms Q WAVE AND/OR ST/T ABNORMALITY IN II/aVF] Compared to ECG 03/27/2021 17:34:21 Ventricular premature complex(es) now present Aberrant conduction of supraventricular beat(s) now present Myocardial infarct finding still present Electronically Signed On 03-27-2021 22:54:04 PROTECTOR PLATE ATTACHER by Tammi William M.D. [id number]
[2021-03-27] MEDS: aspirin 325 mg Tablet PO (19:00)
[2021-03-27 19:17] LABS: SARS Covid-2 Antigen Negative (Negative)
[2021-03-27 19:20] LABS: Alanine Aminotransferase 341 U/L (0-41); Albumin Level 3.6 g/dL (3.5-5.2); Alkaline Phosphatase 147 IU/L (40-130); Aspartate Amino Transferase 182 U/L (0-40); Blood Urea Nitrogen 23 mg/dL (8-23); Calcium 8.4 mg/dL (8.5-10.5); Carbon Dioxide 20 mmol/L (22-29); Chloride 94 mmol/L (98-107); Globulin 2.7 g/dL (1.3-4.6); Glucose 94 mg/dL (65-115); Osmolality Calculated 269 mOsm/kg (285-295); Sodium 128 mmol/L (136-145); Total Bilirubin 0.8 mg/dL (0.15-1.2); Total Protein 6.3 g/dL (6.6-8.7)
[2021-03-27 19:22] LABS: Anion Gap 18.9 (5-19); Potassium 4.9 mmol/L (3.5-5.1)
[2021-03-27] MEDS: FUROsemide 10 mg/mL SDV 4mL 40 MG IVP (19:34)
[2021-03-27] MEDS: predniSONE 20 mg Tablet 60 MG PO (19:35)
[2021-03-27 19:37] VITALS: BP 91/75; PULSE 92; RESP 21; O2SAT 91
[2021-03-27 20:02] VITALS: PULSE 138; RESP 18; O2SAT 89
[2021-03-27 20:25] LABS: Troponin 5 2HR 19.26 ng/L (0-15); Troponin 5 2HR Delta 0.26 ABS# (0-10)
--- NOTE | 2021-03-27 22:58 | ECG_ITS ---
ERROR Please disregard all previous reports and links for this order result. ERROR [email or web address]
[2021-03-27] MEDS: lidocaine 5% Patch 1 PATCH TOPICAL (23:09)
[2021-03-27 23:41] VITALS: BP 91/59; PULSE 100; RESP 17; O2SAT 95
[2021-03-27 23:45] LABS: Troponin 5 6HR 19.43 ng/L (0-15); Troponin 5 6HR Delta 0.43 ng/L (0-12)
[2021-03-28] VITALS (27 sets, daily range): BP systolic 69–146; BP diastolic 47–94; PULSE 72–103; RESP 18–34; TEMP 35.7–36.1; O2SAT 3–97
[2021-03-28] MEDS: bumetanide 0.25 mg/mL SDV 4 mL 1 MG IVP (00:13)
--- NOTE | 2021-03-28 01:01 | USCV_ITS ---
Cheko Weaver Age: 65 Gender: M : 1955 Exam Date: 03/28/2021 06:55 Ordering Phys: Soila Irene MD Technologist: ELIZABETH Exam Location: [facility] [place] Indication: WORSENIGN CHF BP: 102 / 76 HR: 97 Rhythm: Sinus Technical Quality: Technically difficult study MEASUREMENTS (Male / Female) Normal Values 2D ECHO LV Diastolic Diameter PLAX 5.7 cm 4.2 - 5.9 / 3.9 - 5.3 cm LV Systolic Diameter PLAX 5.1 cm IVS Diastolic Thickness 1.2 cm 0.6 - 1.0 / 0.6 - 0.9 cm IVS Systolic Thickness 1.1 cm LVPW Diastolic Thickness 1.0 cm 0.6 - 1.0 / 0.6 - 0.9 cm LVPW Systolic Thickness 1.1 cm RV Chamber Size 4.3 cm LVOT Diameter 2.0 cm LV Ejection Fraction 2D Teich 23.9 % LV Ejection Fraction MOD 2C 22.4 % LV Ejection Fraction 2C AL 23.1 % LA Diameter 3.8 cm LA Width 3.7 cm LA Height 5.3 cm RA Width 5.0 cm RA Height 4.4 cm Aorta at Sinotubular Diameter 3.1 cm DOPPLER AV Peak Velocity 64.0 cm/s LVOT Peak Velocity 68.0 cm/s AV Area Cont Eq vti 3.7 cm squared AV Area Cont Eq pk 3.4 cm squared TR Peak Velocity 212.0 cm/s TR Peak Gradient 18.0 mmHg Right Atrial Pressure 8.0 mmHg Pulmonary Artery Systolic Pressu 26.0 mmHg RV Acceleration Time 0.1 s RV Ejection Time 0.3 s RV AcT/ET 0.4 FINDINGS Left Ventricle Moderately increased left ventricular cavity size. Severely decreased left ventricular systolic function. Left ventricular ejection fraction is estimated at 20-25%. Global hypokinesis. The study is inadequate to estimate regional variation. Abnormal diastolic function. Abnormal septal motion. Right Ventricle Moderately increased right ventricular size. Moderately decreased right ventricular systolic function. ICD wire visualized in the right ventricle. Right Atrium Moderately increased right atrial size. Left Atrium Severely increased left atrial size. Mitral Valve Structurally normal mitral valve. No mitral valve stenosis. Mild mitral valve regurgitation. Aortic Valve Aortic valve not well visualized. No aortic valve stenosis. No aortic valve regurgitation. Tricuspid Valve Tricuspid valve not well visualized. Trace to mild tricuspid valve regurgitation. Pulmonic Valve Pulmonic valve not well visualized. Pericardium No pericardial effusion. Aorta Aorta not well visualized. CONCLUSIONS 1. This is a technically difficult study. 2. Moderately increased left ventricular cavity size. Severely decreased left ventricular systolic function. Left ventricular ejection fraction is estimated at 20-25%. Global hypokinesis. The study is inadequate to estimate regional variation. Abnormal diastolic function. 3. Moderately dilated right ventricular size with moderately decreased right ventricular systolic function. 4. Severely increased left atrial size. 5. When compared to previous echocardiogram dated 04/21/2020, right ventricle systolic function may have decreased. Rossy Navarro MD (Electronically Signed) Final Date: 28 March 2021 18:28 S
--- NOTE | 2021-03-28 01:01 | US_ITS ---
WS: [id number] ULTRASOUND ABDOMEN LIMITED CLINICAL INFORMATION: RUQ US, ,transaminitis COMPARISON: May 15, 2020 FINDINGS: Technically difficult examination. Liver Size: Enlarged Craniocaudal length: 18.4 cm. Echogenicity: Coarse Surface nodularity: None. Mass (size and location): None. Bile ducts Intrahepatic ducts: Normal. Common bile duct diameter: 0.4 cm. Gallbladder Cholelithiasis Gallstones: Present Gallbladder sludge: None. Gallbladder wall thickening: None. Pericholecystic fluid: None. Sonographic Araujo sign: Absent. Pancreas Normal as visualized. Right kidney: Normal. Hydronephrosis: None. Size: 10.7 cm x 3.6 cm x 6.0 cm. Abdominal aorta and IVC Visualized portions are normal. Ascites: None. US/US abdomen limited 19596 IMPRESSION: 1. Hepatomegaly with coarse hepatic echotexture 2. Cholelithiasis. Gallbladder is contracted. No gallbladder wall thickening o r pericholecystic fluid. 3. Normal common bile duct. 4. No hydronephrosis in right kidney.
--- NOTE | 2021-03-28 01:09 | P.HP_ITS ---
Providers/Chief Complaint Admitting Physician: Soila Irene MD Primary Care Provider: Nign Nunes NP Chief Complaint: RAPID HEART RATE/BACK PAIN/LIGHT HEADED History of Present Illness Cheko Weaver is a 65 year old male with past medical history of longstanding persistent atrial fibrillation/atrial flutter non ischemic cardiomyopathy s/p AICD, COPD and aortic aneurysm presented to the ER with c/o 2 episodes of firing of ICD earlier this afternoon. Device interrogation reportedly did not reveal any delivered shocks. He has additionally been expeirnecing increasing dyspnea and anasarca over the past 3-4 weeks for which he increased his lasix dose from 20mg po daily to 60mg po daily one week ago without significant relief in symptoms. He is visibly dyspneic on exam with RR 35bpm, saturation between 87- 90% on 6lpm supplemental 02. Orthopnea+. Denies chest pain, palpitations, syncope. He has received 40mg IV lasix thus far without significant urine output at 3 hrs. Denies fever, reports worsening cough over same time frame. CXr shows Interstitial opacities in both lungs concerning for pulmonary edema. Review of Systems General: Reports: 10 or more systems reviewed and unremarkable except in HPI and below Const: Denies: fever(s), chills or body aches Eyes: Denies: change in vision, blurry vision or photophobia ENMT: Reports: hoarseness; Denies: throat pain, enlarged tonsils, odynophagia or nasal congestion Card: Denies: chest pain, palpitations, irregular heart rhythm, edema, swelling of feet/ankles, lightheadedness, pre-syncope, dyspnea on exertion or orthopnea Resp: Denies: dyspnea, productive cough, non-productive cough, wheezing, stridor, pain on inspiration, change in phlegm color, hemoptysis or chest congestion GI: Denies: abdominal pain, nausea, vomiting, hematemesis, coffee ground emesis, dysphagia, heartburn, diarrhea, constipation, GI cramping, change in stool character, hematochezia or melena : Denies: flank pain, dysuria, urinary frequency, urinary urgency, urinary hesitancy or hematuria Musc: Denies: neck pain, back pain, extremity pain, joint swelling, joint warmth or deformity Neuro: Denies: headache(s), numbness in extremities, weakness in extremities, sensory changes, difficulty walking, frequent falls, dizziness, vertigo, behavioral changes, Slurred speech present or seizure-like activity Psych: Denies: anxiety, depression, suicidal ideation or homicidal ideation Endo: Denies: polyuria, polydipsia, tired all the time, cold intolerance or hot flashes Cuco/Lymph: Denies: easy bruising or easy bleeding Medications/Allergies Home Medications Medication Instructions Recorded Confirmed Last Taken Type Eliquis 5 mg PO BID 05/24/19 10/16/20 10/15/20 History Spiriva with HandiHaler 1 cap INHALATION DAILY 05/24/19 10/18/20 10/17/20 History allopurinol 100 mg PO DAILY 05/24/19 10/18/20 10/17/20 History aspirin 81 mg PO DAILY 05/24/19 10/16/20 10/15/20 History ferrous sulfate 325 mg PO DAILY 05/24/19 10/18/20 10/17/20 History finasteride 5 mg PO DAILY 05/24/19 10/18/20 10/17/20 History rosuvastatin 40 mg PO DAILY 05/24/19 10/18/20 10/17/20 History albuterol sulfate 1 inh INHALATION Q6H PRN #1 each 05/29/19 10/18/20 10/17/20 Rx furosemide 20 mg tablet 20 mg PO DAILY PRN #30 tab 11/16/20 11/16/20 Unknown Rx lisinopril 5 mg tablet 5 mg PO DAILY 11/16/20 Unknown History metoprolol succinate 25 mg 25 mg PO BID #60 tab 11/16/20 11/16/20 Unknown Rx tablet,extended release 24 hr spironolactone 25 mg tablet 25 mg PO DAILY 11/16/20 Unknown History tamsulosin 0.4 mg capsule 0.4 mg PO DAILY 11/16/20 Unknown History Allergies Allergy/AdvReac Type Severity Reaction Status Date / Time No Known Allergies Allergy Verified 02/14/21 10:51 PFSH Acute PFSH: Medical History Abdominal aortic aneurysm Atrial fibrillation Sotalol discontinued. Placed on amiodarone and metoprolol with adequate rate control CHF (congestive heart failure) Compensated currently Cirrhosis Colon polyps COPD (chronic obstructive pulmonary disease) Stable Hyperlipidemia Hypertension Nonischemic cardiomyopathy Repeat echocardiogram in the hospital demonstrated improvement of EF to 40% Thrombocytopenia Surgical History H/O hernia repair L inguinal hernia repair History of implantable cardioverter-defibrillator (ICD) placement 12/20/18 History of orthopedic surgery Repair heel fracture Status post colonoscopy (10/18/20) Family History Mother Dementia Father CAD (coronary artery disease) Social History Smoking and tobacco status: current every day smoker Alcohol intake: current Alcohol intake frequency: other Vitals/I&O/Wt Last Vital Signs Temp 97.8 F 03/27/21 17:00 Pulse 96 03/28/21 00:00 Resp 21 H 03/28/21 00:00 BP 102/76 03/28/21 01:00 Pulse Ox 89 L 03/28/21 00:00 Weight last 48 hrs Weight 122.47 kg Physical Exam Narrative: EXAM NARRATIVE: General: No acute distress, AO x3 HEENT: PERRLA, pupils bilaterally equal and reactive, pallors not present Chest: Normal vesicular breath sounds, no added sounds, equal good air entry bilaterally CVS: S1-S2 regular, no murmurs, no tachycardia, no gallops, no rubs Abdomen: Soft, nontender, no organomegaly, bowel sounds present Neuro: No focal deficits, no facial deformity, AO x3, power 5/5 in all limbs Extremities: anasarca+ Data : 03/27/21 17:35 03/27/21 17:35 A&P Assessment and plan (1) CHF exacerbation: Acute on chronic CHF excaerbation not responsive to increase in po diuretics as outpatient Noted to have pulmonary edema, anasarca and elevated BNP today Bumex 2mg IV q12h, monitor renal function and urine output closely Admitting to ICU in view of fluctuating blood pressure- noted to have sytsolic B P range between 70-110 systolic. Levophed if MAP less than 65. Troponin mildly elevated at 19, negative delta at 2 hrs and 6 hrs Check ABG supplemental 02 to keep sat >90% device interrogation check echocardiogram Status: Acute Qualifiers: Heart failure type: combined systolic and diastolic Qualified Code(s): I50.43 - Acute on chronic combined systolic (congestive) and diastolic (congestive) heart failure (2) Atrial flutter with controlled response: continue metoprolol, eliquis Status: Acute (3) Hypotension: Status: Acute (4) Abnormal liver enzymes: Us liver hepatitis panel suspect hepatic congestion from CHF Status: Acute (5) Hyponatremia: likely from hypervolemia Status: Acute Attestations Medical Necessity Statement*: anticipate >2midnight admission for CHF exacerbation, iv diuresis Coding Level of Care Code 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
[2021-03-28 01:54] LABS: Hepatitis A Antibody IgM Non-Reactive (Nonreactive); Hepatitis B Core AB, Total Non-Reactive (Nonreactive); Hepatitis B Surface AB 61.2 (11.5-1000); Hepatitis B Surface Antigen Non-Reactive (Nonreactive); Hepatitis C Virus Antibody Non-Reactive (Nonreactive)
[2021-03-28 02:44] LABS: ABG PCO2 35.6 mmHg (35-45); ABG PH Result 7.38 (7.35-7.45); Alveolar-Arterial Oxygen Gradi 6.1 mmHg (5-10); Arterial Blood Gas Hematocrit 46.7 % (42-52); Base Excess ABG -3.2 mmol/L (-2.0-2.0); Blood Gas Allen Test Pos; Blood Gas Sample Site Radial, right; Blood Gas Sample Type Arterial; Carboxyhemoglobin 2.3 %THgb (0.4-20.1); HCO3 ABG 21.2 mmol/L (22-26); HGB O2 Sat 87.5 % (95-100); Ionized Calcium Level - ABG 1.2 mmol/L (1.1-1.4); Methemoglobin 0.6 % (0.4-1.5); Oxygen Device NC; Oxygen Saturation ABG 90.1; PO2 ABG 60.4 mmHg (80.0-100.0); Total Hemoglobin 15.2 g/dL (14-18)
[2021-03-28] MEDS: bumetanide 0.25 mg/mL SDV 10 mL 2 MG IVP ×2 (06:17→17:40)
--- NOTE | 2021-03-28 08:37 | PC.PHAR ---
pt states he takes care of his own medications-pt states he only takes metoprolol succinate 25mg daily rx filled on 02/25/21 30d/s for 25mg bid
[2021-03-28] MEDS: aspirin 81 mg Chew Tablet PO (08:57)
[2021-03-28] MEDS: pantoprazole DR 40 mg Tablet PO (08:57)
[2021-03-28] MEDS: tamsulosin 0.4 mg Capsule PO (08:57)
[2021-03-28] MEDS: apixaban 5 mg Tablet PO ×2 (08:57→17:40)
[2021-03-28] MEDS: atorvastatin 40 mg Tablet 80 MG PO (08:57)
--- NOTE | 2021-03-28 10:51 | PC.NURSE ---
Pharmacy called to request medication as this RN cannot pull from [facility]
[2021-03-28] MEDS: finasteride 5 mg Tablet PO (11:05)
[2021-03-28] MEDS: metoprolol succinate ER (24 HR) 25 mg Tablet PO ×2 (11:05→20:22)
[2021-03-28] MEDS: allopurinol 100 mg Tablet PO (11:05)
--- NOTE | 2021-03-28 13:38 | PM.MISC ---
Miscellaneous Note Note: Patient was seen and examined in the ER room 12 Patient was sitting at the bedside Saturating well on 2 L nasal cannula patient does not use oxygen at home I fixed his blood pressure cuff which showed blood pressure 108/81 mmHg Patient was not complaining of active chest pain I did review his AICD report, no shocks were delivered Patient is denying chest pain, endorsing orthopnea, PND, excessive weight gain despite using Lasix, he does smoke on and off No use of alcohol Lives alone, tries to cook for himself, does not eat frozen food, He is full code On clinical exam he has severe signs of right-sided heart failure Lung auscultation did not reveal any exacerbation of crackles or wheezing He is requiring 2 L of oxygen to keep O2 saturation above 90% He does have bluish tinge to his toes and nails No central cyanosis S1, S2 variable Distended abdomen with visceral obesity 3+ pitting edema extending all the way up to his thighs Venous stasis dermatitis Plan Acute CHF exacerbation No active chest pain Does not have ACS Patient is stating that he tries to eat fresh fruit and vegetables, does not eat frozen meals Continue Bumex for now Repeat blood pressure seems to be better, blood pressure cuff was suggested it was showing low blood pressure and it was around his elbow He does have bluish tinge to his toes and nails, I did not see mottling of skin if his map stays below 65 would recommend levo and dobutamine Reduced ejection fraction heart failure status post AICD, AICD has not shown any recent events as per the report Patient is full code Abnormal transaminases secondary to right-sided heart failure I do suspect he has severe pulmonary hypertension and sleep apnea which is contributing to right-sided heart failure Check D-dimer Patient is vaccinated for COVID-19 Hypervolemic hyponatremia: Anticipating improvement with diuresis This shows poor prognosis with CHF and hyponatremia Cardiac diet DVT prophylaxis anticoagulating agent, Eliquis which she takes for A. fib Full code Smoking cessation counseling Time 15-30 minutes
--- NOTE | 2021-03-28 13:58 | PC.NURSE ---
Report called to floor, advised by staff that pts nurse is not available at this time, RILEY Johansen and RILEY Davis will call back when available
--- NOTE | 2021-03-28 14:14 | PC.NURSE ---
RILEY Davis calling to get report on pt.
--- NOTE | 2021-03-28 14:23 | PC.NURSE ---
Pt admitted to ICU from Ed. No pain per pt. Pt on 2lpm/NC, pt able to shift himself from ED gurney to ICU bed without difficulty. NO shortness of breath noted at this time. Pt's abdomen is large,round and distended. Pt denies pain. Bruising noted on arms. 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 Room orientation provided.
[2021-03-28 14:47] LABS: Coronavirus Test Green County Not Detected
--- NOTE | 2021-03-28 17:27 | PC.NURSE ---
B/P not reading well. It has been on pt's left arm, he did not like it there, it hurt. On his left leg. Now on right arm, keeps timing out. Pt wiggling quit a bit.
--- NOTE | 2021-03-28 18:38 | PC.NURSE ---
Shift Note: Pt alert and oriented. Difficulty obtaining blood pressures this afternoon. B/P cuff on left forearm is working best. His feet turn purple after he dangled them off bed for his meal. He did wheeze while getting back into bed. He uses the urnail, 450ml out since ICU arrival. Frequent safety and comfort rounds continue. Orders and/or nursing care completed as indicated. Patient monitored for response to intervention and treatment(s). Education provided includes Bumex and apixaban, oxygen therapy. 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 Will continue to monitor.
[2021-03-28] MEDS: ipratropium-albuterol 3 mL Neb INHALATION (21:13)
[2021-03-28] MEDS: guaiFENesin 100 mg/5 mL UDC 10 mL 200 MG PO (23:08)
[2021-03-28] MEDS: acetaminophen 325 mg Tablet 650 MG PO (23:08)
[2021-03-29] VITALS (37 sets, daily range): BP systolic 83–160; BP diastolic 50–111; PULSE 70–113; RESP 15–42; TEMP 35.7–36.4; O2SAT 72–97
[2021-03-29] MEDS: ipratropium-albuterol 3 mL Neb INHALATION ×2 (03:07→08:49)
[2021-03-29 05:07] LABS: Basophils % 0.1 %; Eosinophils % 0.2 %; Hematocrit 44.7 % (42.0-52.0); Hemoglobin 14.2 g/dL (11.7-16.6); Lymphocytes # 1.8 10^3/uL (0.8-4.8); Lymphocytes % 15.1 %; Mean Corpuscular HGB Conc 31.8 g/dL (30.0-36.0); Mean Corpuscular Hemoglobin 30.3 pg (28.0-34.0); Mean Corpuscular Volume 95.3 fl (80-94); Mean Platelet Volume 10.6 fL (7.4-10.4); Monocytes # 1.5 10^3/uL (0.2-0.9); Monocytes % 12.7 %; Neutrophils # 8.47 10^3/uL (1.8-7.7); Neutrophils % 71.4 %; Nucleated Red Blood Cells # 0.2 /100WBC; Nucleated Red Blood Cells % 1.6 %; Platelet Count 242 10^3/cmm (130-400); Red Blood Count 4.69 10^6/uL (4.1-5.3); Red Cell Distribution Width 16.3 % (12.1-15.1); White Blood Count 11.9 10^3/uL (4.0-10.0)
[2021-03-29 05:30] LABS: Alanine Aminotransferase 246 U/L (0-41); Albumin Level 3.2 g/dL (3.5-5.2); Alkaline Phosphatase 139 IU/L (40-130); Aspartate Amino Transferase 90 U/L (0-40); Blood Urea Nitrogen 36 mg/dL (8-23); Calcium 8.9 mg/dL (8.5-10.5); Carbon Dioxide 24 mmol/L (22-29); Chloride 97 mmol/L (98-107); Globulin 3.3 g/dL (1.3-4.6); Glomerular Filtration Rate 40.8 mL/min (90-130); Glucose 97 mg/dL (65-115); Magnesium 2.2 mg/dL (1.7-2.3); Osmolality Calculated 284 mOsm/kg (285-295); Sodium 133 mmol/L (136-145); Total Bilirubin 0.7 mg/dL (0.15-1.2); Total Protein 6.5 g/dL (6.6-8.7)
[2021-03-29] MEDS: bumetanide 0.25 mg/mL SDV 10 mL 2 MG IVP (06:05)
[2021-03-29] MEDS: guaiFENesin 100 mg/5 mL UDC 10 mL 200 MG PO ×2 (07:32→15:10)
[2021-03-29] MEDS: atorvastatin 40 mg Tablet 80 MG PO (08:09)
[2021-03-29] MEDS: finasteride 5 mg Tablet PO (08:09)
[2021-03-29] MEDS: tamsulosin 0.4 mg Capsule PO (08:09)
[2021-03-29] MEDS: pantoprazole DR 40 mg Tablet PO (08:10)
[2021-03-29] MEDS: apixaban 5 mg Tablet PO (08:10)
[2021-03-29] MEDS: allopurinol 100 mg Tablet PO (08:10)
[2021-03-29] MEDS: aspirin 81 mg Chew Tablet PO (08:10)
--- NOTE | 2021-03-29 08:57 | PC.NURSE ---
metoprolol not given this am per dr Joseph. aware blood pressure
--- NOTE | 2021-03-29 11:48 | PM.PN ---
Subjective Subjective: Interval history: Patient is stating that with BiPAP he felt better this morning he was more weak noted eating breakfast Blood pressure 107/75, none require vasopressors for a few hours overnight No overnight events Creatinine 1.7 today -1.7 L Hyponatremia slightly improved Vitals/I&O/Wt Last Vital Signs Temp 96.8 F L 03/29/21 04:00 Pulse 85 03/29/21 09:00 Resp 30 H 03/29/21 09:00 BP 107/75 03/29/21 10:30 Pulse Ox 90 03/29/21 10:30 03/28/21 03/29/21 03/29/21 22:59 06:59 14:59 Intake Total 660 / 660 250 / 250 Output Total 1520 / 1520 440 / 1960 650 / 650 Balance -860 / -860 -440 / -1300 -400 / -400 Weight last 48 hrs Weight 122.47 kg Physical Exam Narrative: EXAM NARRATIVE: Patient was sitting at the bedside eating breakfast Saturating well on 2 L nasal cannula Systolic blood pressure 107 mmHg He does have adamson looking nails of his digits and toes otherwise no skin mottling Pedal edema positive Signs of right-sided heart failure Lung sounds clear I did not appreciate crackles S1, S2 variable Abdomen distended, visceral obesity Awake alert oriented x3 GCS 15 Data : 03/29/21 04:26 03/29/21 04:26 A&P Assessment and plan (1) Hyponatremia: Status: Acute (2) Hypotension: Status: Acute (3) Volume overload: Status: Acute (4) CHF exacerbation: Status: Acute Qualifiers: Heart failure type: combined systolic and diastolic Qualified Code(s): I50.43 - Acute on chronic combined systolic (congestive) and diastolic (congestive) heart failure (5) Abnormal liver enzymes: Status: Acute (6) Anticoagulation adequate: Status: Acute (7) Tobacco abuse: Status: Acute (8) History of implantable cardioverter-defibrillator (ICD) placement: Status: Acute Additional A&P Information Acute exacerbation of ejection fraction heart failure most likely due to underlying sleep apnea and pulmonary hypertension Right ventricular function has decreased -1.7 L fluid balance Creatinine 1.7 today Patient is endorsing feeling better with use of BiPAP overnight AICD interrogation did not show acute events No signs of ACS patient is chest pain-free Troponin unremarkable Decrease Bumex dose to 2 mg daily instead of twice a day Poor EF, did require vasopressors Levophed for few hours in the ICU, he does seem to have chronic systolic dysfunction that would explain his nail discoloration of hands and toes I do not see active mottling, Hyponatremia related to hypervolemia improving with diuresis Abnormal liver enzymes related to right-sided heart failure due to right ventricular systolic dysfunction, no signs of cholecystitis or cholelithiasis History of A. 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
--- NOTE | 2021-03-29 12:07 | PC.CHAP ---
Pastoral Care Encounter/Spiritual Assessment Type of Contact [] Declined residential monitor visit [] Patient/Family/Request visit [] Outpatient visit [] Follow-up visit [] Physician referral [] Code/Alert [xx] Routine visit [] Staff referral [] Actively dying [] Patient sleeping [] Family support [] [] Out of room [] Palliative care [] [] Receiving care in room [] Pre-surgical visit [] Trauma [] Long length of stay [xx] ICU visit [] Other: Relational/Emotional Strength [] Patient feels connected with others/family/visitors/staff [] Distress [] Loneliness/isolation [] Abandonment Spirituality of Patient [] Person of Barbara [] Attends Voodoo of their Barbara [xx] Believes in Prayer [] Reads Bible or Caodaism materials [] There are Spiritual issues to be addressed Derrick Follower Interventions [xx] Prayer [] Active listening [xx] Non-anxious presence [] Spiritual/emotional support [] Crisis/trauma care [] Spiritual counseling [] Bereavement support [] Provided bereavement packet [] Provided Bible/devotional materials [] Provided toy/stuffed animal, coloring book to patient or family member [] Provided Communion [] Anointing/[place] [] Salvation [xx] Completed spiritual assessment [] Other: Impact on Illness or Injury [] Angry [] Fearful [] Anxious [] Often cries [] Exhaustion [] Unable to work [] Unable to attend evangelical [] Unable to walk/stand [] Unable to read [] Unable to drive [] Unable to eat/drink [] Unable to sleep [] Unable to be with family [] Patient intubated [] Other: Summary Patient in ICU not too coherent during visit. He was quite groggy. Derrick Follower prayed and left. Time spent with patient 2 minutes
--- NOTE | 2021-03-29 14:13 | PC.NURSE ---
report called to 1st floor and transfered to room 102 pt to call his daughter when to room
[2021-03-29] MEDS: apixaban 5 mg Tablet 2.5 MG PO (18:02)
--- NOTE | 2021-03-29 18:55 | PC.NURSE ---
Received report from RILEY Robles. Patient resting in bed. Patient having difficulty getting comfortable. C/O all over body pain 08/18. Repositioned for comfort. Instructed patient on plan for this night. Patient verbalized complete understanding.
[2021-03-30] VITALS (8 sets, daily range): BP systolic 86–106; BP diastolic 62–73; PULSE 83–93; RESP 18–22; TEMP 36.6–37.1; O2SAT 72–94
[2021-03-30 03:25] LABS: Basophils # 0.1 10^3/uL (0.0-0.1); Basophils % 0.5 %; Eosinophils # 0.1 10^3/uL (0.0-0.8); Eosinophils % 0.6 %; Hemoglobin 14.6 g/dL (11.7-16.6); Lymphocytes % 19.4 %; Mean Corpuscular HGB Conc 31.1 g/dL (30.0-36.0); Mean Corpuscular Hemoglobin 29.6 pg (28.0-34.0); Mean Corpuscular Volume 95.3 fl (80-94); Mean Platelet Volume 10.8 fL (7.4-10.4); Monocytes # 1.3 10^3/uL (0.2-0.9); Monocytes % 12.1 %; Neutrophils # 7.04 10^3/uL (1.8-7.7); Nucleated Red Blood Cells # 0.1 /100WBC; Nucleated Red Blood Cells % 0.9 %; Platelet Count 220 10^3/cmm (130-400); Red Blood Count 4.93 10^6/uL (4.1-5.3); Red Cell Distribution Width 16.3 % (12.1-15.1); White Blood Count 10.5 10^3/uL (4.0-10.0)
[2021-03-30 03:46] LABS: Anion Gap 15.1 (5-19); Blood Urea Nitrogen 37 mg/dL (8-23); Calcium 8.8 mg/dL (8.5-10.5); Carbon Dioxide 26 mmol/L (22-29); Chloride 95 mmol/L (98-107); Glomerular Filtration Rate 47.1 mL/min (90-130); Glucose 95 mg/dL (65-115); Magnesium 2.2 mg/dL (1.7-2.3); Osmolality Calculated 282 mOsm/kg (285-295); Potassium 4.1 mmol/L (3.5-5.1); Sodium 132 mmol/L (136-145)
--- NOTE | 2021-03-30 05:30 | PC.NURSE ---
Shift Note Frequent safety and comfort rounds continue. Orders and/or nursing care completed as indicated. Patient monitored for response to intervention and treatment(s). Education provided includes oxygen and telemetry monitoring. Patient verbalized understanding. Patient sitting on edge of bed this morning. Reports sleeping well last night. Patient requested to have his [employer] from [employer] heated up for breakfast which was done. Ice provided. Box of donuts at bedside. Patient denies pain or other needs. No distress observed. Will continue to monitor.
[2021-03-30] MEDS: atorvastatin 40 mg Tablet 80 MG PO (08:24)
[2021-03-30] MEDS: apixaban 5 mg Tablet 2.5 MG PO (08:24)
[2021-03-30] MEDS: aspirin 81 mg Chew Tablet PO (08:24)
[2021-03-30] MEDS: allopurinol 100 mg Tablet PO (08:24)
[2021-03-30] MEDS: finasteride 5 mg Tablet PO (08:24)
[2021-03-30] MEDS: pantoprazole DR 40 mg Tablet PO (08:24)
[2021-03-30] MEDS: bumetanide 1 mg Tablet 2 MG PO (08:24)
[2021-03-30] MEDS: tamsulosin 0.4 mg Capsule PO (08:25)
[2021-03-30] MEDS: metoprolol succinate ER (24 HR) 25 mg Tablet PO (08:25)
--- NOTE | 2021-03-30 13:30 | PC.NURSE ---
Patient is not compliant with wearing is oxygen. Patient has been educated on the importance of wearing his oxygen and the risks of not complying. Patient understands and still continues to periodically remove oxygen for long periods of time.
--- NOTE | 2021-03-30 14:13 | P.DS_ITS ---
Discharge Providers Date of Admission: 03/28/21 06:08 Date of Discharge: March 30, 2021 Attending Provider at Admission: Soila Irene MD Attending Provider at Discharge: Ronald Banks MD Primary Care Provider: Ning Nunes NP Diagnoses at Discharge Discharge Diagnosis (1) Hyponatremia: Status: Acute (2) Hypotension: Status: Acute (3) Volume overload: Status: Acute (4) CHF exacerbation: Status: Acute Qualifiers: Heart failure type: combined systolic and diastolic Qualified Code(s): I50.43 - Acute on chronic combined systolic (congestive) and diastolic (congestive) heart failure (5) Abnormal liver enzymes: Status: Acute (6) Anticoagulation adequate: Status: Acute Permanent problem details: Eliquis (7) Tobacco abuse: Status: Acute Permanent problem details: Counseled (8) History of implantable cardioverter-defibrillator (ICD) placement: Status: Acute Permanent problem details: 12/20/18 Reason for Visit Reason for Visit: RAPID HEART RATE/BACK PAIN/LIGHT HEADED Hospital Course Hospital Course History of Present Illness by DR Irene Cheko Weaver is a 65 year old male with past medical history of longstanding persistent atrial fibrillation/atrial flutter non ischemic cardiomyopathy s/p AICD, COPD and aortic aneurysm presented to the ER with c/o 2 episodes of firing of ICD earlier this afternoon. Device interrogation reportedly did not reveal any delivered shocks. He has additionally been expeirnecing increasing dyspnea and anasarca over the past 3-4 weeks for which he increased his lasix dose from 20mg po daily to 60mg po daily one week ago without significant relief in symptoms. He is visibly dyspneic on exam with RR 35bpm, saturation between 87- 90% on 6lpm supplemental 02. Orthopnea+. Denies chest pain, palpitations, syncope. He has received 40mg IV lasix thus far without significant urine output at 3 hrs. Denies fever, reports worsening cough over same time frame. CXr shows Interstitial opacities in both lungs concerning for pulmonary edema HOSP COURSE 65-year-old male who was diagnosed with CHF exacerbation and hypotension at the time of admission, required vasopressors for only a few hours in the ICU, his echo showed reduced ejection fraction, with decrease ejection fraction of the right ventricle he does have underlying pulmonary hypertension and sleep apnea, he has been compliant with cardiac diet and his medications. He did not experience severe worsening of chest pain or fever, his main complaint was worsening shortness of breath. AICD interrogation was unremarkable. He did seem to have worsening right-sided heart failure due to poor left ventricle ejection fraction and pulmonary hypertension, he was put on lower settings of BiPAP, diuresed aggressively with seem to improve his symptoms, his creatinine also improved, on 03/30 patient was eager to return home and did not want to stay any further in the hospital, decision was made to discharge him on Bumex instead of Lasix and follow-up with Dr. Navarro. He might benefit from pulmonary hypertension clinic at [facility]. His systolic blood pressure throughout this hospitalization was ranging between 95 to 110 mmHg. Patient was counseled to return to the ER in case of worsening of shortness of breath and blood pressure. Ultrasound was done to rule out gallbladder etiology for elevated liver enzymes however I do believe this is due to worsening right-sided heart failure with congestive hepatopathy. Physical Exam Narrative: EXAM NARRATIVE: male who appears more than stated age Signs of fluid overload No skin mottling however pedal edema positive with discolored nails of toes and digits No central cyanosis No conversational dyspnea at the time of discharge No active chest pain Variable S1-S2 Bilateral breast with mild rhonchi at the bases EOMI: PERRLA nonfocal neuro exam Discharge Data Data Completed and Pending: Completed Studies During Hospitalization Category Date Time Status XR chest 1V etelvina ble [id number] Stat Exams 03/27/21 16:57 Completed CV. echo complete * [id number] Routine Ultrasound 03/28/21 01:01 Completed [place] abdomen limite d [id number] Routine Ultrasound 03/28/21 01:01 Completed Labs from last 24 hours 03/30/21 03/30/21 02:28 02:28 WBC 10.5 H RBC 4.93 Hgb 14.6 Hct 47.0 MCV 95.3 H MCH 29.6 MCHC 31.1 RDW 16.3 H Plt Count 220 MPV 10.8 H Neut % (Auto) 67.0 Lymph % (Auto) 19.4 [place] % (Auto) 12.1 Eos % (Auto) 0.6 Baso % (Auto) 0.5 Neut # (Auto) 7.04 Lymph # (Auto) 2.0 [place] # (Auto) 1.3 H Eos # (Auto) 0.1 Baso # (Auto) 0.1 Nucleated RBC % (a uto) 0.9 Nucleated RBCs # 0.1 Sodium 132 L Potassium 4.1 Chloride 95 L Carbon Dioxide 26 Anion Gap 15.1 BUN 37 H Creatinine 1.5 H GFR Calculation 47.1 L Glucose 95 Calculated Osmolal ity 282 L Calcium 8.8 Magnesium 2.2 Vitals: Last Vital Signs Temp 97.8 F 03/30/21 12:52 Pulse 85 03/30/21 12:52 Resp 18 03/30/21 12:52 BP 95/67 03/30/21 12:52 Pulse Ox 72 L 03/30/21 13:50 Discharge Plan Discharge Patient Disposition: Home Condition: Stable Prescriptions: New bumetanide 1 mg tablet 1 mg PO DAILY Qty: 90 RF: 1 Continued tamsulosin 0.4 mg capsule 0.4 mg PO DAILY RF: 0 spironolactone 25 mg tablet 25 mg PO DAILY RF: 0 allopurinol 100 mg tablet 100 mg PO QAM RF: 0 ferrous sulfate 325 mg (65 mg iron) tablet 325 mg PO EVERY OTHER DAY RF: 0 aspirin 81 mg tablet,chewable 81 mg PO BEDTIME RF: 0 finasteride 5 mg tablet 5 mg PO DAILY RF: 0 rosuvastatin 40 mg tablet 40 mg PO DAILY RF: 0 Eliquis 5 mg tablet 5 mg PO BID RF: 0 Hold Instructions: Resume on 10/20/20. metoprolol succinate 25 mg tablet extended release 24 hr 25 mg PO DAILY RF: 0 sildenafil (pulm.hypertension) 20 mg tablet 20 mg PO PRN PRN (Reason: Erectile Dysfunction) RF: 0 Symbicort 160-4.5 mcg/actuation Hfa Aerosol Inhaler 2 puff INHALATION DAILY RF: 0 albuterol sulfate 90 mcg/actuation aerosol powdr breath activated 1 inh INHALATION Q6H PRN (Reason: shortness of breath or wheezing) Qty: 1 RF: 3 Held lisinopril 5 mg tablet 5 mg PO QAM RF: 0 Hold Instructions: Resume on 04/06/21. Spiriva with HandiHaler 18 mcg capsule, w/inhalation device 1 cap INHALATION DAILY RF: 0 Hold Instructions: Resume on 04/06/21. Discontinued furosemide 20 mg tablet 20 mg PO DAILY PRN (Reason: edema) Qty: 30 RF: 6 Discharge Orders: Discharge Order (Routine); Ordered 03/30/21 Ordered By: Ronald Banks Other Ambulatory Orders: Basic Metabolic Panel (Routine) Timeframe: 3 Days Facility: [facility] - Location: Lab - Main Lab Ordered By: Ronald Banks DME: Oxygen (Order) Location: None Selected Ordered By: Ronald Banks Referrals: Ning Nunes, DARIN [Primary Care Provider] - 1 week (Ning Nunes's office will be calling you to schedule a hospital followup to be seen in approx. 1 week. If you don't hear from them by afternoon, please give them a call. Thank you) Rossy Navarro MD [Physician] - 4-7 days ([facility] will be calling to schedule a cardiology followup to be seen in 4 to 7 days. If you don't hear from them by Thursday, please give them a call. Thank you) Discharge Diet: Cardiac Discharge Activity: Cpap/Bipap as instructed Patient Instructions: Bumetanide (By mouth) (Bumex), Opioid Safety Activity Restrictions/Additional Instructions: In 3 days, please stop by the hospital to have BMP blood work done. You don't need an appointment for this. Please check in at admissions prior to heading to the Lab. Thank you Discharge Attestations Time Spent in Discharge Care*: less than 30 min Quality Metrics Clinical Quality Measures During this hospital stay, did patient experience: None Coding Level of Care Code Acute Chg FW DC note Diagnoses Hyponatremia E87.1 Hypotension I95.9 Volume overload E87.70 CHF exacerbation I50.43 Heart failure type: combined systolic and diastolic Abnormal liver enzymes R74.8 Anticoagulation adequate Z79.01 Tobacco abuse Z72.0 History of implantable cardioverter-defibrillator (ICD) placement Z95.810
--- NOTE | 2021-03-30 16:00 | PC.NURSE ---
Patient education provided regarding discharge. Patient required home oxygen. Patient declined [facility] oxygen services. Patient declined due to no space for the concentrator in his [place]th wheel that he lives in. Patient was educated regarding the risks for his decision to not comply with oxygen requirements. Financial Adviser, Marija is checking with HOME to find out if patient will qualify for a innogen, in which will work with his home setting, however, patient was not willing to wait to find out. Patient went home and if he does qualify, HOME will deliver the innogen to his home. Patients daughter, Genevieve Weaver called after discharge. Daughter wanted to know if HOME cannot help, can they change their minds and go back to [facility]. I called Marija, case reviewer. Marija will be in touch with daughter and family regarding oxygen situation.
== END 2021-03-30 16:13 | disposition home or self-care (01) | DRG 291 ==
LOC: ER 03-28 03:55 → ER IP 03-28 07:44 → ICU 03-28 13:56 → CSU 03-29 14:05
PROVIDERS: Emergency Medicine; Admitting Provider Student in an Organized Health Care Education/Training Program; Emergency Provider Emergency Medicine; PCP Nurse Practitioner Family; Visit Provider Internal Medicine
DX: I11.0 Hypertensive heart disease with heart failure (principal); I50.43 Acute on chronic combined systolic (congestive) and diastolic (congestive) heart failure; I48.11 Longstanding persistent atrial fibrillation; E87.1 Hypo-osmolality and hyponatremia; I48.92 Unspecified atrial flutter; Z95.810 Presence of automatic (implantable) cardiac defibrillator; J44.9 Chronic obstructive pulmonary disease, unspecified; I25.10 Atherosclerotic heart disease of native coronary artery without angina pectoris; I71.4 Abdominal aortic aneurysm, without rupture; K74.60 Unspecified cirrhosis of liver; E78.5 Hyperlipidemia, unspecified; I42.8 Other cardiomyopathies; D69.6 Thrombocytopenia, unspecified; F17.210 Nicotine dependence, cigarettes, uncomplicated; Z79.51 Long term (current) use of inhaled steroids; Z79.01 Long term (current) use of anticoagulants; Z79.82 Long term (current) use of aspirin; I95.9 Hypotension, unspecified; I27.20 Pulmonary hypertension, unspecified; G47.33 Obstructive sleep apnea (adult) (pediatric)
CPT/HCPCS: 36415; 36600; 71045; 76705; 80048; 80051; 80053; 82330; 82803; 82805; 83735; 83880; 84484; 85025; 86705; 86706; 86709; 86803; 87340; 87426; 87635; 93005; 93306; 93976; 94002; 94640; 99291; J1940; J3490; J7512

== ENCOUNTER 2021-04-02 09:00 | Outpatient (CLI) | payer MEDICAID, SELFPAY ==
[2021-04-02 09:58] LABS: Blood Urea Nitrogen 15 mg/dL (8-23); Carbon Dioxide 24 mmol/L (22-29); Chloride 103 mmol/L (98-107); Glomerular Filtration Rate 75.2 mL/min (90-130); Glucose 90 mg/dL (65-115); Sodium 138 mmol/L (136-145)
[2021-04-02 09:59] LABS: Calcium 8.3 mg/dL (8.5-10.5); Osmolality Calculated 286 mOsm/kg (285-295)
== END 2021-04-02 09:01 | disposition home or self-care (01) ==
PROVIDERS: PCP Nurse Practitioner Family; Visit Provider Internal Medicine
DX: I50.9 Heart failure, unspecified (principal); N17.9 Acute kidney failure, unspecified
CPT/HCPCS: 36415; 80048

== ENCOUNTER 2021-04-03 10:32 | Outpatient (CLI) | payer MEDICAID, SELFPAY ==
--- NOTE | 2021-04-03 10:39 | USCV_ITS ---
Owen Cheko Age: 65 Gender: M : 1955 Exam Date: 04/03/2021 10:47 Ordering Phys: Rossy Navarro MD ([email or web address]) Technologist: LEE Exam Location: [facility] [place] Indication: AAA HISTORY: Diameter (cm) AP x Transverse x Length Velocity (cm/s) Waveform Prox Aorta: 3.05 x 2.95 x 31.10 Mid Aorta: 2.64 x 2.77 x 23.50 Distal Aorta: 5.38 x 5.14 x 6.05 53.50 Right Iliac Prox: 2.40 x 2.69 x 55.20 Left Iliac Prox: 2.75 x 2.42 x 58.20 Stent Prox Landing x x Aneurysmal Sac Max x x Lt Lat Sac Dim Rt Lat Sac Dim Stent Dist Landing x x Right Iliac Stent x x Left Iliac Stent x x Right Renal Art Left Renal Art FINDINGS: Comparison:. 12/19/19. Quality is limited by body habitus. Maximum diameter is 5.4 cm, similar to the prior exam. No evidence of periaortic fluid is detected. There is evidence of atherosclerotic plaque no significan stenosis in the right common iliac artery. There is evidence of atherosclerotic plaque no significan stenosis in the left common iliac artery. CONCLUSIONS Stable AAA with maximum diameter of 5.[address] Rachel Luis DO (Electronically Signed) Final Date: 03 April 2021 14:33 S
== END 2021-04-03 10:33 | disposition home or self-care (01) ==
LOC: RAD 10:33
PROVIDERS: PCP Nurse Practitioner Family; Visit Provider Internal Medicine Cardiovascular Disease
DX: Z13.6 Encounter for screening for cardiovascular disorders (principal); I71.4 Abdominal aortic aneurysm, without rupture
CPT/HCPCS: 76706

== ENCOUNTER 2021-07-17 07:33 | Outpatient (CLI) | payer MEDICARE, MEDICAID, SELFPAY ==
--- NOTE | 2021-07-17 08:30 | CT_ITS ---
WS: [id number] CTA ABDOMEN PELVIS TECHNIQUE: Contrast enhanced CTA of the abdominal aorta with coronal and sagittal reformatted images and additional MIP Images. CLINICAL INFORMATION: I71.4 - Abdominal aortic aneurysm, without rupture COMPARISON: January 26, 2020 DLP: 1052.[address] scans at [facility] use at least one of these dose optimization techniques: automated e xposure control; mA and/or kV adjustment per patient size (includes targeted exams where dose is matc hed to clinical indication); or iterative reconstruction. FINDINGS: Infrarenal abdominal aortic aneurysm with peripheral mural thrombus is increased in size today measur ing 5.3 x 5.4 x 6.2 cm AP by transverse by craniocaudal. This compares to previous where it measured 4.5 x 4.6 x 6.0 CM. Stable small aneurysm of the distal thoracic/upper abdominal aorta diaphragm marichuy uring 2.7 x 2.9 cm unchanged Moderate aortic atheromatous disease. Small RIGHT common iliac artery aneurysm measuring 1.4 x 1.5 CM . This is slightly increased from previous. Celiac and SMA are patent. Splenic artery originates from the aorta. Proximal renal arteries are patent. Emphysematous changes in the lung bases. Tiny noncalcified nodule subpleural LEFT lower lobe measurin g 3 mm unchanged. Additional tiny stable subpleural 3 mm nodule LEFT lower lobe medially. Diffuse fatty infiltration of the liver. Slightly cirrhotic contour to the liver. Splenic granulomas. Adrenal glands are normal. Fatty atrophy of the pancreas. Cholelithiasis. Bilateral renal cortical a trophy. No hydronephrosis. Sigmoid diverticulosis. No evidence of acute diverticulitis. Normal appendix RIGHT lower quadrant. Mi ld diffuse bladder wall thickening. Prominent prostate with calcification. CT/CT angio abdomen pelvis [id number] IMPRESSION: 1. Progressive infrarenal abdominal aortic aneurysm today measuring 5.3 x 5.4 x 6.2 cm AP by transverse by craniocaudal. This compares to previous where it m easured 4.5 x 4.6 x 6.0 CM 2. Small RIGHT common iliac artery aneurysm measuring 1.4 x 1.6 cm slightly mo re prominent today. 3. Stable small aneurysm of the distal thoracic/upper abdominal aorta diaphrag m measuring 2.7 x 2.9 cm unchanged 4. No other significant changes compared to previous.
[2021-07-17] MEDS: iohexol 350 mg/mL 100 mL Btl IV (08:39)
== END 2021-07-17 07:34 | disposition home or self-care (01) ==
LOC: RAD 07:36
PROVIDERS: PCP Nurse Practitioner Family; Visit Provider Thoracic Surgery (Cardiothoracic Vascular Surgery)
DX: I71.4 Abdominal aortic aneurysm, without rupture (principal); I72.3 Aneurysm of iliac artery
CPT/HCPCS: 74174

== ENCOUNTER → 2021-08-05 12:44 | Outpatient (BNVA) | payer MEDICARE, MEDICAID, SELFPAY | PROVIDERS: PCP Nurse Practitioner Family; Visit Provider Nurse Practitioner Family | DX: E78.2 Mixed hyperlipidemia (principal); I42.8 Other cardiomyopathies; R74.8 Abnormal levels of other serum enzymes; Z51.81 Encounter for therapeutic drug level monitoring; Z79.899 Other long term (current) drug therapy | CPT/HCPCS: 99214 ==

== ENCOUNTER → 2021-08-09 08:45 | Outpatient (BNVA) | payer MEDICAID, SELFPAY | PROVIDERS: PCP Nurse Practitioner Family; Visit Provider Internal Medicine Cardiovascular Disease | DX: I71.4 Abdominal aortic aneurysm, without rupture (principal); F17.210 Nicotine dependence, cigarettes, uncomplicated ==

== ENCOUNTER 2021-08-14 12:56 | Outpatient (CLI) | payer MEDICARE, MEDICAID, SELFPAY ==
--- NOTE | 2021-08-14 13:10 | US_ITS ---
WS: [id number] RIGHT UPPER QUADRANT ULTRASOUND HISTORY: LIVER FIBROSIS COMPARISON: 03/28/2021 Liver: 17.6 cm in length. Mildly enlarged liver with coarse echotexture. Surface of the liver is very mildly nodular. No mass or bile duct dilatation. Portal Vein: Normal hepatopetal flow with monophasic waveform. Gallbladder: Normally distended gallbladder with a stone. No pericholecystic fluid or gallbladder wal l thickening. CBD: 0.4 cm Pancreas: Not well visualized. Right kidney: 11.2 cm in length. Normal size and echogenicity. No hydronephrosis or mass. Aorta and IVC: Patient has a known abdominal aortic aneurysm. The aneurysm was better identified on a prior CT of 07/17/2021. By ultrasound aneurysm measures at least 5.[address] was more ac curate. No ascites. US/US abdomen limited [id number] IMPRESSION: 1. Cholelithiasis without acute cholecystitis. 2. Mild hepatomegaly and hepatic steatosis with early changes of fibrosis. 3. Pancreas not well visualized due to body habitus. 4. Known abdominal aortic aneurysm.
== END 2021-08-14 12:57 | disposition home or self-care (01) ==
PROVIDERS: PCP Nurse Practitioner Family; Visit Provider Nurse Practitioner Family
DX: K74.00 Hepatic fibrosis, unspecified (principal); K80.20 Calculus of gallbladder without cholecystitis without obstruction; R16.0 Hepatomegaly, not elsewhere classified; K76.0 Fatty (change of) liver, not elsewhere classified; I71.4 Abdominal aortic aneurysm, without rupture
CPT/HCPCS: 76705

== ENCOUNTER → 2021-09-11 11:13 | Day surgery (SDC) | payer MEDICARE, MEDICAID, SELFPAY | PROVIDERS: PCP Nurse Practitioner Family; Visit Provider Thoracic Surgery (Cardiothoracic Vascular Surgery) | DX: Z01.818 Encounter for other preprocedural examination (principal) | CPT/HCPCS: 93005 ==

== ENCOUNTER 2021-09-17 11:18 | Inpatient (IN) | payer MEDICARE, MEDICAID, SELFPAY ==
--- NOTE | 2021-09-11 11:13 | ECG_ITS ---
[facility] Test Date: 2021-09-11 Pat Name: Cheko Weaver Department: Room: Gender: Male Process Engineer: : 1955 Requested By: Abdifatah Garcia Order Number: [id number] Keny MD: Lele Donaldson M.D. Measurements Intervals [place] Rate: 71 P: DC: QRS: -63 QRSD: 105 T: 101 QT: 405 QTc: 441 Interpretive Statements ELECTRONIC VENTRICULAR PACEMAKER -- CONTOUR ANALYSIS BASED ON INTRINSIC RHYTHM LOW QRS VOLTAGE IN PRECORDIAL LEADS [QRS DEFLECTION < 1.0 mV IN CHEST LEADS] Underlying rhythm atrial fibrillation ANTERIOR MYOCARDIAL INFARCTION , PROBABLY OLD [40+ ms Q WAVE AND/OR ST/T ABNORMALITY IN V3/V4] INFERIOR MYOCARDIAL INFARCTION , PROBABLY OLD [40+ ms Q WAVE AND/OR ST/T ABNORMALITY IN II/aVF] Compared to ECG 03/27/2021 20:28:07 Aberrant conduction of supraventricular beat(s) no longer present Myocardial infarct finding still present Electronically Signed On 09-12-2021 10:58:46 CDT by Lele Donaldson M.D. [id number]
[2021-09-11 11:26] LABS: Basophils # 0.1 10^3/uL (0.0-0.1); Basophils % 0.5 %; Eosinophils # 0.1 10^3/uL (0.0-0.8); Eosinophils % 0.7 %; Hematocrit 53.6 % (42.0-52.0); Hemoglobin 16.9 g/dL (11.7-16.6); Lymphocytes % 20.2 %; Mean Corpuscular HGB Conc 31.5 g/dL (30.0-36.0); Mean Corpuscular Hemoglobin 30.7 pg (28.0-34.0); Mean Corpuscular Volume 97.5 fl (80-94); Monocytes # 1.1 10^3/uL (0.2-0.9); Monocytes % 10.8 %; Neutrophils # 6.74 10^3/uL (1.8-7.7); Neutrophils % 67.4 %; Nucleated Red Blood Cells % 0 %; Platelet Count 285 10^3/cmm (130-400); Red Cell Distribution Width 17.2 % (12.1-15.1)
[2021-09-11 11:47] VITALS: BMI 34.0
[2021-09-11 11:58] LABS: Anion Gap 13.8 (5-19); Blood Urea Nitrogen 14 mg/dL (8-23); Calcium 9.9 mg/dL (8.5-10.5); Carbon Dioxide 26 mmol/L (22-29); Chloride 103 mmol/L (98-107); Glomerular Filtration Rate 113.2 mL/min (90-130); Glucose 82 mg/dL (65-115); Osmolality Calculated 286 mOsm/kg (285-295); Potassium 4.8 mmol/L (3.5-5.1); Sodium 138 mmol/L (136-145)
[2021-09-11 12:26] LABS: Bilirubin Urine 1+ (Negative); Blood Urine Neg (Negative); Glucose Urine UA Norm (Normal); Ketones Urine Negative (Negative); Nitrate Urine Negative (Negative); Protein Urine Trace (Negative); Urine Appearance Clear (CLEAR); Urine Color Amber (Yellow); Urobilinogen Urine 8 mg/dL (Negative); pH Urine 7 (5-7)
[2021-09-11 12:27] LABS: Add Urine Culture? No; Add Urine Microscopic? YES; Leukocyte Esterase Urine Trace (Negative); RBC Urine 0-4 /hpf (0-2); Squamous Epithelial Cell Urine 0-4 /hpf (0-5); WBC Urine 0-4 /hpf (0-5)
--- NOTE | 2021-09-11 12:30 | P.ANESASSM_ITS ---
Pre-Anesthetic Assessment Height/Weight: Height 1.7 m Weight 98.43 kg Preop Diagnosis: Abdominal aortic aneurysm Operation Date: 09/17/21 07:00 Proposed Procedures p AAA Stent Cutdown(Not Applicable) - Abdifatah Garcia MD Operation Date: 09/17/21 07:00 Proposed Procedures p Endovascular Aortic Repair(Not Applicable) - Abdifatah Garcia MD Familial anesthetic complications: None Was Beta Vanna taken within 24 hours: Yes Was Clonidine taken within 24 hours: N/A Social Tobacco and No alcohol Exam alert, oriented x 3 and regular rate & rhythm Airway Submandibular: within normal limits Cervical ROM: within normal limits Mallampati: Class II Dentition: chipped and false Comments: Comments: One tooth on lower arch Pulmonary Chronic Obstructive Pulmonary Disease CV/HEM Atrial Fibrillation, Arrythmia, Coronary Artery Disease, Congestive Heart Failure (EF 20-25% 03/31) and Hypertension Pacer/AICD, AAA CONCLUSIONS ?1.? This is a technically difficult study. ?2.? Moderately increased left ventricular cavity size. Severely ?decreased left ventricular systolic function. Left ventricular ?ejection fraction is estimated at 20-25%.? Global hypokinesis.? ?The study is inadequate to estimate regional variation.? ?Abnormal diastolic function. ?3. Moderately dilated right ventricular size with moderately ?decreased right ventricular systolic function.? ?4. Severely increased left atrial size. ?5.? When compared to previous echocardiogram dated 04/21/2020, ?right ventricle systolic function may have decreased. Chronic Renal Insufficiency Hepatic Cirrhosis Metabolic Hyperlipidemia and Morbid Obesity Anesthetic Plan ASA status: 3 Anesthesia: General Other: A.line Medications/Allergies Home Medications Medication Instructions Recorded Confirmed Last Taken Type allopurinol 100 mg tablet 100 mg PO QAM 05/24/19 09/11/21 09/07/21 History apixaban 5 mg tablet (Eliquis) 5 mg PO BID 05/24/19 09/11/21 09/11/21 History ferrous sulfate 325 mg (65 mg 325 mg PO EVERY OTHER DAY 05/24/19 09/11/21 09/10/21 History iron) tablet finasteride 5 mg tablet 5 mg PO DAILY 05/24/19 09/11/21 09/10/21 History rosuvastatin 40 mg tablet 40 mg PO DAILY 05/24/19 09/11/21 09/10/21 History tiotropium bromide 18 mcg capsule 1 cap INHALATION DAILY 05/24/19 09/11/21 09/10/21 History with inhalation device (Spiriva with HandiHaler) lisinopril 5 mg tablet 5 mg PO QAM 11/16/20 09/11/21 09/10/21 History tamsulosin 0.4 mg capsule 0.4 mg PO DAILY 11/16/20 09/11/21 09/10/21 History budesonide-formoterol HFA 160 2 puff INHALATION DAILY 03/28/21 09/11/21 09/10/21 History mcg-4.5 mcg/actuation aerosol inhaler (Symbicort) albuterol sulfate 90 mcg/actuation 1 inh INHALATION Q6H PRN #1 each 03/30/21 09/11/21 09/08/21 Rx breath activated powder inhaler bumetanide 1 mg tablet 1 mg PO DAILY #90 tab 03/30/21 09/11/21 09/11/21 Rx sildenafil (pulm.hypertension) 20 20 mg PO DAILY #30 tab 04/09/21 09/11/21 09/10/21 Rx mg tablet metoprolol succinate 25 mg 25 mg PO DAILY #90 tab 06/24/21 09/11/21 09/10/21 Rx tablet,extended release 24 hr furosemide 20 mg tablet 10 mg PO QAM PRN #90 tab 06/26/21 09/11/21 09/10/21 Rx spironolactone 25 mg tablet 12.5 mg PO DAILY tab 08/05/21 09/11/21 09/10/21 History Allergies Allergy/AdvReac Type Severity Reaction Status Date / Time No Known Allergies Allergy Verified 08/09/21 09:14 [facility] Anesthesia Medical History Abdominal aortic aneurysm Atrial fibrillation Sotalol discontinued. Placed on amiodarone and metoprolol with adequate rate control CHF (congestive heart failure) Compensated currently Cirrhosis Colon polyps COPD (chronic obstructive pulmonary disease) Stable Hyperlipidemia Hypertension Nonischemic cardiomyopathy Repeat echocardiogram in the hospital demonstrated improvement of EF to 40% Thrombocytopenia Surgical History H/O hernia repair L inguinal hernia repair History of implantable cardioverter-defibrillator (ICD) placement 12/20/18 History of orthopedic surgery Repair heel fracture Status post colonoscopy (10/18/20) Family History Mother Dementia Father CAD (coronary artery disease) Social History Smoking and tobacco status: current every day smoker cigarettes Packs smoked per day: 0.5 Years cigarettes smoked: 46 Alcohol intake: current Alcohol intake frequency: other Data Anesthesia : 09/11/21 10:50 09/11/21 10:50 Short CBC 09/11/21 Range/Units 10:50 WBC 10.0 (4.0-10.0) 10^3/uL Hgb 16.9 H (11.7-16.6) g/dL Hct 53.6 H (42.0-52.0) % MCV 97.5 H (80-94) fl Plt Count 285 (130-400) 10^3/cmm Neut % (Auto) 67.4 % Neut # (Auto) 6.74 (1.8-7.7) 10^3/uL BMP 09/11/21 10:50 Sodium 138 Potassium 4.8 Chloride 103 Carbon Dioxide 26 BUN 14 Creatinine 0.7 Glucose 82 Calcium 9.9 Urine 09/11/21 Range/Units 10:53 Urine Color [place] (Yellow) Urine Appearance Clear (CLEAR) Urine pH 7 (5-7) Ur Specific [place] 1.010 (1.005-1.030) Urine Protein Trace (Negative) Urine Glucose (UA) Norm (Normal) Urine Ketones Negative (Negative) Urine Nitrate Negative (Negative) Urine Bilirubin 1+ H (Negative) Ur Leukocyte Esterase Trace H (Negative) Urine RBC 0-4 H (0-2) /hpf Urine WBC 0-4 H (0-5) /hpf Blood Bank 09/11/21 10:50 Blood Type O Positive Rho(D) Type Positive Cardiac Studies: Echocardiogram 03/28/21 Echocardiogram Ultrasound 05/07/20
[2021-09-17] VITALS (95 sets, daily range): BP systolic 84–134; BP diastolic 60–98; PULSE 0–92; RESP 12–39; TEMP 36.6–36.9; O2SAT 81–99
--- NOTE | 2021-09-17 06:57 | P.HP_ITS ---
Providers/Chief Complaint Primary Care Provider: Ning Nunes NP Chief Complaint: AAA History of Present Illness Mr. Weaver is a pleasant short statured 66-year-old gentleman whom we have been following for known infrarenal abdominal aortic aneurysm.? He has been followed for over 2 years for this known aneurysm which has been slowly increasing in dimensions. We last saw him in August of this year and schedule a follow-up CTA.? Previous study of November 2019 described a 4.5 x 4.5 x 6.4 cm aneurysm.? We had initially planned for CTA as follow-up though this was delayed related to some cardiac issues including CHF and atrial fibrillation.? He also has a known cardiomyopathy with ejection fraction of 20 to 25%.? He had a recent hospita lization from March 28 through March 30 of last year due to concerns for discharge for his AICD though upon interrogation there was no evidence that it had delivered a discharge.? He was treated for CHF exacerbation.? Since that hospitalization, he states he is doing well.? He continues to [facility] by [facility].? He was last seen by Ms. Kathya Velez on August 05 of this year.? He is followed carefully by [facility] department for his CHF, cardiomyopathy, atrial fibrillation/atrial flutter. As part of continued evaluations for his known abdominal aortic aneurysm, a fo llow-up CTA of the abdomen and pelvis was completed on July 15.? This reveals that the known aneurysm has now increased in size from 4.5 in transverse dimensions to 5.3 in transverse dimension.? It is also increased from the AP diameter 4.6-5.4.? Length is slightly increased from 6.0-6.2.? He has a small right common iliac artery aneurysm of 1.4 x 1.6 cm.? Small aneurysmal dilatation of the distal thoracic aorta measuring 2.7 x 2.9 cm which is unchanged.? He remains asymptomatic. He presents today for planned attempt at endovascular repair. I have been very rocco with Mr. Landaverde and his family that he is at increased risk for perioperative complications related to his numerous comorbidities including substantial obesity, CHF with a depressed ejection fraction of 25%, and chronic atrial fibrillation. He states he last took his Eliquis on September 14. Review of Systems Const: Reports: fatigue; Denies: fever(s), chills or change in weight ENMT: Denies: throat pain Card: Reports: palpitations, irregular heart rhythm, edema, swelling of feet/ ankles and dyspnea on exertion; Denies: chest pain Resp: Reports: dyspnea (With exertion); Denies: productive cough or non-productive cough GI: Denies: abdominal pain, nausea, vomiting or hematemesis Musc: Reports: back pain and extremity swelling; Denies: neck pain Neuro: Denies: headache(s), numbness in extremities or weakness in extremities Psych: Denies: anxiety or depression Cuco/Lymph: Denies: easy bruising or easy bleeding Medications/Allergies Home Medications Medication Instructions Recorded Confirmed Last Taken Type allopurinol 100 mg tablet 100 mg PO QA 05/24/19 09/11/21 09/16/21 08:00 History apixaban 5 mg tablet (Eliquis) 5 mg PO BID 05/24/19 09/11/21 09/11/21 History ferrous sulfate 325 mg (65 mg 325 mg PO EVERY OTHER DAY 05/24/19 09/11/21 09/16/21 08:00 History iron) tablet finasteride 5 mg tablet 5 mg PO DAILY 05/24/19 09/11/21 09/16/21 08:00 History rosuvastatin 40 mg tablet 40 mg PO DAILY 05/24/19 09/11/21 09/16/21 21:00 History tiotropium bromide 18 mcg capsule 1 cap INHALATION DAILY 05/24/19 09/11/21 09/10/21 History with inhalation device (Spiriva with HandiHaler) lisinopril 5 mg tablet 5 mg PO [facility] 11/16/20 09/11/21 09/16/21 08:00 History tamsulosin 0.4 mg capsule 0.4 mg PO DAILY 11/16/20 09/11/21 09/16/21 08:00 History budesonide-formoterol HFA 160 2 puff INHALATION DAILY 03/28/21 09/11/21 09/10/21 History mcg-4.5 mcg/actuation aerosol inhaler (Symbicort) albuterol sulfate 90 mcg/actuation 1 inh INHALATION Q6H PRN #1 each 03/30/21 09/11/21 09/08/21 Rx breath activated powder inhaler bumetanide 1 mg tablet 1 mg PO DAILY #90 tab 03/30/21 09/11/21 09/16/21 08:00 Rx sildenafil (pulm.hypertension) 20 20 mg PO DAILY #30 tab 04/09/21 09/11/21 05/07/30 Rx mg tablet metoprolol succinate 25 mg 25 mg PO DAILY #90 tab 06/24/21 09/11/21 09/17/21 05:00 Rx tablet,extended release 24 hr furosemide 20 mg tablet 10 mg PO QAM PRN #90 tab 06/26/21 09/11/21 09/16/21 08:00 Rx spironolactone 25 mg tablet 12.5 mg PO DAILY tab 08/05/21 09/11/21 09/16/21 08:00 History aspirin 81 mg PO DAILY 09/17/21 09/17/21 09/16/21 21:00 History Allergies Allergy/AdvReac Type Severity Reaction Status Date / Time No Known Allergies Allergy Verified 08/09/21 09:14 PFSH Acute PFSH: Medical History Abdominal aortic aneurysm Atrial fibrillation Sotalol discontinued. Placed on amiodarone and metoprolol with adequate rate control CHF (congestive heart failure) Compensated currently Cirrhosis Colon polyps COPD (chronic obstructive pulmonary disease) Stable Hyperlipidemia Hypertension Nonischemic cardiomyopathy Repeat echocardiogram in the hospital demonstrated improvement of EF to 40% Thrombocytopenia Surgical History H/O hernia repair L inguinal hernia repair History of implantable cardioverter-defibrillator (ICD) placement 12/20/18 History of orthopedic surgery Repair heel fracture Status post colonoscopy (10/18/20) Family History Mother Dementia Father CAD (coronary artery disease) Social History Smoking and tobacco status: current every day smoker cigarettes Packs smoked per day: 0.5 Years cigarettes smoked: 46 Alcohol intake: current Alcohol intake frequency: other Physical Exam HENMT: COMMON NORMALS: normocephalic, atraumatic, hearing grossly normal bilaterally and external ears normal Eye: COMMON NORMALS: Equal, round and reactive pupils present, EOMs intact bilaterally and conjunctivae normal Neck/C-Spine: COMMON NORMALS: full ROM, supple and No carotid bruits Chest: COMMONS NORMALS: normal inspection of the chest and normal palpation of entire chest wall Resp: COMMON NORMALS: normal respiratory effort and clear to auscultation bilaterally Cardio: COMMON NORMALS: regular rate and S1 normal heart sound present; negative for regular rhythm RHYTHM: abnormal rhythm irregularly irregular GI: INSPECTION: Yes central obesity AUSCULTATION: Yes normoactive bowel sounds PALPATION: Yes Soft to palpation, No Tenderness to palpation present (GI) and Yes Pulsatile mass present Extremity: NARRATIVE EXTREMITY EXAM: 1+ peripheral edema 2+ right femoral pulse/1+ left femoral pulse 2+ radial pulses Neuro: COMMON NORMALS: moves all extremities, no focal motor deficits and no sensory deficits noted Psych: COMMON NORMALS: mental status grossly normal, Normal thought process present, cooperative, normal affect and speech normal Data : 09/11/21 10:50 09/11/21 10:50 CT Abd/Pel: My impression: Study is from July 17, 2021 Radiologist's impression: 1.? Progressive infrarenal abdominal aortic aneurysm today measuring 5.3 x 5.4 x 6.2 cm AP by transverse by craniocaudal. This compares to previous where it measured 4.5 x 4.6 x 6.0 CM 2.? Small RIGHT common iliac artery aneurysm measuring 1.4 x 1.6 cm slightly more prominent today. 3.? Stable small aneurysm of the distal thoracic/upper abdominal aorta diaphragm measuring 2.7 x 2.9 cm unchanged 4.? No other significant changes compared to previous. ? A&P Assessment and plan (1) Abdominal aortic aneurysm: Status: Acute Qualifiers: Presence of rupture: without rupture Qualified Code(s): I71.4 - Abdominal aortic aneurysm, without rupture Plan Mr. Weaver is a pleasant, obese 66-year-old gentleman with cardiomyopathy and an ejection fraction of 25%. He has an AICD in place. He has been followed carefully by our cardiology service. He has a documented enlarging abdominal aortic aneurysm which has been followed with serial exams over the past 2 years and now is 5.4 cm in maximal transverse dimension on CTA of July of this year. Consideration for elective endovascular pair has been carefully discussed on prior clinic visits and he presents today for planned repair. I again reviewed with Mr. Weaver and his family the general conduct of endovascular pair as well as the potential risk of the surgery and the need for open repair. Indeed, if open repair were required, this would be a substantially hazardous endeavor related to his numerous comorbidities. However, given the continued enlargement of his aneurysm, it is felt prudent to attempt to proceed with endovascular pair. Details and risks of the procedure were carefully and frankly discussed. Risks reviewed include the possibility of , stroke, heart attack, major bleeding, infection, pneumonia, organ failure, kidney failure requiring need for dialysis, failure to benefit, prolonged hospital stay, pain after the procedure, need for further procedures, possible need for attempted open repair which would be a high risk endeavor, inability to complete the procedure, and need for long-term followup. All questions were answered. Appropriate consents have been provided for review and signature. He is at increased risk for perioperative complications related to his comorbidities which include chronic atrial fibrillation, obesity, and severe cardiomyopathy. He and family are aware of these increased risk. 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
--- NOTE | 2021-09-17 07:02 | P.ANESUD_ITS ---
Pre-Anesthetic Update Pre-Anesthetic Assessment: Date of Surgery/Procedure: 09/17/21 Preop Arti gnosis: screening colonoscopy Proposed Procedure: Operation Date: 09/17/21 07:00 Proposed Procedures p AAA Stent Cutdown(Not Applicable) - Abdifatah Garcia MD Operation Date: 09/17/21 07:00 Proposed Procedures p Endovascular Aortic Repair(Not Applicable) - Abdifatah Garcia MD Any changes to Pre-Anesthetic Assessment?: No Last Intake: Intake Last Liquid Date 09/17/21 Last Liquid Time 05:00 Last Solid Date 09/16/21 Last Solid Time 20:00 Labs Last 48hrs: Blood Bank 09/11/21 10:50 Blood Type O Positive Rho(D) Type Positive Antibody Screen Negative Vitals: Oxygen Delivery Nc thod 09/17/21 06:23 Exam: Pre-Anes Outpt Exam: alert, oriented x 3 and regular rate & rhythm Cardiac Studies: Echocardiogram 03/28/21 Echocardiogram Ultrasound 05/07/20
--- NOTE | 2021-09-17 11:44 | ANE.PACU2 ---
Inpatient post-anesthesia follow up: Airway intact: Yes Vital signs: Temperature Pulse Rate Respiratory Rate 19 Blood Pressure Pulse Oximetry 94 Oxygen Delivery Me thod Nasal Cannula Oxygen Flow Rate 4 Fraction of Inspir ed Oxygen 60 Hydration adequate: Yes Nausea and vomiting: No Pain level: 1 Mental status: Altered (sedated) Additional Comments: Patient initially taken to ICU 3 intubated, but quickly extubated.
--- NOTE | 2021-09-17 11:56 | PM.OP ---
Operative Report Date of procedure: September 17, 2021 Pre-op diagnosis: Preop Diagnosis enlarging abdominal aortic aneurysm Post-op diagnosis: same Procedure done: Endovascular pair of abdominal aortic aneurysm using an Endologix 25 x 90 bifurcated main body with 16 x 30 limbs in addition to a 28 x 95 proximal endograft extension Pathology: none sent Surgeon: Abdifatah Garcia Surgeon: Vikki Anesthesia: General Complications: None Condition: stable Disposition: ICU Brief History: Mr. Weaver is a 66-year-old gentleman with an infrarenal abdominal aortic aneurysm which is shown steady growth since 2019. Originally presented with aneurysm with maximal dimensions of 4.5 cm transversely. It is now enlarged to 5.3 cm in transverse dimensions and 5.4 cm in AP dimensions. Because of the steady growth, elective attempt at endovascular pair has been recommended. He has numerous comorbidities including COPD, obesity, cardiomyopathy with an ejection fraction of 20 to 25%, and chronic atrial fibrillation. He is followed closely by our cardiology service through [facility]. He underwent careful outpatient preop evaluation and was electively admitted for planned procedure. Procedure: Mr. Weaver was taken to the catheterization lab, carefully positioned, and then underwent general endotracheal anesthesia. Appropriate invasive lines were placed including right radial arterial line and adequate vascular access. His lower chest and entire abdomen, groin region, and thighs were sterilely prepped and draped. A cutdown was performed in the right groin exposing the right common femoral artery. Next, utilizing needle access and guidewire placement with fluoroscopy, a 6 Albanian sheath was placed in the left common femoral artery, and ProGlide Perclose securing sutures x 2 were engaged in the arterial wall and secured. The patient then received 10,000 units of heparin and ACT was confirmed to be therapeutic. The 6 Albanian sheath was then replaced with a 7 Albanian sheath over wire. 9 Albanian sheath was placed on the right side over guidewire. A J-wire was utilized to be exchanged on the ipsilateral side to a Lunderquist stiff wire. Next, a loaded 25 x 90 AFX2 bifurcated device and delivery sheath were placed over the stiff wire and advanced along with the contralateral wire up through the 19 Albanian AFX introducer sheath utilizing wireguide. The contralateral wire was then snared and pulled out through the left common femoral artery. The AFX2 bifurcated device was transferred into the AFX introducer sheath and advanced under fluoroscopic guidance until distal limbs were above the aortic bifurcation thereby releasing the limbs of the graft. The entire system was pulled down to the aortic bifurcation. The main body of the bifurcated graft was then deployed by pulling on the controlled cord handle. Next, we deployed the contralateral limb by pulling the yellow limb cover, advancing a pigtail catheter over the contralateral wire into the tip was in contact with the wire lock, with wire lock being released by pulling it with a stationary pigtail catheter in position. The ipsilateral limb was then deployed by pinning the inner core and retracting the AFX introducer sheath. Next, we advanced and deployed a 28 x 95 supra extension endograft after angiography was performed to visualize the renal arteries. Iliac extensions were not required. Next, we removed the extension delivery device from the AFX introducer sheath. A CODA balloon was then utilized to clear the proximal extension distally just above the bifurcation to allow for complete wall contact. The entire endograft system was then ballooned in a similar fashion beginning at the level renal arteries extending distally. 10 x 40 angioplasty balloon was then utilized on the common iliac arteries inside the bifurcated limbs. Final angiography was performed in subtraction mode revealing good seal without evidence for endoleak. Both renal arteries showed briskly. Both hypogastrics remained open as well. Next, catheters, sheaths, and guidewires were removed under fluoroscopic guidance. Perclose device was then utilized to close the left common femoral artery insertion site. This was noted to be hemostatic. The right common femoral artery was repaired directly utilizing previously placed 6-0 Prolene sutures at the time of original exposure. There was good backbleeding and forward bleeding was prior to completion of the repair. Flow was then reestablished. 50 mg of protamine was given for heparin reversal. Right groin was noted to be hemostatic. It was irrigated with antibiotic solution. Sponge and needle count was correct. Wound was closed in 2 layers of 2-0 Vicryl suture. Skin was reapproximated in a subcuticular manner with 4-0 Monocryl suture. Sterile dressings were applied. He had palpable dorsalis pedis pulses bilaterally at completion of the procedure. He was awakened and extubated upon arrival to the ICU. I did corporate counsel with the family at the completion of the procedure.
[2021-09-17] MEDS: diphenhydrAMINE 25 mg Capsule PO (23:48)
[2021-09-18] VITALS (52 sets, daily range): BP systolic 83–118; BP diastolic 58–91; PULSE 65–93; RESP 17–38; TEMP 36.4–36.7; O2SAT 86–97
[2021-09-18 06:18] LABS: Basophils % 0.2 %; Hematocrit 45.2 % (42.0-52.0); Hemoglobin 14.1 g/dL (11.7-16.6); Lymphocytes # 1.1 10^3/uL (0.8-4.8); Lymphocytes % 7.7 %; Mean Corpuscular HGB Conc 31.2 g/dL (30.0-36.0); Mean Corpuscular Hemoglobin 31.3 pg (28.0-34.0); Mean Corpuscular Volume 100.4 fl (80-94); Mean Platelet Volume 11.5 fL (7.4-10.4); Monocytes # 1.7 10^3/uL (0.2-0.9); Monocytes % 12.3 %; Neutrophils # 11.09 10^3/uL (1.8-7.7); Neutrophils % 79.4 %; Nucleated Red Blood Cells % 0 %; Platelet Count 194 10^3/cmm (130-400); Red Cell Distribution Width 16.2 % (12.1-15.1)
--- NOTE | 2021-09-18 06:40 | PM.DCS ---
Discharge Providers Date of Admission: 09/17/21 11:18 Date of Discharge: September 18, 2021 Attending Provider at Admission: Abdifatah Garcia MD Attending Provider at Discharge: Abdifatah Garcia MD Primary Care Provider: Ning Nunes NP Diagnoses at Discharge Discharge Diagnosis (1) Abdominal aortic aneurysm: Details from hospital stay: Mr. Landaverde is a 66-year-old gentleman with a documented enlarging abdominal aortic aneurysm. He has been followed for over 2 years, with the aneurysm now at 5.4 cm in maximal transverse dimensions. He has several comorbidities including chronic A. fib, COPD, and cardiomyopathy with an ejection fraction of 20%. He underwent careful outpatient evaluation. He was electively admitted on September 17 and underwent endovascular abdominal aortic aneurysm repair with a bifurcated Endologix graft with a suprarenal extension. Postop day, he has convalesced in the ICU where he is remained stable. Good distal perfusion. Chronic A. fib with controlled rate. No breathing difficulties. Dressings were changed this morning. Groin areas are clean and dry. Incision in the right groin is intact. There is no evidence for fluid collection. He has ambulated with assistance without difficulty. Arterial line and Rendon catheter have been removed. He is voiding without difficulties. He will be discharged to home today in stable condition with scheduled follow-up in my clinic in 1 week. Status: Acute Qualifiers: Presence of rupture: without rupture Qualified Code(s): I71.4 - Abdominal aortic aneurysm, without rupture Reason for Visit Reason for Visit: AAA Physical Exam Resp: COMMON NORMALS: normal respiratory effort and clear to auscultation bilaterally AUSCULTATION: clear to auscultation bilaterally Cardio: COMMON NORMALS: regular rate RATE: regular rate RHYTHM: abnormal rhythm irregularly irregular GI: INSPECTION: Yes central obesity AUSCULTATION: Yes normoactive bowel sounds Extremity: OTHER: No clubbing, cyanosis, or edema. Groins are clean and dry. Right groin incision is well approximated. Surgical dressings were removed and new dressings applied. Urinary Catheter Management: Rendon: Cath Placed During This Visit: yes, but has since been removed by the nurse Reason for Continuing Indwelling Catheter: Decision to DC Catheter Date Urinary Catheter Removed: 09/17/21 Time Urinary Catheter Discontinued: 19:51 Discharge Data Studies Completed and Pending Pending at discharge Category Date Time Status PANEL INSTALLER request for service Routine Exams 09/17/21 06:05 Ordered Basic Metabolic Panel AM LABS Lab 09/18/21 06:10 Received Leukocyte Reduced RBC Routine Lab 09/11/21 10:50 Results Type and Screen Routine Lab 09/11/21 10:50 Results Laboratory Results WBC 14.0 10^3/uL (4.0-10.0) H 09/18/21 06:10 RBC 4.50 10^6/uL (4.1-5.3) 09/18/21 06:10 Hgb 14.1 g/dL (11.7-16.6) 09/18/21 06:10 Hct 45.2 % (42.0-52.0) 09/18/21 06:10 MCV 100.4 fl (80-94) H 09/18/21 06:10 MCH 31.3 pg (28.0-34.0) 09/18/21 06:10 MCHC 31.2 g/dL (30.0-36.0) 09/18/21 06:10 RDW 16.2 % (12.1-15.1) H 09/18/21 06:10 Plt Count 194 10^3/cmm (130-400) 09/18/21 06:10 MPV 11.5 fL (7.4-10.4) H 09/18/21 06:10 Neut % (Auto) 79.4 % 09/18/21 06:10 Lymph % (Auto) 7.7 % 09/18/21 06:10 [place] % (Auto) 12.3 % 09/18/21 06:10 Eos % (Auto) 0.0 % 09/18/21 06:10 Baso % (Auto) 0.2 % 09/18/21 06:10 Neut # (Auto) 11.09 10^3/uL (1.8-7.7) H 09/18/21 06:10 Lymph # (Auto) 1.1 10^3/uL (0.8-4.8) 09/18/21 06:10 [place] # (Auto) 1.7 10^3/uL (0.2-0.9) H 09/18/21 06:10 Eos # (Auto) 0.0 10^3/uL (0.0-0.8) 09/18/21 06:10 Baso # (Auto) 0.0 10^3/uL (0.0-0.1) 09/18/21 06:10 Nucleated RBC % (auto) 0 % 09/18/21 06:10 Nucleated RBCs # 0.0 /100WBC 09/18/21 06:10 Sodium 138 mmol/L (136-145) 09/11/21 10:50 Potassium 4.8 mmol/L (3.5-5.1) 09/11/21 10:50 Chloride 103 mmol/L (98-107) 09/11/21 10:50 Carbon Dioxide 26 mmol/L (22-29) 09/11/21 10:50 Anion Gap 13.8 (5-19) 09/11/21 10:50 BUN 14 mg/dL (8-23) 09/11/21 10:50 Creatinine 0.7 mg/dL (0.7-1.2) 09/11/21 10:50 GFR Calculation 113.2 mL/min (90-130) 09/11/21 10:50 Glucose 82 mg/dL (65-115) 09/11/21 10:50 Calculated Osmolality 286 mOsm/kg (285-295) 09/11/21 10:50 Calcium 9.9 mg/dL (8.5-10.5) 09/11/21 10:50 Urine Color [place] (Yellow) 09/11/21 10:53 Urine Appearance Clear (CLEAR) 09/11/21 10:53 Urine pH 7 (5-7) 09/11/21 10:53 Ur Specific [place] 1.010 (1.005-1.030) 09/11/21 10:53 Urine Protein Trace (Negative) 09/11/21 10:53 Urine Glucose (UA) Norm (Normal) 09/11/21 10:53 Urine Ketones Negative (Negative) 09/11/21 10:53 Urine Blood Neg (Negative) 09/11/21 10:53 Urine Nitrate Negative (Negative) 09/11/21 10:53 Urine Bilirubin 1+ (Negative) H 09/11/21 10:53 Urine Urobilinogen 8 mg/dL (Negative) H 09/11/21 10:53 Ur Leukocyte Esterase Trace (Negative) H 09/11/21 10:53 Urine RBC 0-4 /hpf (0-2) H 09/11/21 10:53 Urine WBC 0-4 /hpf (0-5) H 09/11/21 10:53 Ur Squamous Epith Cells 0-4 /hpf (0-5) H 09/11/21 10:53 Amorphous Sediment Not Reportable 09/11/21 10:53 Urine Bacteria None /hpf (NONE) 09/11/21 10:53 Blood Type O Positive 09/11/21 10:50 Rho(D) Type Positive 09/11/21 10:50 Antibody Screen Negative 09/11/21 10:50 Crossmatch See Detail 09/11/21 10:50 Procedures Performed Endovascular abdominal aortic aneurysm repair on September 17, 2021 Vitals Last Vital Signs Temp 98.1 F 09/18/21 05:15 Pulse 72 09/18/21 06:15 Resp 26 H 09/18/21 06:15 BP 111/82 09/18/21 06:15 Pulse Ox 92 09/18/21 06:15 Discharge Plan Discharge Patient Disposition: Home Condition: Stable Prescriptions: New hydrocodone-acetaminophen 5-325 mg Tablet 1 tab PO Q6H PRN (Reason: Moderate Pain) Qty: 12 0RF cephalexin 500 mg capsule 500 mg PO Q8H Qty: 6 0RF Continued tamsulosin 0.4 mg capsule 0.4 mg PO DAILY 0RF lisinopril 5 mg tablet 5 mg PO QAM 0RF Hold Instructions: Resume on 04/06/21. spironolactone 25 mg tablet 12.5 mg PO DAILY 0RF sildenafil (pulm.hypertension) 20 mg tablet 20 mg PO DAILY Qty: 30 2RF metoprolol succinate 25 mg tablet extended release 24 hr 25 mg PO DAILY Qty: 90 2RF furosemide 20 mg tablet 10 mg PO QAM PRN (Reason: edema) Qty: 90 2RF allopurinol 100 mg tablet 100 mg PO QAM 0RF ferrous sulfate 325 mg (65 mg iron) tablet 325 mg PO EVERY OTHER DAY 0RF Rx Instructions: at noon finasteride 5 mg tablet 5 mg PO DAILY 0RF rosuvastatin 40 mg tablet 40 mg PO DAILY 0RF Spiriva with HandiHaler 18 mcg capsule, w/inhalation device 1 cap INHALATION DAILY 0RF Hold Instructions: Resume on 04/06/21. Eliquis 5 mg tablet 5 mg PO BID 0RF Hold Instructions: Resume on 10/20/20. budesonide-formoterol [Symbicort] 160-4.5 mcg/actuation Hfa Aerosol Inhaler 2 puff INHALATION DAILY 0RF bumetanide 1 mg tablet 1 mg PO DAILY Qty: 90 1RF albuterol sulfate 90 mcg/actuation aerosol powdr breath activated 1 inh INHALATION Q6H PRN (Reason: shortness of breath or wheezing) Qty: 1 3RF aspirin 81 mg tablet 81 mg PO DAILY 0RF Discharge Orders: Discharge Order (Routine); Ordered 09/18/21 Ordered By: Abdifatah Garcia Referrals: Abdifatah Garcia MD [Physician] - 1 week Discharge Diet: Usual diet Discharge Activity: Limit activity as instructed Patient Instructions: Opioid Safety, Post Anesthesia Care Activity Restrictions/Additional Instructions: May remove bandage tomorrow May begin daily showers tomorrow Dry groin area completely and thoroughly after showering. Recover right groin incision with gauze which may be held in place with underwear. Do this daily for the next week. No swimming or tub baths x 2 weeks No ointments on incision Report drainage, redness, heat, increased pain, or swelling to clinic Discharge Attestations Time Spent in Discharge Care*: less than 30 min Specific Discharge Activities: educating patient, discussing with caseworker protective services/social workers/dc planners, documenting/other paperwork and evaluating patient/reviewing data Status at Discharge: Cognitive status at discharge: cognitively intact, Behavioral status at discharge: cooperative, Functional status at discharge: independent ambulation, Overall status at discharge: patient is back to baseline Quality Metrics Clinical Quality Measures [ No reported AMI, CVA or VTE this stay] Coding Level of Care Code Acute Chg DC note Diagnoses Abdominal aortic aneurysm I71.4 Presence of rupture: without rupture
[2021-09-18 06:52] LABS: Blood Urea Nitrogen 19 mg/dL (8-23); Calcium 9.3 mg/dL (8.5-10.5); Carbon Dioxide 20 mmol/L (22-29); Chloride 104 mmol/L (98-107); Glucose 159 mg/dL (65-115); Osmolality Calculated 286 mOsm/kg (285-295); Sodium 135 mmol/L (136-145)
[2021-09-18] MEDS: FUROsemide 20 mg Tablet 10 MG PO (08:10)
[2021-09-18] MEDS: tamsulosin 0.4 mg Capsule PO (08:10)
[2021-09-18] MEDS: pantoprazole DR 40 mg Tablet PO (08:12)
[2021-09-18] MEDS: spironolactone 25 mg Tablet 12.5 MG PO (08:12)
[2021-09-18] MEDS: finasteride 5 mg Tablet PO (08:12)
[2021-09-18] MEDS: allopurinol 100 mg Tablet PO (08:12)
[2021-09-18] MEDS: metoprolol succinate ER (24 HR) 25 mg Tablet PO (08:12)
[2021-09-18] MEDS: lisinopril 5 mg Tablet PO (08:12)
[2021-09-18] MEDS: bumetanide 1 mg Tablet PO (08:12)
--- NOTE | 2021-09-18 10:16 | PC.NURSE ---
Patient up ambulating today, all dressings dry and intact.
--- NOTE | 2021-09-18 11:02 | PC.NURSE ---
Patient discharged, all IV's removed. Discharge instructions, restrictions, new medications, all given to patient. Patient voiced understanding.
== END 2021-09-18 11:00 | disposition home or self-care (01) | DRG 269 ==
LOC: ICU 11:19
PROVIDERS: Admitting Provider Thoracic Surgery (Cardiothoracic Vascular Surgery); PCP Nurse Practitioner Family; Visit Provider Thoracic Surgery (Cardiothoracic Vascular Surgery)
PROC: 04V03ZZ Restriction of Abdominal Aorta, Percutaneous Approach (ICD-10-PCS; principal; 2021-09-17 07:00)
DX: I71.4 Abdominal aortic aneurysm, without rupture (principal); I50.22 Chronic systolic (congestive) heart failure; I48.20 Chronic atrial fibrillation, unspecified; I42.8 Other cardiomyopathies; I11.0 Hypertensive heart disease with heart failure; Z95.810 Presence of automatic (implantable) cardiac defibrillator; J44.9 Chronic obstructive pulmonary disease, unspecified; E78.5 Hyperlipidemia, unspecified; D69.6 Thrombocytopenia, unspecified; F17.210 Nicotine dependence, cigarettes, uncomplicated; Z79.01 Long term (current) use of anticoagulants; Z79.82 Long term (current) use of aspirin; Z79.51 Long term (current) use of inhaled steroids
CPT/HCPCS: 36415; 80048; 81001; 85025; 86850; 86900; 86920; 94002; 94664; 94799; C1725; C1760; C1769; C1773; C1887; C1894; J0171; J0690; J1100; J1644; J2370; J2405; J2704; J2720; J3010; J3490; P9041; Q9967

== ENCOUNTER → 2021-09-26 10:15 | Outpatient (BNVA) | payer MEDICARE, MEDICAID, SELFPAY | PROVIDERS: PCP Nurse Practitioner Family; Visit Provider Thoracic Surgery (Cardiothoracic Vascular Surgery) | DX: Z98.890 Other specified postprocedural states (principal) | CPT/HCPCS: 99024 ==

== ENCOUNTER → 2021-11-22 11:10 | Outpatient (BNVA) | payer MEDICARE, MEDICAID, SELFPAY | PROVIDERS: Visit Provider Internal Medicine Cardiovascular Disease | DX: Z45.02 Encounter for adjustment and management of automatic implantable cardiac defibrillator (principal) | CPT/HCPCS: 93283 ==

== ENCOUNTER 2021-11-27 08:15 | Outpatient (CLI) | payer MEDICARE, MEDICAID, SELFPAY ==
--- NOTE | 2021-11-27 09:00 | CT_ITS ---
WS: [id number] CT ANGIOGRAPHY abdomen and pelvis. HISTORY: AAA, follow-up repair. TECHNIQUE: Noncontrast CT first performed. CT angiogram is performed during IV injection. Reformation and MIP images reviewed. All CT scans at [facility] use at least one of these dose optimizati on techniques: automated exposure control; mA and/or kV adjustment per patient size (includes targete d exams where dose is matched to clinical indication); or iterative reconstruction. CONTRAST: Omnipaque 350; 95 mL IV. DLP: 2611.27 mGy.cm COMPARISON: 07/17/2021 Chronic emphysema at the lung bases. There are multiple small thin wall cyst in the RIGHT lower lobe. Mild pleural thickening posteriorly. Mild enlargement of the heart chambers. Small hiatal hernia. Abdominal aorta: Endovascular aortic iliac aortic repair has been performed since the prior study. Gr aft begins at the level of the renal arteries with short legs extending into the common iliac arterie s. Graft is centrally positioned within the aorta. Diameter of the [place] aneurysm is 5.5 cm which is only minimally increased since the prior study. There is no endovascular leak identified on the [place] rial or the delayed phase in the main aorta. No periaortic hematoma. Normal variant celiac axis. The hepatic artery arises directly from the aorta. Very small amount of plaque in narrowing proximally. T he splenic artery arise separately the small amount of calcified plaque. SMA is patent. Renal arterie s are also normally enhance but there is a small amount of plaque within each renal artery. Common iliac arteries are patent. Atherosclerotic plaque continues into the internal and external kate ac arteries although no occlusions. No high-grade stenosis. There is a very tiny amount of contrast j ust posterior to the distal RIGHT common iliac leg stent suspicious for very minimal type I endoleak. This should be further evaluated on follow-up examinations. This is at the site of the very distal i liac aneurysm. Mild slightly lobular appearance of the liver suggesting cirrhosis. Hepatic and splenic granulomatous . Tricuspid regurgitation into hepatic veins. Normal pancreas and adrenal glands. Kidneys are normall y enhancing. No infarct. No adenopathy or ascites. No GI tract obstruction. Normal appendix. Distal d iverticulosis. Contracted urinary bladder with mild wall thickening. There is also prostate gland enl argement with calcifications. Postsurgical changes are noted along the LEFT inguinal region. CT/CT angio abdomen pelvis [id number] IMPRESSION: 1. Since the prior study there has been interval endovascular graft repair of the abdominal aortic aneurysm. No increase in size of the [place] aneurysm. No e ndovascular leak within the abdominal aorta. 2. Very small type I endovascular leak is suspected at the very distal RIGHT c ommon iliac artery graft. Recommend continued close follow-up to be sure this d oes not enlarge. 3. Normal enhancement of the kidneys. 4. Mild cirrhosis.
[2021-11-27 09:14] LABS: Blood Urea Nitrogen 10 mg/dL (8-23)
[2021-11-27] MEDS: iohexol 350 mg/mL 100 mL Btl IV (09:27)
== END 2021-11-27 08:16 | disposition home or self-care (01) ==
PROVIDERS: Visit Provider Thoracic Surgery (Cardiothoracic Vascular Surgery)
DX: I71.4 Abdominal aortic aneurysm, without rupture (principal)
CPT/HCPCS: 74174; 82565; 84520

== ENCOUNTER → 2021-11-28 09:17 | Outpatient (BNVA) | payer MEDICARE, MEDICAID, SELFPAY | PROVIDERS: Visit Provider Thoracic Surgery (Cardiothoracic Vascular Surgery) | DX: Z98.890 Other specified postprocedural states (principal) | CPT/HCPCS: 99024 ==

== ENCOUNTER → 2022-02-04 13:50 | Outpatient (BNVA) | payer MEDICARE, MEDICAID, SELFPAY | PROVIDERS: Visit Provider Internal Medicine Cardiovascular Disease | DX: I42.8 Other cardiomyopathies (principal); I48.92 Unspecified atrial flutter; Z79.01 Long term (current) use of anticoagulants; I71.4 Abdominal aortic aneurysm, without rupture; Z95.810 Presence of automatic (implantable) cardiac defibrillator; F17.210 Nicotine dependence, cigarettes, uncomplicated | CPT/HCPCS: 99214 ==

== ENCOUNTER → 2022-03-14 11:15 | Outpatient (BNVA) | payer MEDICARE, MEDICAID, SELFPAY | PROVIDERS: Visit Provider Internal Medicine Cardiovascular Disease | DX: Z45.02 Encounter for adjustment and management of automatic implantable cardiac defibrillator (principal) | CPT/HCPCS: 93283 ==

== ENCOUNTER 2022-03-19 11:54 | Inpatient (IN) | payer MEDICARE, MEDICAID, SELFPAY ==
[2022-03-19] VITALS (11 sets, daily range): BP systolic 92–116; BP diastolic 62–85; PULSE 78–127; RESP 22–30; TEMP 36.4–36.6; O2SAT 90–97; BMI 36.2
--- NOTE | 2022-03-19 12:42 | ECG_ITS ---
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 Measurements Intervals [place] Rate: 106 P: ID: QRS: -72 QRSD: 112 T: 93 QT: 365 QTc: 486 Interpretive Statements ATRIAL FIBRILLATION WITH RAPID VENTRICULAR RESPONSE LOW QRS VOLTAGE IN PRECORDIAL LEADS [QRS DEFLECTION < 1.0 mV IN CHEST LEADS] INFERIOR MYOCARDIAL INFARCTION , PROBABLY OLD [40+ ms Q WAVE AND/OR ST/T ABNORMALITY IN II/aVF] ANTEROLATERAL MYOCARDIAL INFARCTION , OF INDETERMINATE AGE [40+ ms Q WAVE IN I/aVL/V3-V6] Compared to ECG 09/11/2021 11:26:23 Ventricular-paced complex(es) or rhythm no longer present Myocardial infarct finding still present Electronically Signed On 03-20-2022 11:37:52 BLADE BALANCER by Rossy Navarro M.D. [id number]
--- NOTE | 2022-03-19 13:41 | ED_ITS ---
HPI - Wound/Laceration General: Chief Complaint: Wound/Laceration Stated Complaint: Sent from heart care, swelling rt leg Time Seen by Provider: 03/19/22 13:39 History of Present Illness: Mr. Weaver is a 66-year-old gentleman with significant past medical history of hypertension, hyperlipidemia, atrial fibrillation, nonischemic cardiomyopathy, COPD, status post EVAR, CHF presenting to the emergency department due to concern over right lower extremity cellulitis and heart failure exacerbation. He reports onset of symptoms 3 to 4 days ago gradually. Increase shortness of breath and lower extremity edema with redness and worse edema on the right associated with increased pain. Subjective generalized malaise. No other specific focal source of infection. Denies history of diabetes. Intensity symptoms is moderate. Course is worsened. Was seen at clinic today and referred to the emergency department for admission for treatment of cellulitis and CHF exacerbation. Onset (ago): day(s) Location: other Associated symptoms: Reports other Review of Systems General: Reports: 10 or more systems reviewed and unremarkable except in HPI and below PFSH ED PFSH: Medical History Abdominal aortic aneurysm Atrial fibrillation Sotalol discontinued. Placed on amiodarone and metoprolol with adequate rate control CHF (congestive heart failure) Cirrhosis Colon polyps COPD (chronic obstructive pulmonary disease) Stable Hyperlipidemia Hypertension Nonischemic cardiomyopathy 03/28/2021: LVEF 20 to 25%, Medtronic ICD implanted 12/20/2018 Thrombocytopenia Surgical History H/O hernia repair L inguinal hernia repair History of implantable cardioverter-defibrillator (ICD) placement 12/20/18 History of orthopedic surgery Repair heel fracture Status post colonoscopy (10/18/20) Family History Mother Dementia Father CAD (coronary artery disease) Social History Smoking and tobacco status: current every day smoker cigarettes Packs smoked per day: 0.5 Years cigarettes smoked: 46 Alcohol intake: current Alcohol intake frequency: other Physical Exam Const: COMMON NORMALS: alert GENERAL APPEARANCE: cooperative, well developed and ill appearing (somewhat) HENMT: COMMON NORMALS: normocephalic and atraumatic HEAD & SCALP: normocephalic and atraumatic THROAT: posterior oropharynx normal Eye: COMMON NORMALS: conjunctivae normal CONJUNCTIVA: Yes conjunctivae normal SCLERA: sclerae normal Neck/C-Spine: COMMON NORMALS: supple GENERAL: Yes trachea midline Resp: COMMON NORMALS: clear to auscultation bilaterally EFFORT & INSPECTION: Yes able to speak in complete sentences and Yes tachypneic AUSCULTATION: clear to auscultation bilaterally Cardio: COMMON NORMALS: regular rhythm RATE: tachycardic RHYTHM: regular rhythm GI: COMMON NORMALS: Soft to palpation PALPATION: Yes Soft to palpation and No Tenderness to palpation present (GI) PERCUSSION: normal to percussion Extremity: GENERAL: Yes normal exam except as noted and Yes edema (significant lower extremity edema of R with cellulitic changes) Neuro: COMMON NORMALS: moves all extremities SENSORIUM/ORIENTATION: Yes alert and No Orientation impaired Psych: COMMON NORMALS: mental status grossly normal and Normal thought process present THOUGHT PROCESS: Normal thought process present Course Vital Signs: Vital signs: Vital Signs Temperature 97.5 F L 03/22/22 04:26 Pulse Rate 85 03/22/22 10:34 Respiratory Rate 18 03/22/22 08:38 Blood Pressure 111/70 03/22/22 10:34 Pulse Oximetry 93 03/22/22 10:34 Oxygen Delivery Me thod 03/22/22 08:38 Oxygen Flow Rate 3 03/22/22 06:30 MDM - Wound/Laceration Medical Decision Making 66-year-old gentleman presenting with lower extremity swelling and concern for cellulitis. Patient is mildly tachycardic and somewhat ill however nontoxic on exam. Exam as above otherwise. EKG shows atrial fibrillation with interventricular conduction delay, no STEMI. Labs with no leukocytosis, hemoglobin is normal. Metabolic panel without significant derangement. Lactic acid is mildly elevated as his total bilirubin and ALT. 2-hour delta troponin is negative. BNP elevated. No evidence of arterial insufficiency or DVT on ultrasound studies. Arterial ultrasound obtained given discoloration of the feet and diminished pulses. Abdomen and pelvis with mild anasarca, infrarenal stent without evidence of endoleak, cirrhosis. Antibiotic given. The results of ED evaluation were discussed with the patient including plan for admission due to requirement for level of care not available if discharged to prevent significant worsening/deterioration. Patient agreeable with plan. Discussed with hospitalist service who was agreeable to admit patient. Medical Records I reviewed the patient's medical records. Lab Data I reviewed the patient's lab results. 03/22/22 03:02 03/22/22 03:02 Radiology Impressions Duplex Scan Lower Extremity Artery 03/19/22 13:52 IMPRESSION: No significant stenosis or occlusion. Abdomen/Pelvis CT 03/19/22 14:49 IMPRESSION: 1. Morphological changes of the liver consistent with cirrhosis. Small volume ascites in the lower abdomen which may reflect portal hypertension. 2. Mild anasarca involving the soft tissues of the abdomen/lower extremities. 3. 5.7 cm infrarenal abdominal aortic aneurysm with aorto bi-iliac stent and no evidence of endoleak. 4. Cholelithiasis. COMMENTS: Consistent with the [place] [employer]'s Incidental Findings Committee white paper (J Am Ari Radiol 2018): Any incidental renal lesion less than 1 cm or classified as too small to characterize, or any incidental cystic renal lesion characterized as simple-appearing, is likely benign. No follow-up imaging is recommended for these lesions per consensus recommendations based on imaging criteria. Laboratory Results WBC 8.4 10^3/uL (4.0-10.0) 03/19/22 13:40 RBC 5.38 10^6/uL (4.1-5.3) H 03/19/22 13:40 Hgb 15.9 g/dL (11.7-16.6) 03/19/22 13:40 Hct 51.4 % (42.0-52.0) 03/19/22 13:40 MCV 95.5 fl (80-94) H 03/19/22 13:40 MCH 29.6 pg (28.0-34.0) 03/19/22 13:40 MCHC 30.9 g/dL (30.0-36.0) 03/19/22 13:40 RDW 19.2 % (12.1-15.1) H 03/19/22 13:40 Plt Count 142 10^3/cmm (130-400) 03/19/22 13:40 MPV 11.2 fL (7.4-10.4) H 03/19/22 13:40 Neut % (Auto) 69.3 % 03/19/22 13:40 Lymph % (Auto) 18.3 % 03/19/22 13:40 [place] % (Auto) 11.0 % 03/19/22 13:40 Eos % (Auto) 0.2 % 03/19/22 13:40 Baso % (Auto) 0.7 % 03/19/22 13:40 Neut # (Auto) 5.79 10^3/uL (1.8-7.7) 03/19/22 13:40 Lymph # (Auto) 1.5 10^3/uL (0.8-4.8) 03/19/22 13:40 [place] # (Auto) 0.9 10^3/uL (0.2-0.9) 03/19/22 13:40 Eos # (Auto) 0.0 10^3/uL (0.0-0.8) 03/19/22 13:40 Baso # (Auto) 0.1 10^3/uL (0.0-0.1) 03/19/22 13:40 Nucleated RBC % (auto) 0 % 03/19/22 13:40 Nucleated RBCs # 0.0 /100WBC 03/19/22 13:40 Sodium 139 mmol/L (136-145) 03/19/22 13:40 Potassium 3.9 mmol/L (3.5-5.1) 03/19/22 13:40 Chloride 102 mmol/L (98-107) 03/19/22 13:40 Carbon Dioxide 23 mmol/L (22-29) 03/19/22 13:40 Anion Gap 17.9 (5-19) 03/19/22 13:40 BUN 12 mg/dL (8-23) 03/19/22 13:40 Creatinine 1.1 mg/dL (0.7-1.2) 03/19/22 13:40 GFR Calculation 67.2 mL/min (90-130) L 03/19/22 13:40 Glucose 129 mg/dL (65-115) H 03/19/22 13:40 Calculated Osmolality 289 mOsm/kg (285-295) 03/19/22 13:40 Lactic Acid 2.8 mmol/L (0.5-2.2) H 03/19/22 13:40 Lactic Acid (Sepsis) 2.6 mmol/L (0.5-2.2) H 03/19/22 16:50 Calcium 8.6 mg/dL (8.5-10.5) 03/19/22 13:40 Total Bilirubin 3.4 mg/dL (0.15-1.2) H 03/19/22 13:40 AST 32 U/L (0-40) 03/19/22 13:40 ALT 74 U/L (0-41) H 03/19/22 13:40 Alkaline Phosphatase 211 U/L (40-130) H 03/19/22 13:40 Troponin T Baseline 20 ng/L (0-15) H 03/19/22 13:40 Troponin T 120 Minute 19.13 ng/L (0-15) H 03/19/22 16:50 Delta Troponin T -0.87 ABS# (0-10) L 03/19/22 16:50 NT-Pro-B Natriuret Pep 5314 pg/mL (0-125) H 03/19/22 13:40 Total Protein 6.5 g/dL (6.6-8.7) L 03/19/22 13:40 Albumin 3.4 g/dL (3.5-5.2) L 03/19/22 13:40 Globulin 3.1 g/dL (1.3-4.6) 03/19/22 13:40 Discharge Plan Discharge Patient Disposition: Admitted As Inpatient Admit Provider: Ronald Banks Clinical Impression: Cellulitis, Atrial fibrillation, Acute exacerbation of CHF (congestive heart failure) Condition: Fair Discharge Diet: Cardiac Discharge Activity: Limit activity as instructed Coding Level of Care Code ED Break Off Worker for Amaliag Rajiv
--- NOTE | 2022-03-19 13:52 | USR_ITS ---
PROCEDURE INFORMATION: Exam: US Duplex Lower Extremity Arteries Exam date and time: 03/19/2022 2:45 PM Age: 66 years old Clinical indication: Edema, localized and swelling (edema) of limb; Lower extremity, bilateral; Additional info: Discoloration, swelling TECHNIQUE: Imaging protocol: Real-time ultrasound scan of the arteries of the bilateral lower extremities with 2-D adamson scale, color Doppler flow and spectral waveform analysis. Images documented and saved. COMPARISON: CT angio abdomen pelvis [id number] 11/27/2021 9:17 AM FINDINGS: Right common femoral artery: No occlusion or significant stenosis. Right superficial femoral artery: No occlusion or significant stenosis. Right popliteal artery: No occlusion or significant stenosis. Right calf/foot arteries: No occlusion or significant stenosis in the visualized arteries. Dorsalis pedis artery is patent. Left common femoral artery: No occlusion or significant stenosis. Left superficial femoral artery: No occlusion or significant stenosis. Left popliteal artery: No occlusion or significant stenosis. Left calf/foot arteries: No occlusion or significant stenosis in the visualized arteries. Dorsalis pedis artery is patent. US/CV arterial duplex [facility] [id number] IMPRESSION: No significant stenosis or occlusion.
--- NOTE | 2022-03-19 13:52 | USCV_ITS ---
Cheko Weaver Age: 66 Gender: M : 1955 Exam Date: 03/19/2022 14:28 Ordering Phys: Hossein Whiting MD Technologist: RIKA [place] [facility] [place]: Pain and Swelling HISTORY: Patient has. Edema. Swelling. PROCEDURES: Venous duplex imaging was performed in only the right lower extremity. The following venous structures were evaluated: common femoral vein, profunda vein, proximal portion of the greater saphenous vein, superficial femoral vein, and the popliteal vein. In addition, the posterior tibial and peroneal trunk were evaluated. On the right side, the common femoral, superficial femoral, profunda femoral, popliteal, posterior tibial, greater saphenous veins and the peroneal trunk were identified and interrogated in the standard fashion. FINDINGS: Normal 2-D Doppler and augmentation and compressibility throughout the lower extremity venous structures. Additional imaging through the proximal calf veins also reveals no thrombus. Limited evaluation of the greater saphenous vein is patent with no thrombus. There is subcutaneous right lower extremity edema noted. CONCLUSIONS No DVT right lower extremity. Dr. Rachel Luis DO (Electronically Signed) Final Date: 19 March 2022 16:16 S
[2022-03-19 13:53] LABS: Basophils # 0.1 10^3/uL (0.0-0.1); Basophils % 0.7 %; Eosinophils % 0.2 %; Hematocrit 51.4 % (42.0-52.0); Hemoglobin 15.9 g/dL (11.7-16.6); Lymphocytes # 1.5 10^3/uL (0.8-4.8); Lymphocytes % 18.3 %; Mean Corpuscular HGB Conc 30.9 g/dL (30.0-36.0); Mean Corpuscular Hemoglobin 29.6 pg (28.0-34.0); Mean Corpuscular Volume 95.5 fl (80-94); Mean Platelet Volume 11.2 fL (7.4-10.4); Monocytes # 0.9 10^3/uL (0.2-0.9); Neutrophils # 5.79 10^3/uL (1.8-7.7); Neutrophils % 69.3 %; Nucleated Red Blood Cells % 0 %; Platelet Count 142 10^3/cmm (130-400); Red Blood Count 5.38 10^6/uL (4.1-5.3); Red Cell Distribution Width 19.2 % (12.1-15.1); White Blood Count 8.4 10^3/uL (4.0-10.0)
[2022-03-19 14:22] LABS: Lactic Sepsis W/Reflex 2.8 mmol/L (0.5-2.2)
[2022-03-19 14:23] LABS: Troponin(5th) Baseline 20 ng/L (0-15)
[2022-03-19] MEDS: clindamycin 600 MG/50 ML PREMIX 100 MG IV (14:23)
[2022-03-19 14:27] LABS: Alanine Aminotransferase 74 U/L (0-41); Albumin Level 3.4 g/dL (3.5-5.2); Alkaline Phosphatase 211 U/L (40-130); Anion Gap 17.9 (5-19); Aspartate Amino Transferase 32 U/L (0-40); Blood Urea Nitrogen 12 mg/dL (8-23); Calcium 8.6 mg/dL (8.5-10.5); Carbon Dioxide 23 mmol/L (22-29); Chloride 102 mmol/L (98-107); Globulin 3.1 g/dL (1.3-4.6); Glomerular Filtration Rate 67.2 mL/min (90-130); Glucose 129 mg/dL (65-115); NT Pro B Type Natriuretic Pept 5314 pg/mL (0-125); Osmolality Calculated 289 mOsm/kg (285-295); Potassium 3.9 mmol/L (3.5-5.1); Sodium 139 mmol/L (136-145); Total Bilirubin 3.4 mg/dL (0.15-1.2); Total Protein 6.5 g/dL (6.6-8.7)
--- NOTE | 2022-03-19 14:49 | CTR_ITS ---
PROCEDURE INFORMATION: Exam: CT Abdomen And Pelvis With Contrast Exam date and time: 03/19/2022 3:32 PM Age: 66 years old Clinical indication: Mass, lump, or swelling; Additional info: Lower extremity and abd swelling, elevated t bili TECHNIQUE: Imaging protocol: Computed tomography of the abdomen and pelvis with contrast. Radiation optimization: All CT scans at this facility use at least one of these dose optimization techniques: automated exposure control; mA and/or kV adjustment per patient size (includes targeted exams where dose is matched to clinical indication); or iterative reconstruction. Contrast material: OMNI 350; Contrast volume: 100 ml; Contrast route: INTRAVENOUS (IV); COMPARISON: CT angio abdomen pelvis [id number] 11/27/2021 9:17 AM RADIATION DOSE METRICS: Total DLP (mGy-cm): 1050.6 FINDINGS: Liver: Slightly nodular contour and hypertrophy of the caudate lobe and left hepatic lobe with asymmetric atrophy of the right hepatic lobe. These morphological changes are consistent with cirrhosis. No evidence of mass. Gallbladder and bile ducts: Punctate gallstone measuring 5 mm in size noted in the gallbladder neck. No gallbladder distention or wall thickening. No ductal dilation. Pancreas: Normal. No ductal dilation. Spleen: Calcified granulomas noted in the spleen. No splenomegaly. Adrenal glands: Normal. No mass. Kidneys and ureters: Subcentimeter cyst noted in the left kidney. No hydronephrosis. Stomach and bowel: No obstruction. No mucosal thickening. Appendix: No evidence of appendicitis. Intraperitoneal space: Small volume ascites in the lower abdomen. No free air. No significant fluid collection. Vasculature: 5.7 cm infrarenal abdominal aortic aneurysm noted. There is an aorto bi-iliac stent with no evidence of endoleak. Lymph nodes: Unremarkable. No enlarged lymph nodes. Urinary bladder: Unremarkable as visualized. Reproductive: Unremarkable as visualized. Bones/joints: No acute fracture. Soft tissues: Mild anasarca. CT/CT abdomen pelvis w con* [id number] IMPRESSION: 1. Morphological changes of the liver consistent with cirrhosis. Small volume ascites in the lower abdomen which may reflect portal hypertension. 2. Mild anasarca involving the soft tissues of the abdomen/lower extremities. 3. 5.7 cm infrarenal abdominal aortic aneurysm with aorto bi-iliac stent and no evidence of endoleak. 4. Cholelithiasis. COMMENTS: Consistent with the [employer]'s Incidental Findings Committee white paper (J Am Ari Radiol 2018): Any incidental renal lesion less than 1 cm or classified as too small to characterize, or any incidental cystic renal lesion characterized as simple-appearing, is likely benign. No follow-up imaging is recommended for these lesions per consensus recommendations based on imaging criteria.
--- NOTE | 2022-03-19 14:53 | ECG_ITS ---
[facility] Test Date: 2022-03-19 Pat Name: Cheko Weaver Department: Room: Gender: Male Backfiller: : 1955 Requested By: Hossein Whiting Order Number: [id number] Bustillo MD: Rossy Navarro M.D. Measurements Intervals [place] Rate: 111 P: TN: QRS: -67 QRSD: 119 T: 94 QT: 383 QTc: 522 Interpretive Statements ATRIAL FIBRILLATION WITH RAPID VENTRICULAR RESPONSE WITH ABERRANT CONDUCTION OR VENTRICULAR PREMATURE COMPLEXES LOW QRS VOLTAGE IN PRECORDIAL LEADS [QRS DEFLECTION < 1.0 mV IN CHEST LEADS] POSSIBLE RIGHT VENTRICULAR CONDUCTION DELAY [RSR (QR) IN V1/V2] ANTERIOR MYOCARDIAL INFARCTION , PROBABLY OLD [40+ ms Q WAVE AND/OR ST/T ABNORMALITY IN V3/V4] Compared to ECG 03/19/2022 12:42:57 Ventricular premature complex(es) now present Aberrant conduction of supraventricular beat(s) now present Myocardial infarct finding still present Electronically Signed On 03-20-2022 11:41:20 BORING MACHINE OPERATOR VERTICAL by Rossy Navarro M.D. [id number]
[2022-03-19 15:34] LABS: Reflex Lactate Order REFLEX LACTIC ORDERD
[2022-03-19] MEDS: iohexol 350 mg/mL 500 mL Btl (per mL) IV (15:48)
--- NOTE | 2022-03-19 16:57 | PM.HP ---
Providers/Chief Complaint Chief Complaint: Sent from heart care, swelling rt leg History of Present Illness Cheko Weaver is a 66 year old male who has been sent from the [facility] cardiology clinic for worsening of swelling of his legs with concern for cellulitis. Patient has history of nonischemic cardiomyopathy, COPD, atrial fibrillation, status post EVAR. Patient is stating that for last 3 days his leg swelling has worsened, he does smoke on and off, lives with his daughter, he has not noticed any fever, worsening of chest pain. Endorsing weight gain, bloating, abdominal distention and worsening of edema of legs. In the ER he has been diagnosed with acute CHF exacerbation, purulent cellulitis of right leg with venous visit dermatitis CT abdomen pelvis consistent with liver ascites, AAA, no signs of DVT on venous Doppler, arterial duplex did not show stenosis or occlusion In the ER he has received clindamycin Review of Systems Const: Reports: chills Eyes: Denies: change in vision ENMT: Denies: throat pain Card: Reports: swelling of feet/ankles, dyspnea on exertion and orthopnea Resp: Reports: dyspnea GI: Denies: abdominal pain : Denies: urinary frequency Musc: Reports: extremity pain Skin/Breast: Reports: rash Neuro: Denies: headache(s) Psych: Denies: anxiety Endo: Denies: polyuria Cuco/Lymph: Denies: easy bruising All/Imm: Denies: urticaria Medications/Allergies Home Medications Medication Instructions Recorded Confirmed Last Taken Type allopurinol 100 mg tablet 100 mg PO QAM 05/24/19 03/19/22 03/18/22 History ferrous sulfate 325 mg (65 mg 325 mg PO EVERY OTHER DAY 05/24/19 03/19/22 03/18/22 History iron) tablet finasteride 5 mg tablet 5 mg PO DAILY 05/24/19 03/19/22 03/18/22 History rosuvastatin 40 mg tablet 40 mg PO DAILY 05/24/19 03/19/22 03/18/22 History tiotropium bromide 18 mcg capsule 1 cap inhalation DAILY 05/24/19 03/19/22 03/18/22 History with inhalation device (Spiriva with HandiHaler) tamsulosin 0.4 mg capsule 0.4 mg PO DAILY 11/16/20 03/19/22 03/18/22 History budesonide-formoterol HFA 160 2 puff inhalation BID 03/28/21 03/19/22 03/18/22 History mcg-4.5 mcg/actuation aerosol inhaler (Symbicort) albuterol sulfate 90 mcg/actuation 1 inh inhalation Q6H PRN shortness 03/30/21 03/19/22 09/08/21 Rx breath activated powder inhaler of breath or wheezing #1 ea apixaban 5 mg tablet (Eliquis) 5 mg PO BID #180 tabs 09/26/21 03/19/22 03/18/22 Rx sildenafil (pulm.hypertension) 20 20 mg PO DAILY Pulmonary 01/14/22 03/19/22 03/18/22 Rx mg tablet hypertension #30 tabs spironolactone 25 mg tablet 12.5 mg PO DAILY #45 tabs 01/20/22 03/19/22 03/18/22 Rx bumetanide 1 mg tablet 1 mg PO BID #60 tabs 03/14/22 03/19/22 03/18/22 Rx aspirin 81 mg tablet,delayed 81 mg PO DAILY 03/19/22 03/19/22 Unknown History release ciprofloxacin HCl 500 mg tablet 500 mg PO Q12H 03/19/22 03/19/22 03/18/22 History metoprolol succinate 25 mg 25 mg PO DAILY 03/19/22 03/19/22 03/18/22 History tablet,extended release 24 hr Allergies Allergy/AdvReac Type Severity Reaction Status Date / Time No Known Allergies Allergy Verified 03/19/22 14:05 PFSH Acute PFSH: Medical History Abdominal aortic aneurysm Atrial fibrillation Sotalol discontinued. Placed on amiodarone and metoprolol with adequate rate control CHF (congestive heart failure) Cirrhosis Colon polyps COPD (chronic obstructive pulmonary disease) Stable Hyperlipidemia Hypertension Nonischemic cardiomyopathy 03/28/2021: LVEF 20 to 25%, Medtronic ICD implanted 12/20/2018 Thrombocytopenia Surgical History H/O hernia repair L inguinal hernia repair History of implantable cardioverter-defibrillator (ICD) placement 12/20/18 History of orthopedic surgery Repair heel fracture Status post colonoscopy (10/18/20) Family History Mother Dementia Father CAD (coronary artery disease) Social History Smoking and tobacco status: current every day smoker cigarettes Packs smoked per day: 0.5 Years cigarettes smoked: 46 Alcohol intake: current Alcohol intake frequency: other Vitals/I&O/Wt Last Vital Signs Temp 97.8 F 03/19/22 12:34 Pulse 120 H 03/19/22 15:19 Resp 26 H 03/19/22 15:19 BP 116/74 03/19/22 15:19 Pulse Ox 91 03/19/22 15:19 O2 Del Method 03/19/22 15:19 O2 Flow Rate 1 03/19/22 15:19 Physical Exam Narrative: Clinical sign of congestive heart failure lower extremity edema Currently patient on 1 L nasal cannula A. beverley RVR Hemodynamically stable Nonfocal neuro exam No audible stridor or wheezing Pleasant during my evaluation Nonfocal neuro Data : 03/19/22 13:40 03/19/22 13:40 Micro: Microbiology 03/19/22 13:42 Blood Culture - Preliminary Blood SPECIMEN COLLECTED 03/19/22 13:40 Blood Culture - Preliminary Blood SPECIMEN COLLECTED A&P Assessment and plan (1) Cellulitis: (2) Atrial fibrillation: (3) Acute exacerbation of CHF (congestive heart failure): (4) Status post endovascular aneurysm repair (EVAR): (5) Cirrhosis: Qualifiers: Hepatic cirrhosis type: other cirrhosis Qualified Code(s): K74.69 - Other cirrhosis of liver (6) Portal hypertension: (7) AAA (abdominal aortic aneurysm): Plan Sepsis due to cellulitis of leg Start antibiotics, vancomycin and Zosyn Sepsis criteria met with tachypnea tachycardia and high lactic acid Not a candidate of septic bolus because of congestive heart failure exacerbation Low EF Acute S-CHF exacerbation EF 20 to 25% Start IV diuretics Liver cirrhosis Portal hypertension Continue Bumex and spironolactone No active signs of hepatic encephalopathy History of Alfonso lowery Takes Eliquis Pulmonary hypertension takes sildenafil Ascites, at home he has been taking Bumex 1 mg twice daily along spironolactone Check ammonia level, no signs of hepatic encephalopathy Guarded prognosis Patient is full code Cardiac diet Attestations Medical Necessity Statement*: More than 2 midnights anticipated Time Spent in Patient Care: 40 Coding Level of Care Code Acute Director International for Chg Fwd Diagnoses Cellulitis L03.90 Atrial fibrillation I48.91 Acute exacerbation of CHF (congestive heart failure) I50.9 Status post endovascular aneurysm repair (EVAR) Z98.890; Z86.79 Cirrhosis K74.69 Hepatic cirrhosis type: other cirrhosis Portal hypertension K76.6 AAA (abdominal aortic aneurysm) I71.40
[2022-03-19 17:18] LABS: Lactic Acid level (Lactate) 2.6 mmol/L (0.5-2.2)
[2022-03-19 17:49] LABS: Troponin 5 2HR 19.13 ng/L (0-15); Troponin 5 2HR Delta -0.87 ABS# (0-10)
[2022-03-19] MEDS: bumetanide 1 mg Tablet PO (20:12)
[2022-03-19] MEDS: vancomycin 1,250 MG/250 ML PIGGYBACK 250 MG IV (20:12)
[2022-03-19] MEDS: apixaban 5 mg Tablet PO (20:12)
--- NOTE | 2022-03-19 20:20 | ECG_ITS ---
[facility] Test Date: 2022-03-19 Pat Name: Cheko Weaver Department: Room: 268 Gender: Male Habilitation Training Specialist: : 1955 Requested By: Hossein Whiting Order Number: [id number] Bustillo MD: Rossy Navarro M.D. Measurements Intervals [place] Rate: 116 P: AL: QRS: -68 QRSD: 109 T: 93 QT: 332 QTc: 463 Interpretive Statements ATRIAL FIBRILLATION WITH RAPID VENTRICULAR RESPONSE with occasional paced beat LOW QRS VOLTAGE IN PRECORDIAL LEADS [QRS DEFLECTION < 1.0 mV IN CHEST LEADS] POSSIBLE RIGHT VENTRICULAR CONDUCTION DELAY [RSR (QR) IN V1/V2] ANTEROLATERAL MYOCARDIAL INFARCTION , OF INDETERMINATE AGE [40+ ms Q WAVE IN I/aVL/V3-V6] Compared to ECG 03/19/2022 14:53:16 Ventricular premature complex(es) no longer present Aberrant conduction of supraventricular beat(s) no longer present Myocardial infarct finding still present Electronically Signed On 03-20-2022 11:40:09 IN SCHOOL SUSPENSION AIDE by Rossy Navarro M.D. [id number]
[2022-03-19] MEDS: ipratropium-albuterol 3 mL Neb INHALATION (20:25)
[2022-03-19] MEDS: piperacillin-tazobactam 3.375 GM in sodium chloride 0.9% (plus) 50 ML IV (21:50)
[2022-03-19] MEDS: trazodone 50 mg Tablet 25 MG PO (23:11)
[2022-03-20] VITALS (33 sets, daily range): BP systolic 82–119; BP diastolic 44–82; PULSE 91–123; RESP 11–38; TEMP 36.1; O2SAT 74–97
[2022-03-20 05:30] LABS: Basophils # 0.1 10^3/uL (0.0-0.1); Basophils % 0.9 %; Eosinophils # 0.1 10^3/uL (0.0-0.8); Eosinophils % 0.8 %; Hematocrit 47.9 % (42.0-52.0); Hemoglobin 14.9 g/dL (11.7-16.6); Lymphocytes # 1.6 10^3/uL (0.8-4.8); Lymphocytes % 18.9 %; Mean Corpuscular HGB Conc 31.1 g/dL (30.0-36.0); Mean Corpuscular Hemoglobin 29.7 pg (28.0-34.0); Mean Corpuscular Volume 95.6 fl (80-94); Mean Platelet Volume 11.9 fL (7.4-10.4); Monocytes # 1.1 10^3/uL (0.2-0.9); Monocytes % 13.2 %; Neutrophils # 5.59 10^3/uL (1.8-7.7); Neutrophils % 65.7 %; Nucleated Red Blood Cells % 0 %; Platelet Count 138 10^3/cmm (130-400); Red Blood Count 5.01 10^6/uL (4.1-5.3); Red Cell Distribution Width 18.8 % (12.1-15.1); White Blood Count 8.5 10^3/uL (4.0-10.0)
[2022-03-20] MEDS: piperacillin-tazobactam 3.375 GM in sodium chloride 0.9% (plus) 50 ML IV ×3 (05:53→20:35)
[2022-03-20] MEDS: allopurinol 100 mg Tablet PO (05:53)
[2022-03-20 05:54] LABS: Blood Urea Nitrogen 12 mg/dL (8-23); C Reactive Protein 24.1 mg/L (0.0-4.9); Calcium 8.4 mg/dL (8.5-10.5); Carbon Dioxide 19 mmol/L (22-29); Chloride 101 mmol/L (98-107); Glucose 85 mg/dL (65-115); Osmolality Calculated 277 mOsm/kg (285-295); Sodium 134 mmol/L (136-145)
[2022-03-20 06:08] LABS: Anion Gap 18.3 (5-19); Potassium 4.3 mmol/L (3.5-5.1)
[2022-03-20] MEDS: finasteride 5 mg Tablet PO (08:57)
[2022-03-20] MEDS: spironolactone 25 mg Tablet 12.5 MG PO (08:58)
[2022-03-20] MEDS: apixaban 5 mg Tablet PO ×2 (08:58→17:04)
[2022-03-20] MEDS: bumetanide 1 mg Tablet PO ×2 (08:58→17:04)
[2022-03-20] MEDS: metoprolol succinate ER (24 HR) 25 mg Tablet PO (08:58)
[2022-03-20] MEDS: vancomycin 1,250 MG/250 ML PIGGYBACK 250 MG IV ×2 (08:58→19:29)
[2022-03-20] MEDS: sennosides-docusate Tablet 1 TAB PO (08:58)
[2022-03-20] MEDS: tamsulosin 0.4 mg Capsule PO (08:58)
--- NOTE | 2022-03-20 10:45 | PC.CHAP ---
Pastoral Care Encounter/Spiritual Assessment Type of Contact [] Declined fixed route bus operator visit [] Patient/Family/Request visit [] Outpatient visit [] Follow-up visit [] Physician referral [] Code/Alert [x] Routine visit [] Staff referral [] Actively dying [] Patient sleeping [] Family support [] [] Out of room [] Palliative care [] [x] Receiving care in room [] Pre-surgical visit [] Trauma [] Long length of stay [] ICU visit [] Other: Relational/Emotional Strength [x] Patient feels connected with others/family/visitors/staff [] Distress [] Loneliness/isolation [] Abandonment Spirituality of Patient [x] Person of Barbara [] Attends Episcopalian of their Barbara [x] Believes in Prayer [] Reads Bible or Restoration materials [] There are Spiritual issues to be addressed Operations Analyst Interventions [x] Prayer [x] Active listening [x] Non-anxious presence [x] Spiritual/emotional support [] Crisis/trauma care [x] Spiritual counseling [] Bereavement support [] Provided bereavement packet [] Provided Bible/devotional materials [] Provided toy/stuffed animal, coloring book to patient or family member [] Provided Communion [] Anointing/[place] [] Salvation [x] Completed spiritual assessment [] Other: Impact on Illness or Injury [] Angry [] Fearful [] Anxious [] Often cries [] Exhaustion [] Unable to work [] Unable to attend mu-ism [] Unable to walk/stand [] Unable to read [] Unable to drive [] Unable to eat/drink [] Unable to sleep [] Unable to be with family [] Patient intubated [] Other: Summary CDP has had some tests feels good about treatments at this time well go home Time spent with patient 10 mins
--- NOTE | 2022-03-20 12:39 | PM.PN ---
Subjective Subjective: Patient is endorsing feeling slightly better still endorsing pain in his right foot No signs of vascular compromise or DVT He was watching television eating breakfast at the time of my evaluation Vitals/I&O/Wt Last Vital Signs Temp 96.9 F L 03/20/22 08:00 Pulse 107 H 03/20/22 11:22 Resp 18 03/20/22 11:22 BP 99/65 03/20/22 11:22 Pulse Ox 96 03/20/22 11:22 O2 Del Method 03/20/22 11:22 O2 Flow Rate 2 03/20/22 03:51 03/19/22 03/20/22 03/20/22 22:59 06:59 14:59 Intake Total 300 / 300 410 / 710 540 / 540 Output Total 150 / 150 400 / 550 100 / 100 Balance 150 / 150 10 / 160 440 / 440 Weight last 48 hrs Weight 104.95 kg Physical Exam Narrative: She was watching television eating breakfast Currently on 4 L nasal cannula 's clinical signs of fluid overload Left leg erythema with venous stasis dermatitis Purulent cellulitis Distended abdomen Signs of fluid overload Awake and alert Nonfocal neuro exam Unkept appearance Data : 03/20/22 05:06 03/20/22 05:06 Micro: Microbiology 03/19/22 13:42 Blood Culture - Preliminary Blood SPECIMEN COLLECTED 03/19/22 13:40 Blood Culture - Preliminary Blood SPECIMEN COLLECTED A&P Assessment and plan (1) AAA (abdominal aortic aneurysm): (2) Portal hypertension: (3) Cellulitis: (4) Atrial fibrillation: (5) Acute exacerbation of CHF (congestive heart failure): (6) Status post endovascular aneurysm repair (EVAR): (7) Sepsis: (8) Cirrhosis: Qualifiers: Hepatic cirrhosis type: other cirrhosis Qualified Code(s): K74.69 - Other cirrhosis of liver (9) COPD (chronic obstructive pulmonary disease): Qualifiers: COPD type: COPD with acute exacerbation Qualified Code(s): J44.1 - Chronic obstructive pulmonary disease with (acute) exacerbation (10) Nonischemic cardiomyopathy: (11) Atrial fibrillation: Qualifiers: Atrial fibrillation type: unspecified Qualified Code(s): I48.91 - Unspecified atrial fibrillation Plan Sepsis related to cellulitis He is afebrile Continue IV antibiotic Keep legs elevated No signs of DVT or arterial insufficiency Acute CHF exacerbation systolic Nonischemic cardiomyopathy Continue IV diuresis Liver cirrhosis without hepatic encephalopathy Continue Bumex and spironolactone A. fib No acute decompensation Continue rate control medications Patient is full code High risk of mortality morbidity Attestations Medical Necessity Statement*: Continue medical management Time Spent in Patient Care: 30 Coding Level of Care Code Acute Orange Picker Machine Operator for Chg Fwd Diagnoses AAA (abdominal aortic aneurysm) I71.40 Portal hypertension K76.6 Cellulitis L03.90 Atrial fibrillation I48.91 Acute exacerbation of CHF (congestive heart failure) I50.9 Status post endovascular aneurysm repair (EVAR) Z98.890; Z86.79 Sepsis A41.9 Cirrhosis K74.69 Hepatic cirrhosis type: other cirrhosis COPD (chronic obstructive pulmonary disease) J44.1 COPD type: COPD with acute exacerbation Nonischemic cardiomyopathy I42.8 Atrial fibrillation I48.91 Atrial fibrillation type: unspecified
[2022-03-20] MEDS: bacitracin ointment 28 gm 1 APPLIC TOPICAL (13:44)
[2022-03-20] MEDS: ondansetron 2 mg/ML SDV 2 mL 4 MG IVP (13:46)
[2022-03-20 13:57] LABS: Ammonia 51 umol/L (16-60)
--- NOTE | 2022-03-20 14:07 | ECG_ITS ---
[facility] Test Date: 2022-03-20 Pat Name: Cheko Weaver Department: Room: 268 Gender: Male Marker Hand: : 1955 Requested By: Ronald Banks Order Number: [id number] Keny MD: Lele Donaldson M.D. Measurements Intervals [place] Rate: 123 P: 0 AL: 0 QRS: -65 QRSD: 113 T: 95 QT: 348 QTc: 499 Interpretive Statements ATRIAL FIBRILLATION WITH RAPID VENTRICULAR RESPONSE LOW QRS VOLTAGE IN PRECORDIAL LEADS [QRS DEFLECTION < 1.0 mV IN CHEST LEADS] POSSIBLE ANTERIOR MYOCARDIAL INFARCTION , PROBABLY OLD [30 ms Q WAVE IN V3/V4, OR R < 0.2 mV IN V4] INFERIOR MYOCARDIAL INFARCTION , PROBABLY OLD [40+ ms Q WAVE AND/OR ST/T ABNORMALITY IN II/aVF] Compared to ECG 03/19/2022 20:20:43 No significant changes Electronically Signed On 03-20-2022 15:02:49 BOX TRUCK DRIVER by Lele Donaldson M.D. [id number]
--- NOTE | 2022-03-20 15:51 | PC.NURSE ---
ICU Pt taken down to rm 10 and report was given to Kaity LIN.
[2022-03-20] MEDS: digoxin 250 mcg/ml INJ 2 mL 500 MCG IVP (16:27)
--- NOTE | 2022-03-20 17:57 | PC.NURSE ---
Patient rolling around in bed, continuing to remove ekg leads. Other than some what uncooperative with cares but pleasant with staff
[2022-03-20] MEDS: trazodone 50 mg Tablet 25 MG PO (20:35)
[2022-03-20] MEDS: ipratropium-albuterol 3 mL Neb INHALATION (20:58)
[2022-03-21] VITALS (95 sets, daily range): BP systolic 78–123; BP diastolic 52–78; PULSE 0–117; RESP 12–47; TEMP 36–36.4; O2SAT 72–97
[2022-03-21] MEDS: zolpidem 5 mg Tablet PO ×2 (01:14→21:30)
--- NOTE | 2022-03-21 01:25 | PC.NURSE ---
Ambien Patient received 25 mg trazodone at 2030. At 0000, patient stating that he is unable to sleep and that the medication did nothing. Dr. Lynn contacted and order received for 5 mg Ambien PO PRN for insomnia. See MAR for details.
[2022-03-21] MEDS: piperacillin-tazobactam 3.375 GM in sodium chloride 0.9% (plus) 50 ML IV (04:53)
[2022-03-21] MEDS: allopurinol 100 mg Tablet PO (05:58)
[2022-03-21] MEDS: vancomycin 1,250 MG/250 ML PIGGYBACK 250 MG IV (07:06)
[2022-03-21 07:33] LABS: Basophils # 0.1 10^3/uL (0.0-0.1); Basophils % 1.2 %; Eosinophils # 0.1 10^3/uL (0.0-0.8); Eosinophils % 1.1 %; Hematocrit 47.6 % (42.0-52.0); Hemoglobin 15.1 g/dL (11.7-16.6); Lymphocytes # 1.5 10^3/uL (0.8-4.8); Lymphocytes % 20.6 %; Mean Corpuscular HGB Conc 31.7 g/dL (30.0-36.0); Mean Corpuscular Hemoglobin 29.7 pg (28.0-34.0); Mean Corpuscular Volume 93.5 fl (80-94); Mean Platelet Volume 11.1 fL (7.4-10.4); Monocytes % 13.6 %; Neutrophils % 63.1 %; Nucleated Red Blood Cells % 0 %; Platelet Count 125 10^3/cmm (130-400); Red Blood Count 5.09 10^6/uL (4.1-5.3); Red Cell Distribution Width 18.5 % (12.1-15.1); White Blood Count 7.4 10^3/uL (4.0-10.0)
[2022-03-21] MEDS: tamsulosin 0.4 mg Capsule PO (08:05)
[2022-03-21] MEDS: metoprolol succinate ER (24 HR) 25 mg Tablet PO (08:05)
[2022-03-21] MEDS: bumetanide 1 mg Tablet PO ×2 (08:05→17:33)
[2022-03-21] MEDS: sennosides-docusate Tablet 1 TAB PO (08:05)
[2022-03-21] MEDS: spironolactone 25 mg Tablet 12.5 MG PO (08:06)
[2022-03-21] MEDS: apixaban 5 mg Tablet PO ×2 (08:06→17:33)
[2022-03-21] MEDS: finasteride 5 mg Tablet PO (08:06)
[2022-03-21] MEDS: bacitracin ointment 28 gm 1 APPLIC TOPICAL (08:07)
[2022-03-21 08:15] LABS: Lactate (Lactic Acid level) 1.5 mmol/L (0.5-2.2)
[2022-03-21 08:16] LABS: Anion Gap 18.9 (5-19); Blood Urea Nitrogen 16 mg/dL (8-23); Calcium 8.1 mg/dL (8.5-10.5); Carbon Dioxide 20 mmol/L (22-29); Chloride 100 mmol/L (98-107); Glomerular Filtration Rate 67.2 mL/min (90-130); Glucose 79 mg/dL (65-115); Osmolality Calculated 280 mOsm/kg (285-295); Potassium 3.9 mmol/L (3.5-5.1); Sodium 135 mmol/L (136-145)
[2022-03-21 08:17] LABS: Vancomycin Trough 19.9 ug/mL (10-15)
--- NOTE | 2022-03-21 10:53 | PM.PN ---
Subjective Subjective: Patient is stating that he is feeling slightly better today He never required Levophed yesterday His hemodynamics improved when he was transferred to ICU Patient has been noncompliant does not want to use oxygen He was eating breakfast when I saw him today Vitals/I&O/Wt Last Vital Signs Temp 97.4 F L 03/21/22 04:00 Pulse 101 H 03/21/22 08:58 Resp 18 03/21/22 08:58 BP 78/61 03/21/22 08:30 Pulse Ox 94 03/21/22 10:30 O2 Del Method 03/21/22 08:58 O2 Flow Rate 3 03/21/22 08:58 03/20/22 03/21/22 03/21/22 22:59 06:59 14:59 Intake Total 762 / 1302 272 / 1574 540 / 540 Output Total 400 / 600 335 / 935 Balance 362 / 702 -63 / 639 540 / 540 Weight last 48 hrs Weight 104.95 kg Physical Exam Narrative: Clinically looks fluid overloaded Bilateral lower extremity venous stasis dermatitis Right leg cellulitis There is bluish tent as well around his toes however no significant ischemia Abdomen distended, nontender Bilateral breath sounds with crackles Currently is on room air He does not want to use oxygen Nonfocal neuro exam Data : 03/21/22 07:21 03/21/22 07:21 Micro: Microbiology 03/19/22 13:42 Blood Culture - Preliminary Blood NEGATIVE TO DATE 03/19/22 13:40 Blood Culture - Preliminary Blood NEGATIVE TO DATE A&P Assessment and plan (1) Sepsis: (2) AAA (abdominal aortic aneurysm): (3) Portal hypertension: (4) Cellulitis: (5) Atrial fibrillation: (6) Acute exacerbation of CHF (congestive heart failure): (7) CHF (congestive heart failure): (8) Status post endovascular aneurysm repair (EVAR): (9) Cirrhosis: Qualifiers: Hepatic cirrhosis type: other cirrhosis Qualified Code(s): K74.69 - Other cirrhosis of liver (10) Atrial fibrillation: Qualifiers: Atrial fibrillation type: unspecified Qualified Code(s): I48.91 - Unspecified atrial fibrillation (11) Nonischemic cardiomyopathy: Plan Patient was transferred to ICU yesterday for concern of worsening of hypotension and hypoxia However he never required any vasopressors Sepsis No signs of septic shock Sepsis related to cellulitis Improving Afebrile, leukocytosis improved Right lower extremity cellulitis improving Patient is noncompliant most of the time he keeps his leg hanging at the bedside which makes his edema worse Currently has Misha noncompression wrap Switch to p.o. antibiotics Acute CHF exacerbation Systolic reduced ejection fraction cardiomyopathy Noncompliant Does not watch his sodium and fluid intake Continue diuresis Liver cirrhosis without acute decompensation A. fib without RVR Full code Plan to discharge him back to home over the weekend I did try to call his daughter I was not able to get in touch with her, voicemail was not set up as well Patient is stating that he not interested in talking with palliative team for now administrative manager updated Attestations Medical Necessity Statement*: If remains stable can be transferred out of ICU Time Spent in Patient Care: Continue medical management Coding Level of Care Code Acute Bias Binding Cutter for Chg Fwd Diagnoses Sepsis A41.9 AAA (abdominal aortic aneurysm) I71.40 Portal hypertension K76.6 Cellulitis L03.90 Atrial fibrillation I48.91 Acute exacerbation of CHF (congestive heart failure) I50.9 CHF (congestive heart failure) I50.9 Status post endovascular aneurysm repair (EVAR) Z98.890; Z86.79 Cirrhosis K74.69 Hepatic cirrhosis type: other cirrhosis Atrial fibrillation I48.91 Atrial fibrillation type: unspecified Nonischemic cardiomyopathy I42.8
[2022-03-21] MEDS: digoxin 125 mcg Tablet PO (11:13)
[2022-03-21] MEDS: doxycycline 100 mg Tablet PO (17:33)
[2022-03-22] VITALS (15 sets, daily range): BP systolic 83–111; BP diastolic 60–70; PULSE 80–106; RESP 15–24; TEMP 36.4; O2SAT 82–100
--- NOTE | 2022-03-22 00:10 | PC.NURSE ---
AMA/Monitoring At approximately 1830, patient stated he would like to leave AMA. Education provided on disease processes and care provided at the hospital; patient verbalized understanding and persisted on wanting to leave AMA but agreeable to speak with Dr. Banks regarding care. Dr. Banks bedside, daughter Karen called. Daughter states unable to pick patient up due to being out of state; Dr. Banks and daughter discuss staying until tomorrow for DC with patient. Patient agreeable to stay until tomorrow. Throughout the night, patient continuously removing monitoring wires and nasal cannula. When pulse ox monitoring is left on, patient noted to desat while sleeping into the 70-80s yet patient still removes cannula and states I ain't wearing no other oxygen. I never have, never will. Dr. Lynn notified.
[2022-03-22 03:32] LABS: Basophils # 0.1 10^3/uL (0.0-0.1); Eosinophils % 0.5 %; Hematocrit 49.8 % (42.0-52.0); Hemoglobin 15.5 g/dL (11.7-16.6); Lymphocytes # 1.5 10^3/uL (0.8-4.8); Lymphocytes % 17.8 %; Mean Corpuscular HGB Conc 31.1 g/dL (30.0-36.0); Mean Corpuscular Hemoglobin 29.4 pg (28.0-34.0); Mean Corpuscular Volume 94.5 fl (80-94); Mean Platelet Volume 11.5 fL (7.4-10.4); Monocytes # 1.1 10^3/uL (0.2-0.9); Monocytes % 13.4 %; Neutrophils # 5.57 10^3/uL (1.8-7.7); Neutrophils % 66.8 %; Nucleated Red Blood Cells % 0 %; Platelet Count 153 10^3/cmm (130-400); Red Blood Count 5.27 10^6/uL (4.1-5.3); Red Cell Distribution Width 18.7 % (12.1-15.1); White Blood Count 8.3 10^3/uL (4.0-10.0)
[2022-03-22 04:02] LABS: Blood Urea Nitrogen 21 mg/dL (8-23); Calcium 8.5 mg/dL (8.5-10.5); Carbon Dioxide 24 mmol/L (22-29); Chloride 94 mmol/L (98-107); Glomerular Filtration Rate 60.8 mL/min (90-130); Glucose 86 mg/dL (65-115); Osmolality Calculated 272 mOsm/kg (285-295); Sodium 130 mmol/L (136-145)
[2022-03-22 04:10] LABS: Anion Gap 16.2 (5-19); Potassium 4.2 mmol/L (3.5-5.1)
[2022-03-22] MEDS: allopurinol 100 mg Tablet PO (06:24)
--- NOTE | 2022-03-22 07:41 | PM.DCS ---
Discharge Providers Date of Admission: 03/19/22 17:55 Date of Discharge: March 22, 2022 Attending Provider at Admission: Ronald Banks MD Attending Provider at Discharge: Ronald Banks MD Diagnoses at Discharge Discharge Diagnosis (1) Sepsis: Status: Acute (2) AAA (abdominal aortic aneurysm): Status: Acute Permanent problem details: 5.7 cm infrarenal abdominal aortic aneurysm with aorto bi-iliac stent (3) Portal hypertension: Status: Acute (4) Cellulitis: Status: Acute (5) Atrial fibrillation: Status: Acute (6) Acute exacerbation of CHF (congestive heart failure): Status: Acute (7) CHF (congestive heart failure): Status: Acute (8) Status post endovascular aneurysm repair (EVAR): Status: Acute (9) Cirrhosis: Status: Acute Qualifiers: Hepatic cirrhosis type: other cirrhosis Qualified Code(s): K74.69 - Other cirrhosis of liver (10) Atrial fibrillation: Status: Acute Qualifiers: Atrial fibrillation type: unspecified Qualified Code(s): I48.91 - Unspecified atrial fibrillation Permanent problem details: Sotalol discontinued. Placed on amiodarone and metoprolol with adequate rate control (11) Nonischemic cardiomyopathy: Status: Acute Permanent problem details: 03/28/2021: LVEF 20 to 25%, [employer] ICD implanted 12/20/2018 Reason for Visit Reason for Visit: Sent from heart care, swelling rt leg Hospital Course Hospital Course 66-year male with history of ischemic cardiomyopathy reduced action fraction heart failure, noncompliant, active smoker, lives alone, presented to the hospital for worsening of leg swelling. In the ER arterial ischemia and DVT was ruled out hospitalist was requested to admit him for sepsis related to cellulitis. Septic bolus was not given because of CHF exacerbation. Patient was transferred to ICU because his skin was getting mottled and he was noncompliant with his oxygen. However in the ICU he never required any vasopressors, intermittently he uses oxygen, he does have capacity to make decisions for himself, he also refused using BiPAP which was used to decrease his work of breathing. Patient is stating that he would like to go home and take care of his home appears he does not want to stay in the hospital anymore family was contacted who wants to respect his wishes, he is high risk for mortality or morbidity considering reduced action fraction heart failure, noncompliance, liver cirrhosis. He is at high risk for readmissions as well I did offer him palliative care consult patient refused adamantly. During his stay he was treated with IV antibiotics, Lasix for CHF exacerbation and cellulitis of right foot. Cultures remain negative. Please note patient wanted to leave [facility] on 03/21 however agreed to stay when I contacted the family. He does not watch his sodium intake or fluid intake at home. He will continue most of his medications, digoxin was added because of his A. fib RVR he did receive IV digoxin 500 mcg and then he was switched to p.o. regimen. For his cellulitis I have added doxycycline for now. Physical Exam Narrative: Clinically looks fluid overloaded Bilateral lower extremity venous stasis dermatitis Right leg cellulitis improving to some extent, he does seem to have Raynaud's phenomenon, his toes get blue in cold Abdomen distended, nontender Bilateral breath sounds with crackles He does not want to use oxygen Nonfocal neuro exam Discharge Data Studies Completed and Pending Completed Studies During Hospitalization Category Date Time Status CT abdomen pelvis w con* [id number] Stat Cat Scan 03/19/22 14:49 Completed US arterial duplex lower extremity bilat [CV arterial Ultrasound 03/19/22 13:52 [place] [id number]] Stat US venous duplex lower extremity RT [CV venous duplex Ultrasound 03/19/22 13:52 [place] [id number]] Stat Pending at discharge Category Date Time Status Blood Culture Stat Lab 03/19/22 13:42 Results Radiology Impressions Duplex Scan Lower Extremity Artery 03/19/22 13:52 IMPRESSION: No significant stenosis or occlusion. Abdomen/Pelvis CT 03/19/22 14:49 IMPRESSION: 1. Morphological changes of the liver consistent with cirrhosis. Small volume ascites in the lower abdomen which may reflect portal hypertension. 2. Mild anasarca involving the soft tissues of the abdomen/lower extremities. 3. 5.7 cm infrarenal abdominal aortic aneurysm with aorto bi-iliac stent and no evidence of endoleak. 4. Cholelithiasis. COMMENTS: Consistent with the [employer]'s Incidental Findings Committee white paper (J Am Ari Radiol 2018): Any incidental renal lesion less than 1 cm or classified as too small to characterize, or any incidental cystic renal lesion characterized as simple-appearing, is likely benign. No follow-up imaging is recommended for these lesions per consensus recommendations based on imaging criteria. Laboratory Results WBC 8.3 10^3/uL (4.0-10.0) 03/22/22 03:02 RBC 5.27 10^6/uL (4.1-5.3) 03/22/22 03:02 Hgb 15.5 g/dL (11.7-16.6) 03/22/22 03:02 Hct 49.8 % (42.0-52.0) 03/22/22 03:02 MCV 94.5 fl (80-94) H 03/22/22 03:02 MCH 29.4 pg (28.0-34.0) 03/22/22 03:02 MCHC 31.1 g/dL (30.0-36.0) 03/22/22 03:02 RDW 18.7 % (12.1-15.1) H 03/22/22 03:02 Plt Count 153 10^3/cmm (130-400) 03/22/22 03:02 MPV 11.5 fL (7.4-10.4) H 03/22/22 03:02 Neut % (Auto) 66.8 % 03/22/22 03:02 Lymph % (Auto) 17.8 % 03/22/22 03:02 [place] % (Auto) 13.4 % 03/22/22 03:02 Eos % (Auto) 0.5 % 03/22/22 03:02 Baso % (Auto) 1.0 % 03/22/22 03:02 Neut # (Auto) 5.57 10^3/uL (1.8-7.7) 03/22/22 03:02 Lymph # (Auto) 1.5 10^3/uL (0.8-4.8) 03/22/22 03:02 [place] # (Auto) 1.1 10^3/uL (0.2-0.9) H 03/22/22 03:02 Eos # (Auto) 0.0 10^3/uL (0.0-0.8) 03/22/22 03:02 Baso # (Auto) 0.1 10^3/uL (0.0-0.1) 03/22/22 03:02 Nucleated RBC % (auto) 0 % 03/22/22 03:02 Nucleated RBCs # 0.0 /100WBC 03/22/22 03:02 Sodium 130 mmol/L (136-145) L 03/22/22 03:02 Potassium 4.2 mmol/L (3.5-5.1) 03/22/22 03:02 Chloride 94 mmol/L (98-107) L 03/22/22 03:02 Carbon Dioxide 24 mmol/L (22-29) 03/22/22 03:02 Anion Gap 16.2 (5-19) 03/22/22 03:02 BUN 21 mg/dL (8-23) 03/22/22 03:02 Creatinine 1.2 mg/dL (0.7-1.2) 03/22/22 03:02 GFR Calculation 60.8 mL/min (90-130) L 03/22/22 03:02 Glucose 86 mg/dL (65-115) 03/22/22 03:02 Calculated Osmolality 272 mOsm/kg (285-295) L 03/22/22 03:02 Lactic Acid 2.8 mmol/L (0.5-2.2) H 03/19/22 13:40 Lactic Acid (Sepsis) 2.6 mmol/L (0.5-2.2) H 03/19/22 16:50 Lactate 1.5 mmol/L (0.5-2.2) 03/21/22 07:21 Calcium 8.5 mg/dL (8.5-10.5) 03/22/22 03:02 Magnesium 2.0 mg/dL (1.7-2.3) 03/20/22 05:06 Total Bilirubin 3.4 mg/dL (0.15-1.2) H 03/19/22 13:40 AST 32 U/L (0-40) 03/19/22 13:40 ALT 74 U/L (0-41) H 03/19/22 13:40 Alkaline Phosphatase 211 U/L (40-130) H 03/19/22 13:40 Ammonia 51 umol/L (16-60) 03/20/22 13:29 Troponin T Baseline 20 ng/L (0-15) H 03/19/22 13:40 Troponin T 120 Minute 19.13 ng/L (0-15) H 03/19/22 16:50 Delta Troponin T -0.87 ABS# (0-10) L 03/19/22 16:50 Troponin T Hi Sens 6Hr 19.70 ng/L (0-15) H 03/19/22 20:01 Troponin T Hi Sens 6Hr Delta -0.30 ng/L (0-12) L 03/19/22 20:01 C-Reactive Protein 24.1 mg/L (0.0-4.9) H 03/20/22 05:06 NT-Pro-B Natriuret Pep 5314 pg/mL (0-125) H 03/19/22 13:40 Total Protein 6.5 g/dL (6.6-8.7) L 03/19/22 13:40 Albumin 3.4 g/dL (3.5-5.2) L 03/19/22 13:40 Globulin 3.1 g/dL (1.3-4.6) 03/19/22 13:40 Vancomycin Trough 19.9 ug/mL (10-15) H 03/21/22 07:21 Vitals Last Vital Signs Temp 97.5 F L 03/22/22 04:26 Pulse 90 03/22/22 06:30 Resp 15 03/22/22 02:30 BP 98/68 03/22/22 06:30 Pulse Ox 90 03/22/22 06:30 O2 Del Method 03/22/22 06:30 O2 Flow Rate 3 03/22/22 06:30 Discharge Plan Discharge Patient Disposition: Home Condition: Fair Prescriptions: New doxycycline monohydrate 100 mg Tablet 100 mg PO BID Qty: 20 0RF digoxin 125 mcg (0.125 mg) Tablet 125 mcg PO DAILY Qty: 90 1RF Continued tamsulosin 0.4 mg capsule 0.4 mg PO DAILY Eliquis 5 mg tablet 5 mg PO BID Qty: 180 3RF Hold Instructions: Resume on 10/20/20. sildenafil (pulm.hypertension) 20 mg tablet 20 mg PO DAILY Qty: 30 2RF allopurinol 100 mg tablet 100 mg PO QAM ferrous sulfate 325 mg (65 mg iron) tablet 325 mg PO EVERY OTHER DAY finasteride 5 mg tablet 5 mg PO DAILY rosuvastatin 40 mg tablet 40 mg PO DAILY Spiriva with HandiHaler 18 mcg capsule, w/inhalation device 1 cap INHALATION DAILY Hold Instructions: Resume on 04/06/21. budesonide-formoterol [Symbicort] 160-4.5 mcg/actuation Hfa Aerosol Inhaler 2 puff INHALATION BID albuterol sulfate 90 mcg/actuation aerosol powdr breath activated 1 inh INHALATION Q6H PRN (Reason: shortness of breath or wheezing) Qty: 1 3RF aspirin 81 mg Tablet,Delayed Release (Dr/Ec) 81 mg PO DAILY metoprolol succinate 25 mg tablet extended release 24 hr 25 mg PO DAILY bumetanide 1 mg tablet 1 mg PO BID Qty: 120 1RF Discontinued spironolactone 25 mg tablet 12.5 mg PO DAILY Qty: 45 2RF ciprofloxacin HCl 500 mg tablet 500 mg PO Q12H Discharge Orders: Discharge Order (Routine); Ordered 03/22/22 Ordered By: Ronald Banks Discharge Diet: Cardiac Discharge Activity: Limit activity as instructed Patient Instructions: Cellulitis, COPD, Digoxin (By mouth), Doxycycline (By mouth), Heart Failure (DC), A-fib (Atrial Fibrillation) (DC), Using Oxygen at Home (DC), Digoxin Toxicity (GEN), CHF Stoplight, COPD Stoplight, Opioid Safety Discharge Attestations Time Spent in Discharge Care*: less than 30 min Status at Discharge: Cognitive status at discharge: cognitively intact, Behavioral status at discharge: cooperative, Quality Metrics Clinical Quality Measures [ No reported AMI, CVA or VTE this stay] Coding Level of Care Code Acute Chg FW DC note Diagnoses Sepsis A41.9 AAA (abdominal aortic aneurysm) I71.40 Portal hypertension K76.6 Cellulitis L03.90 Atrial fibrillation I48.91 Acute exacerbation of CHF (congestive heart failure) I50.9 CHF (congestive heart failure) I50.9 Status post endovascular aneurysm repair (EVAR) Z98.890; Z86.79 Cirrhosis K74.69 Hepatic cirrhosis type: other cirrhosis Atrial fibrillation I48.91 Atrial fibrillation type: unspecified Nonischemic cardiomyopathy I42.8
[2022-03-22] MEDS: doxycycline 100 mg Tablet PO (08:35)
[2022-03-22] MEDS: finasteride 5 mg Tablet PO (08:35)
[2022-03-22] MEDS: metoprolol succinate ER (24 HR) 25 mg Tablet PO (08:35)
[2022-03-22] MEDS: sennosides-docusate Tablet 1 TAB PO (08:35)
[2022-03-22] MEDS: apixaban 5 mg Tablet PO (08:35)
[2022-03-22] MEDS: bumetanide 1 mg Tablet PO (08:35)
[2022-03-22] MEDS: spironolactone 25 mg Tablet 12.5 MG PO (08:35)
[2022-03-22] MEDS: tamsulosin 0.4 mg Capsule PO (08:36)
[2022-03-22] MEDS: digoxin 125 mcg Tablet PO (08:38)
--- NOTE | 2022-03-22 12:19 | PC.SOCIAL ---
IMM Emilyte @ 0845 on 03/22/2002 [facility] Updated and reviewed w/ patient. Copy provided and Copy dated, initialed and placed in chart.
== END 2022-03-22 10:38 | disposition home or self-care (01) | DRG 871 ==
LOC: ER 16:26 → MEDSURG 17:56 → ICU 03-20 15:52
PROVIDERS: Admitting Provider Internal Medicine; Emergency Provider Emergency Medicine; Visit Provider Internal Medicine
DX: A41.9 Sepsis, unspecified organism (principal); I50.23 Acute on chronic systolic (congestive) heart failure; L03.115 Cellulitis of right lower limb; R18.8 Other ascites; K76.6 Portal hypertension; I42.8 Other cardiomyopathies; I11.0 Hypertensive heart disease with heart failure; I48.91 Unspecified atrial fibrillation; I27.20 Pulmonary hypertension, unspecified; K74.60 Unspecified cirrhosis of liver; J44.9 Chronic obstructive pulmonary disease, unspecified; I71.43 Infrarenal abdominal aortic aneurysm, without rupture; I87.2 Venous insufficiency (chronic) (peripheral); F17.210 Nicotine dependence, cigarettes, uncomplicated; Z95.828 Presence of other vascular implants and grafts; Z95.810 Presence of automatic (implantable) cardiac defibrillator; Z91.199 Patient's noncompliance with other medical treatment and regimen due to unspecified reason; Z79.51 Long term (current) use of inhaled steroids; Z79.82 Long term (current) use of aspirin; Z79.01 Long term (current) use of anticoagulants
CPT/HCPCS: 36415; 74177; 80048; 80053; 80202; 82140; 83605; 83735; 83880; 84484; 85025; 86140; 87040; 93005; 93925; 93971; 94640; 96365; 99214; 99285; J1160; J2405; J2543; J3370; J3490; Q9967

== ENCOUNTER 2022-04-22 15:53 | Emergency (ER) | payer MEDICARE, MEDICAID, SELFPAY ==
[2022-04-22] VITALS (53 sets, daily range): BP systolic 79–126; BP diastolic 35–94; PULSE 69–107; RESP 14–43; TEMP 36.3; O2SAT 75–100
--- NOTE | 2022-04-22 16:27 | XRR_ITS ---
PROCEDURE INFORMATION: Exam: XR Chest Exam date and time: 04/22/2022 5:44 PM Age: 66 years old Clinical indication: Cough; Prior surgery; Surgery date: 6+ months; Surgery type: Pacemaker; Additional info: Dyspnea/cough TECHNIQUE: Imaging protocol: Radiologic exam of the chest. Views: 1 view. COMPARISON: CR XR chest 1V portable [id number] 03/27/2021 5:06 PM FINDINGS: Tubes, catheters and devices: Right subclavian central line with distal tip overlying SVC. Permanent pacemaker/AICD noted, unchanged. Lungs: No consolidative pulmonary infiltrate noted. Pleural spaces: No pleural effusion. No pneumothorax. Heart/Mediastinum: Cardiomegaly is present. Vasculature: The thoracic aorta is atherosclerotic. Bones/joints: Unremarkable. XR/XR chest 1V portable [id number] IMPRESSION: 1. Right subclavian central line with distal tip overlying SVC. This is new when compared to 03/27/2021. No pneumothorax associated. 2. Cardiomegaly is present. 3. No consolidative pulmonary infiltrate noted.
--- NOTE | 2022-04-22 16:29 | W.ED.RECABL ---
HPI - Recheck/Abnormal Lab/Rx General: Chief Complaint: Recheck/Abnormal Lab/Rx Stated Complaint: irregular liver function Time Seen by Provider: 04/22/22 16:10 Source: patient Mode of arrival: wheelchair History of Present Illness: 66-year-old male presents to the emergency room from local primary care clinic. He appears mildly jaundice is hypotensive. He has anasarca at the levels of his clavicles. He is awake alert he is asked able to give a good history he is a former heavy smoker up to 3 packs a day has ischemic cardiomyopathy with an ICD in place last ejection fraction was around 20 to 25%. He has had decreased urinary output the last several days. He denies any chest pain or shortness of breath no fever sweats or chills. Additionally has not had a bowel movement in 3 days. This is severely distended and painful. MD complaint: abnormal lab Associated symptoms: shortness of breath, malaise, nausea and abdominal pain Review of Systems Const: Denies: fever(s), chills, body aches, change in appetite, fatigue or malaise ENMT: Denies: throat pain, ear or mastoid pain, nasal discharge or nasal congestion Card: Denies: chest pain, edema, dyspnea on exertion or orthopnea Resp: Denies: dyspnea, productive cough or non-productive cough GI: Reports: abdominal pain, nausea, vomiting and bloating; Denies: hematemesis, coffee ground emesis, diarrhea, constipation, hematochezia or melena : Reports: difficulty urinating; Denies: flank pain, dysuria, urinary frequency or urinary urgency Skin/Breast: Denies: rash or pruritus PFS ED PFSH: Medical History (Updated 04/23/22 @ 14:12 by Ji Looney DO) AAA (abdominal aortic aneurysm) 5.7 cm infrarenal abdominal aortic aneurysm with aorto bi-iliac stent Abdominal aortic aneurysm Acute exacerbation of CHF (congestive heart failure) Atrial fibrillation Sotalol discontinued. Placed on amiodarone and metoprolol with adequate rate control Atrial fibrillation Cellulitis CHF (congestive heart failure) Cirrhosis Colon polyps COPD (chronic obstructive pulmonary disease) Stable Hyperlipidemia Hypertension Nonischemic cardiomyopathy 03/28/2021: LVEF 20 to 25%, Medtronic ICD implanted 12/20/2018 Portal hypertension Sepsis Thrombocytopenia Surgical History H/O hernia repair L inguinal hernia repair History of implantable cardioverter-defibrillator (ICD) placement 12/20/18 History of orthopedic surgery Repair heel fracture Status post colonoscopy (10/18/20) Status post endovascular aneurysm repair (EVAR) Family History Mother Dementia Father CAD (coronary artery disease) Social History Smoking and tobacco status: current every day smoker cigarettes Packs smoked per day: 0.5 Years cigarettes smoked: 46 Alcohol intake: current Alcohol intake frequency: other Physical Exam Const: GENERAL APPEARANCE: cooperative and comfortable ORIENTATION/CONSCIOUSNESS: Yes awake, Yes oriented to person, Yes oriented to place and Yes oriented to time HENMT: COMMON NORMALS: normocephalic, atraumatic and hearing grossly normal bilaterally HEAD & SCALP: normocephalic and atraumatic Resp: COMMON NORMALS: normal respiratory effort, No retractions, No use of accessory muscles and clear to auscultation bilaterally AUSCULTATION: clear to auscultation bilaterally Cardio: COMMON NORMALS: regular rate, regular rhythm and No murmurs present (Cardio) RATE: regular rate RHYTHM: regular rhythm GI: INSPECTION: Yes abdominal distension AUSCULTATION: Yes Absent bowel sounds PALPATION: Yes Tenderness to palpation present (GI) and No Guarding due to palpation present (GI) Extremity: COMMON NORMALS: normal to inspection, capillary refill normal, no clubbing, cyanosis or edema, no calf tenderness and no pedal edema Neuro: SENSORIUM/ORIENTATION: Yes oriented to person, Yes oriented to place and Yes oriented to time Skin: COMMON NORMALS: no rashes or lesions noted GENERAL SKIN EXAM: no rashes or lesions noted Procedures Central Line Placement Right SC: Time Out Performed: Yes Patient Placed on Monitor/Pulse Ox: Yes MD Prep: mask, gown and gloves Central Line Prep: Chlorhexidine scrub Local Anesthetic: lidocaine 1% Amount of anesthesia used (mL): 5 Ultrasound Used for Placement: Yes Central Line Lumen Inserted: triple Post Procedure: sutured in place, good blood return, all ports aspirated, flushed, capped and sterile dressing applied Post Procedure X-Ray: tip of catheter in good position and no pneumothorax seen Patient Tolerated Procedure: well Complications: none Course Vital Signs: Vital signs: Vital Signs Temperature 97.3 F L 04/22/22 16:05 Pulse Rate 99 04/23/22 13:15 Respiratory Rate 18 04/23/22 13:15 Blood Pressure 110/80 04/23/22 13:15 Pulse Oximetry 95 04/23/22 13:15 Oxygen Delivery Me thod 04/23/22 06:54 Oxygen Flow Rate 4 04/23/22 06:54 MDM - Recheck/Abnormal Lab/Rx Medical Decision Making Patient initially seen by myself and then care transferred to Dr. Calderon. Dr. Calderon reviewed the initial labs overnight. Made arrangements for the patient go to [facility]. This morning assumed care of the patient again. This can be several days before [facility] may have an opening of called and managed to get a bed at [facility] in [place] will transfer by air ambulance. Earlier this morning while we are working on finding alternative facilities to transfer to we consulted Dr. Bazzi to assist with medical management labs repeat his INR has improved. We were able to get a bed for him at [facility] in [place]. Of talk to the receiving physician. He is currently on dobutamine and Levophed and he is relatively stable given his overall condition. His INR has decreased some. Patient be transferred by ground ambulance. Due to weather conditions were unable to get either helicopter or fixed wing to transfer to use [place]. Medical Records I reviewed the patient's medical records. Lab Data I reviewed the patient's lab results. 04/22/22 17:45 04/22/22 17:45 Radiology Impressions Chest X-Ray 04/22/22 16:27 IMPRESSION: 1. Right subclavian central line with distal tip overlying SVC. This is new when compared to 03/27/2021. No pneumothorax associated. 2. Cardiomegaly is present. 3. No consolidative pulmonary infiltrate noted. Abdomen/Pelvis CT 04/23/22 11:08 IMPRESSION: 1. Aortic endograft with biiliac extension. Excluded aneurysm sac measures 5.2 x 5.3 x 6.0cm. This is increased compared to 2019 measured approximately 4.5 x 4.6 x 5.5 cm 2. Diffuse body wall anasarca with mesenteric edema. 3. Bibasilar patchy infiltrate/atelectasis with trace pleural fluid. 4. Sigmoid diverticulosis. No evidence of acute diverticulitis. 5. Small amount of free fluid in the anterior pelvis. 6. Rendon catheter. 7. Small esophageal hiatal hernia. 8. Cholelithiasis. Laboratory Results WBC 12.1 10^3/uL (4.0-10.0) H 04/23/22 10:24 RBC 5.25 10^6/uL (4.1-5.3) 04/23/22 10:24 Hgb 14.7 g/dL (11.7-16.6) 04/23/22 10:24 Hct 44.7 % (42.0-52.0) 04/23/22 10:24 MCV 85.1 fl (80-94) 04/23/22 10:24 MCH 28.0 pg (28.0-34.0) 04/23/22 10:24 MCHC 32.9 g/dL (30.0-36.0) 04/23/22 10:24 RDW 17.2 % (12.1-15.1) H 04/23/22 10:24 Plt Count 63 10^3/cmm (130-400) L 04/23/22 10:24 MPV 12.2 fL (7.4-10.4) H 04/23/22 10:24 Neut % (Auto) Business Unit Director 04/23/22 10:24 Lymph % (Auto) Business Unit Director 04/23/22 10:24 Stephens % (Auto) Business Unit Director 04/23/22 10:24 Eos % (Auto) Business Unit Director 04/23/22 10:24 Baso % (Auto) Business Unit Director 04/23/22 10:24 Neut # (Auto) Business Unit Director 04/23/22 10:24 Lymph # (Auto) Business Unit Director 04/23/22 10:24 Stephens # (Auto) Business Unit Director 04/23/22 10:24 Eos # (Auto) Business Unit Director 04/23/22 10:24 Baso # (Auto) Business Unit Director 04/23/22 10:24 Nucleated RBC % (auto) Business Unit Director 04/23/22 10:24 Total Counted 100 (0-100) 04/23/22 10:24 Atypical Lymphs % 0.0 % (0-5) 04/23/22 10:24 Absolute Neutrophils 10.3 10^3/cmm (1.4-6.5) H 04/23/22 10:24 Segmented Neutrophils 85 % 04/23/22 10:24 Abs Segm Neuts (Man) 10.3 10/cmm (1.6-7.1) H 04/23/22 10:24 Band Neutrophils 0.0 % 04/23/22 10:24 Abs Band Neuts (Man) 0.0 10^3/cmm (0.0-1.2) 04/23/22 10:24 Absolute Lymphocytes 1.1 10^3/cmm (1.2-3.4) L 04/23/22 10:24 Lymphocytes (Manual) 9 % 04/23/22 10:24 Monocytes (Manual) 0.0 % 04/23/22 10:24 Absolute Monocytes 0.0 10^3/cmm (0.1-0.6) L 04/23/22 10:24 Eosinophils (Manual) 0 % 04/23/22 10:24 Absolute Eosinophils 0.0 10^3/cmm (0.0-0.7) 04/23/22 10:24 Basophils (Manual) 0.0 % 04/23/22 10:24 Absolute Basophils 0.0 10^3/cmm (0.0-0.2) 04/23/22 10:24 Metamyelocytes 3.0 % 04/23/22 10:24 Myelocytes 1.0 % 04/23/22 10:24 Promyelocytes 1.0 % 04/23/22 10:24 Nucleated RBCs 2.0 /100WBC (0-1) H 04/23/22 10:24 Nucleated RBCs # Business Unit Director 04/23/22 10:24 Blast Cells 1 % (0-0) H 04/23/22 10:24 Platelet Estimate Normal (Normal) 04/23/22 10:24 PT 77.10 SECONDS (12.1-14.9) H 04/23/22 10:24 INR 9.64 (0.8-1.2) H* 04/23/22 10:24 APTT 59.0 SECONDS (23.9-36.7) H 04/22/22 17:45 Specimen Type Arterial 04/22/22 16:55 Sample Site Radial, right 04/22/22 16:55 ABG pH 7.41 (7.35-7.45) 04/22/22 16:55 ABG pCO2 26.7 mmHg (35-45) L 04/22/22 16:55 ABG pO2 76.6 mmHg (80.0-100.0) L 04/22/22 16:55 ABG HCO3 16.8 mmol/L (22-26) L 04/22/22 16:55 ABG O2 Saturation 95.5 04/22/22 16:55 ABG Base Excess -5.9 mmol/L (-2.0-2.0) L 04/22/22 16:55 Jose Test Pos 04/22/22 16:55 A-a O2 Gradient 18.5 mmHg (5-10) H 04/22/22 16:55 Hematocrit 49.9 % (42-52) 04/22/22 16:55 Hgb O2 Saturation 92.4 % (95-100) L 04/22/22 16:55 Carboxyhemoglobin 2.8 %THgb (0.4-20.1) 04/22/22 16:55 Methemoglobin 0.5 % (0.4-1.5) 04/22/22 16:55 Total Hemoglobin 16.3 g/dL (14-18) 04/22/22 16:55 Sodium 124.0 mmol/L (131-143) L 04/22/22 16:55 Potassium 4.1 mmol/L (3.5-5.0) 04/22/22 16:55 Glucose 105.0 mg/dL (70-115) 04/22/22 16:55 Ionized Calcium 1.1 mmol/L (1.1-1.4) 04/22/22 16:55 O2 Delivery Device Nc 04/22/22 16:55 O2 Liters/Min 4.0 % 04/22/22 16:55 FiO2 36.0 % 04/22/22 16:55 Orthoptist ID Alewe 04/22/22 16:55 Sodium 124 mmol/L (136-145) L 04/23/22 10:24 Potassium 4.5 mmol/L (3.5-5.1) 04/23/22 10:24 Chloride 92 mmol/L (98-107) L 04/23/22 10:24 Carbon Dioxide 20 mmol/L (22-29) L 04/23/22 10:24 Anion Gap 16.5 (5-19) 04/23/22 10:24 BUN 47 mg/dL (8-23) H 04/23/22 10:24 Creatinine 3.3 mg/dL (0.7-1.2) H 04/23/22 10:24 GFR Calculation 18.9 mL/min (90-130) L 04/23/22 10:24 Glucose 115 mg/dL (65-115) 04/23/22 10:24 Calculated Osmolality 271 mOsm/kg (285-295) L 04/23/22 10:24 Lactic Acid 1.6 mmol/L (0.5-2.2) 04/22/22 17:45 Calcium 7.5 mg/dL (8.5-10.5) L 04/23/22 10:24 Magnesium 2.1 mg/dL (1.7-2.3) 04/23/22 10:24 Total Bilirubin 4.6 mg/dL (0.15-1.2) H 04/23/22 10:24 AST 1036 U/L (0-40) H 04/23/22 10:24 ALT 377 U/L (0-41) H 04/23/22 10:24 Alkaline Phosphatase 187 U/L (40-130) H 04/23/22 10:24 Ammonia 60 umol/L (16-60) 04/22/22 17:45 Creatine Kinase 185 U/L (39-308) 04/22/22 17:45 Troponin T Baseline 48 ng/L (0-15) H 04/22/22 17:45 Troponin T 120 Minute 47.92 ng/L (0-15) H 04/22/22 19:40 Delta Troponin T -0.08 ABS# (0-10) L 04/22/22 19:40 Troponin T Hi Sens 6Hr 46.23 ng/L (0-15) H 04/22/22 23:33 Troponin T Hi Sens 6Hr Delta -1.77 ng/L (0-12) L 04/22/22 23:33 NT-Pro-B Natriuret Pep 96750 pg/mL (0-125) H 04/22/22 17:45 Total Protein 5.3 g/dL (6.6-8.7) L 04/23/22 10:24 Albumin 2.5 g/dL (3.5-5.2) L 04/23/22 10:24 Globulin 2.8 g/dL (1.3-4.6) 04/23/22 10:24 Urine Color Brown (Yellow) 04/22/22 18:39 Urine Appearance Hazy (CLEAR) A 04/22/22 18:39 Urine pH 5 (5-7) 04/22/22 18:39 Ur Specific Altha 1.020 (1.005-1.030) 04/22/22 18:39 Urine Protein 2+ (Negative) H 04/22/22 18:39 Urine Glucose (UA) Norm (Normal) 04/22/22 18:39 Urine Ketones 1+ (Negative) H 04/22/22 18:39 Urine Blood 3+ (Negative) H 04/22/22 18:39 Urine Nitrate Negative (Negative) 04/22/22 18:39 Urine Bilirubin Neg (Negative) 04/22/22 18:39 Urine Urobilinogen Norm mg/dL (Negative) 04/22/22 18:39 Ur Leukocyte Esterase Negative (Negative) 04/22/22 18:39 Urine RBC 0-4 /hpf (0-2) H 04/22/22 18:39 Urine WBC 0-4 /hpf (0-5) H 04/22/22 18:39 Ur Squamous Epith Cells None /hpf (0-5) 04/22/22 18:39 Amorphous Sediment Not Reportable 04/22/22 18:39 Urine Bacteria 4+ /hpf (NONE) H 04/22/22 18:39 Digoxin 0.3 ng/mL (0.6-1.2) L 04/23/22 10:24 Hepatitis A IgM Ab Non-reactive (Nonreactive) 04/22/22 20:35 Hep Bs Antigen Non-reactive (Nonreactive) 04/22/22 20:35 Hep Bs Antibody 28.8 (11.5-1000) 04/22/22 20:35 Hep B Core Total Ab Non-reactive (Nonreactive) 04/22/22 20:35 Hepatitis C Antibody Non-reactive (Nonreactive) 04/22/22 20:35 SARS-CoV-2 Ag (Rapid) negative (Negative) 04/22/22 20:55 Critical Care Time Critical Care Time: Critical Care Time: Yes Total Critical Care Time: 45 Attestation: The high probability of a clinically significant, sudden or life threatening deterioration of the patient's cardiovascular system(s) required my full and direct attention, intervention and personal management. The critical care time is as shown. This time is in addition to time spent performing any reported procedures but includes the following: [x] Data and vital sign review and interpretation [x] Patient assessment, examination and intervention [x] Documentation [x] Medication orders and management Discharge Plan Discharge Patient Disposition: Xfer Short-Term Hosp Clinical Impression: Acute liver failure, Hypotension, CHF (congestive heart failure), BOOM (acute kidney injury), Coagulopathy, Thrombocytopenia, Digoxin toxicity Condition: Stable Coding Level of Care Code ED Chief Ophthalmic Technician for [facility] Fwd Exam Detailed
[2022-04-22 17:08] LABS: ABG PCO2 26.7 mmHg (35-45); ABG PH Result 7.41 (7.35-7.45); Alveolar-Arterial Oxygen Gradi 18.5 mmHg (5-10); Arterial Blood Gas Hematocrit 49.9 % (42-52); Base Excess ABG -5.9 mmol/L (-2.0-2.0); Blood Gas Allen Test Pos; Blood Gas Sample Site Radial, right; Blood Gas Sample Type Arterial; Carboxyhemoglobin 2.8 %THgb (0.4-20.1); HCO3 ABG 16.8 mmol/L (22-26); HGB O2 Sat 92.4 % (95-100); Ionized Calcium Level - ABG 1.1 mmol/L (1.1-1.4); Methemoglobin 0.5 % (0.4-1.5); Oxygen Device NC; Oxygen Saturation ABG 95.5; PO2 ABG 76.6 mmHg (80.0-100.0); Potassium Level - ABG 4.1 mmol/L (3.5-5.0); Total Hemoglobin 16.3 g/dL (14-18)
--- NOTE | 2022-04-22 17:52 | PC.NURSE ---
Nu Weaver (Daughter) [phone]
[2022-04-22 18:00] LABS: Basophils % 0.1 %; Eosinophils % 0.1 %; Hematocrit 48.8 % (42.0-52.0); Hemoglobin 15.8 g/dL (11.7-16.6); Lymphocytes % 12.1 %; Mean Corpuscular HGB Conc 32.4 g/dL (30.0-36.0); Mean Corpuscular Hemoglobin 27.6 pg (28.0-34.0); Mean Corpuscular Volume 85.3 fl (80-94); Mean Platelet Volume 11.3 fL (7.4-10.4); Monocytes # 1.3 10^3/uL (0.2-0.9); Monocytes % 15.9 %; Neutrophils # 5.95 10^3/uL (1.8-7.7); Neutrophils % 71.3 %; Nucleated Red Blood Cells % 0.4 %; Platelet Count 76 10^3/cmm (130-400); Red Blood Count 5.72 10^6/uL (4.1-5.3); White Blood Count 8.4 10^3/uL (4.0-10.0)
--- NOTE | 2022-04-22 18:01 | ECG_ITS ---
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 Measurements Intervals [place] Rate: 81 P: 0 [place]: 0 QRS: -79 QRSD: 120 T: 133 QT: 414 QTc: 482 Interpretive Statements ATRIAL FIBRILLATION POSSIBLE RIGHT VENTRICULAR CONDUCTION DELAY [RSR (QR) IN V1/V2] ANTERIOR MYOCARDIAL INFARCTION , PROBABLY OLD [40+ ms Q WAVE AND/OR ST/T ABNORMALITY IN V3/V4] INFERIOR MYOCARDIAL INFARCTION , PROBABLY OLD [40+ ms Q WAVE AND/OR ST/T ABNORMALITY IN II/aVF] Compared to ECG 03/20/2022 14:08:50 No significant changes Electronically Signed On 04-23-2022 0:05:26 AMBULATORY SERVICES REPRESENTATIVE by Tammi William M.D. [id number]
[2022-04-22 18:03] LABS: Slide Review Slide Review Perform
--- NOTE | 2022-04-22 18:16 | PC.NURSE ---
Pt reports increasing weakness and shortness of breath with exertion x3 weeks. Pt reports that he was seen in the ED and admitted approximately 3 weeks ago for a wound on his left lower leg. Pt reports being discharged after admission and feeling well. Pt reports that he began having increased weakness and shortness of breath with exertion x1week ago. Pt reports jaundice appeared 2 days ago and has progressively gotten worse. Pt had routine bloodwork performed at PCP office yesterday and was called today to go to the ED for evaluation/treatment of abnormal liver levels.
[2022-04-22 18:20] LABS: Ammonia 60 umol/L (16-60); Lactic Sepsis W/Reflex 1.6 mmol/L (0.5-2.2)
[2022-04-22 18:21] LABS: Troponin(5th) Baseline 48 ng/L (0-15)
[2022-04-22 18:44] LABS: INR 13.14 (0.8-1.2)
[2022-04-22 19:05] LABS: Alanine Aminotransferase 363 U/L (0-41); Albumin Level 2.9 g/dL (3.5-5.2); Alkaline Phosphatase 197 U/L (40-130); Blood Urea Nitrogen 40 mg/dL (8-23); Calcium 8.2 mg/dL (8.5-10.5); Carbon Dioxide 19 mmol/L (22-29); Creatine Phosphokinase 185 U/L (39-308); Glucose 104 mg/dL (65-115); Magnesium 2.1 mg/dL (1.7-2.3); NT Pro B Type Natriuretic Pept 18849 pg/mL (0-125); Total Bilirubin 5.1 mg/dL (0.15-1.2); Total Protein 5.9 g/dL (6.6-8.7)
[2022-04-22 19:09] LABS: Blood Urine 3+ (Negative); Glucose Urine UA Norm (Normal); Ketones Urine 1+ (Negative); Protein Urine 2+ (Negative); Urine Appearance Hazy (CLEAR); Urine Color Brown (Yellow); pH Urine 5 (5-7)
[2022-04-22 19:10] LABS: Add Urine Culture? Yes; Add Urine Microscopic? YES; Bacteria Urine 4+ /hpf; Bilirubin Urine Neg (Negative); Leukocyte Esterase Urine Negative (Negative); Nitrate Urine Negative (Negative); RBC Urine 0-4 /hpf (0-2); Urobilinogen Urine Norm (Negative); WBC Urine 0-4 /hpf (0-5)
[2022-04-22 20:00] LABS: Anion Gap 20.3 (5-19); Chloride 94 mmol/L (98-107); Glomerular Filtration Rate 21.9 mL/min (90-130); Osmolality Calculated 278 mOsm/kg (285-295); Potassium 4.3 mmol/L (3.5-5.1); Sodium 129 mmol/L (136-145)
[2022-04-22 20:07] LABS: Troponin 5 2HR 47.92 ng/L (0-15)
[2022-04-22 20:08] LABS: Troponin 5 2HR Delta -0.08 ABS# (0-10)
[2022-04-22 20:14] LABS: Aspartate Amino Transferase 1010 U/L (0-40)
[2022-04-22] MEDS: piperacillin-tazobactam 3.375 GM in sodium chloride 0.9% (plus) 50 ML IV (21:14)
[2022-04-22 21:15] LABS: SARS Covid-2 Antigen negative (Negative)
[2022-04-22 21:46] LABS: Digoxin 2.2 ng/mL (0.6-1.2)
--- NOTE | 2022-04-22 22:28 | ECG_ITS ---
[facility] Test Date: 2022-04-23 Pat Name: Cheko Weaver Department: Room: Gender: Male Residential Support Specialist: : 1955 Requested By: Ji Olivier Order Number: [id number] Keny MD: Tammi William M.D. Measurements Intervals [place] Rate: 81 P: 0 [place]: 0 QRS: -76 QRSD: 119 T: 113 QT: 404 QTc: 470 Interpretive Statements ATRIAL FIBRILLATION WITH ABERRANT CONDUCTION OR VENTRICULAR PREMATURE COMPLEXES LOW QRS VOLTAGE [QRS DEFLECTION < 0.5/1.0 mV IN LIMB/CHEST LEADS] ANTERIOR MYOCARDIAL INFARCTION , PROBABLY OLD [40+ ms Q WAVE AND/OR ST/T ABNORMALITY IN V3/V4] Compared to ECG 04/22/2022 18:01:19 Ventricular premature complex(es) now present Aberrant conduction of supraventricular beat(s) now present Low QRS voltage now present Myocardial infarct finding still present Electronically Signed On 04-23-2022 18:22:28 ASSISTANT STORE DIRECTOR by Tammi William M.D. [id number]
[2022-04-22] MEDS: ondansetron 2 mg/ML SDV 2 mL 4 MG IVP (23:46)
[2022-04-22] MEDS: morphine 4 mg/mL SDV 1 mL IVP (23:46)
[2022-04-23] VITALS (107 sets, daily range): BP systolic 56–110; BP diastolic 34–84; PULSE 77–110; RESP 10–33; O2SAT 76–100
[2022-04-23 00:04] LABS: Hepatitis A Antibody IgM Non-Reactive (Nonreactive); Hepatitis B Core AB, Total Non-Reactive (Nonreactive); Hepatitis B Surface AB 28.8 (11.5-1000); Hepatitis B Surface Antigen Non-Reactive (Nonreactive); Hepatitis C Virus Antibody Non-Reactive (Nonreactive)
[2022-04-23 00:10] LABS: Troponin 5 6HR 46.23 ng/L (0-15)
[2022-04-23 00:11] LABS: Troponin 5 6HR Delta -1.77 ng/L (0-12)
[2022-04-23] MEDS: DOBUTamine drip 500 MG/250 ML PREMIX 18.37 MG IV (06:51)
--- NOTE | 2022-04-23 07:15 | PC.NURSE ---
WHILE AT BEDSIDE PT CO PAIN INFORMED DR. CABAN OF PT PAIN VO WITH READBACK FOR 25MCG IVP OF FENTYNL.
[2022-04-23] MEDS: fentaNYL 50 mcg/mL INJ 2mL 25 MCG IVP (07:21)
--- NOTE | 2022-04-23 07:25 | PC.NURSE ---
NOTIFIED PHARMACY OF NEED OF LEVOPHED. PHARMACY STATED THAT THEY WOULD HAVE A BAG HERE DANTE.
[2022-04-23] MEDS: norepinephrine 8 MG in dextrose 5 % 500 ML 53.34 MG IV (07:36)
--- NOTE | 2022-04-23 08:22 | PC.NURSE ---
WHILE AT DOORWAY PT IS RESTING QUIETLY IN BED SUPINE WITH EYES CLOSED.
--- NOTE | 2022-04-23 09:31 | PC.NURSE ---
WHILE AT BEDSIDE PT WAS ASSISTED TO SITTING POSITION AFTER BEING INFORMED THAT HE SHOULD REMAIN IN BED DT INCREASED RISK FOR FALLS AND HIGH INR. PT FAMILY UPDATED ON CARE.
--- NOTE | 2022-04-23 10:13 | P.CONIM_ITS ---
Providers/Reason For Consult Consulting Physician/Specialty*: Trenton Patel MD, hospitalist Reason for Consult*: Multiorgan failure Requesting Physician: Dr. Looney History of Present Illness History of Present Illness Cheko Weaver is a 66 year old male who presents to the emergency department with shortness of breath, increased swelling, fatigue, and jaundice. This has been gradually worsening over the last 2 weeks or so. Blood pressure was noted to be low in an outlying clinic as well. He reports some shortness of breath currently. He has felt hot at times but no fevers have been recorded. Abdomen has become distended. And he has not been able to eat and drink significant amounts. In the emergency department he was found to be significantly hypotensive. He was given norepinephrine. He received some antibiotics in the form of Zosyn initially. The emergency department physician was given a dose of octreotide. Review of Systems Const: Reports: chills, fatigue and malaise; Denies: fever(s) Eyes: Denies: change in vision ENMT: Denies: throat pain Card: Reports: swelling of feet/ankles; Denies: chest pain Resp: Reports: dyspnea and wheezing; Denies: productive cough or non-productive cough GI: Reports: abdominal pain and nausea; Denies: hematochezia or melena : Denies: flank pain Musc: Denies: neck pain Skin/Breast: Denies: rash Neuro: Denies: headache(s) Psych: Denies: anxiety or depression Endo: Denies: polyuria Cuco/Lymph: Reports: easy bruising All/Imm: Denies: urticaria Medications/Allergies Home Medications Medication Instructions Recorded Confirmed Last Taken Type allopurinol 100 mg tablet 100 mg PO QAM 05/24/19 04/22/22 04/22/22 History ferrous sulfate 325 mg (65 mg 325 mg PO EVERY OTHER DAY 05/24/19 04/22/22 04/22/22 History iron) tablet finasteride 5 mg tablet 5 mg PO DAILY 05/24/19 04/22/22 04/21/22 History rosuvastatin 40 mg tablet 40 mg PO DAILY 05/24/19 04/22/22 04/21/22 History tiotropium bromide 18 mcg capsule 1 cap inhalation DAILY 05/24/19 04/22/22 04/22/22 History with inhalation device (Spiriva with HandiHaler) tamsulosin 0.4 mg capsule 0.4 mg PO DAILY 11/16/20 04/22/22 04/21/22 History budesonide-formoterol HFA 160 2 puff inhalation BID 03/28/21 04/22/22 04/22/22 History mcg-4.5 mcg/actuation aerosol inhaler (Symbicort) albuterol sulfate 90 mcg/actuation 1 inh inhalation Q6H PRN shortness 03/30/21 04/22/22 09/08/21 Rx breath activated powder inhaler of breath or wheezing #1 ea apixaban 5 mg tablet (Eliquis) 5 mg PO BID #180 tabs 09/26/21 04/22/22 04/22/22 Rx sildenafil (pulm.hypertension) 20 20 mg PO DAILY Pulmonary 01/14/22 04/22/22 04/22/22 Rx mg tablet hypertension #30 tabs aspirin 81 mg tablet,delayed 81 mg PO DAILY 03/19/22 04/22/22 04/22/22 History release metoprolol succinate 25 mg 25 mg PO DAILY 03/19/22 04/22/22 04/22/22 History tablet,extended release 24 hr bumetanide 1 mg tablet 1 mg PO BID #120 tabs 03/22/22 04/22/22 04/22/22 Rx digoxin 125 mcg (0.125 mg) tablet 125 mcg PO DAILY #90 tabs 03/22/22 04/22/22 04/22/22 Rx spironolactone 25 mg tablet 12.5 mg PO DAILY 04/22/22 04/22/22 04/21/22 History Allergies Allergy/AdvReac Type Severity Reaction Status Date / Time No Known Allergies Allergy Verified 03/19/22 14:05 Current Medications Generic Name Dose Route Start Last Admin Trade Name Freq PRN Reason Stop Dose Admin Norepinephrine Bitartrate 4 mg 254 mls @ 0 mls/hr 04/22/22 18:45 04/23/22 05:37 / Dextrose IV 14 mcg/min .Q0M JAMILA 53.34 mls/hr Titration Protocol Per Protocol Dobutamine HCl/Dextrose 500 mg in 250 mls @ 0 mls/hr 04/23/22 06:45 04/23/22 06:51 Dobutamine Drip IV 5 mcg/kg/min .Q0M JAMILA 18.37 mls/hr Administration Protocol Per Protocol Norepinephrine Bitartrate 8 mg 508 mls @ 0 mls/hr 04/23/22 07:15 04/23/22 07:36 / Dextrose IV 14 mcg/min .Q0M JAMILA 53.34 mls/hr Administration Protocol Per Protocol PFSH Acute PFSH: Medical History (Updated 04/23/22 @ 12:22 by Trenton Patel MD) AAA (abdominal aortic aneurysm) 5.7 cm infrarenal abdominal aortic aneurysm with aorto bi-iliac stent Abdominal aortic aneurysm Acute exacerbation of CHF (congestive heart failure) Atrial fibrillation Sotalol discontinued. Placed on amiodarone and metoprolol with adequate rate control Atrial fibrillation Cellulitis CHF (congestive heart failure) Cirrhosis Colon polyps COPD (chronic obstructive pulmonary disease) Stable Hyperlipidemia Hypertension Nonischemic cardiomyopathy 03/28/2021: LVEF 20 to 25%, [employer] ICD implanted 12/20/2018 Portal hypertension Sepsis Thrombocytopenia Surgical History H/O hernia repair L inguinal hernia repair History of implantable cardioverter-defibrillator (ICD) placement 12/20/18 History of orthopedic surgery Repair heel fracture Status post colonoscopy (10/18/20) Status post endovascular aneurysm repair (EVAR) Family History Mother Dementia Father CAD (coronary artery disease) Social History Smoking and tobacco status: current every day smoker cigarettes Packs smoked per day: 0.5 Years cigarettes smoked: 46 Alcohol intake: current Alcohol intake frequency: other Vitals/I&O/Wt Last Vital Signs Temp 97.3 F L 04/22/22 16:05 Pulse 94 04/23/22 10:00 Resp 23 H 04/23/22 10:00 BP 103/67 04/23/22 10:00 Pulse Ox 95 04/23/22 10:00 O2 Del Method 04/23/22 06:54 O2 Flow Rate 4 04/23/22 06:54 04/22/22 04/23/22 04/23/22 22:59 06:59 14:59 Intake Total 92.672 / 92.672 369.062 / 461.734 Balance 92.672 / 92.672 369.062 / 461.734 Weight last 48 hrs Weight 122.47 kg Physical Exam Narrative: General exam demonstrates a conversive white male, with no evidence of confusion, who reports shortness of breath. He has at least mild to moderate retractions. HEENT: Atraumatic and normocephalic. Pupils equally round. Oropharynx clear. Neck is supple no lymphadenopathy or thyromegaly Cardiovascular irregular, irregular rhythm with a 2/6 systolic murmur Lungs few bibasilar wheezes Abdomen is distended. No significant tenderness. Bowel sounds are present. exam is deferred Extremities show 3+ edema bilaterally Skin some bruising scattered on chest and abdomen Neuro no obvious focal deficits. Urinary Catheter Management: Rendon: Cath Placed During This Visit: yes Reason for Continuing Indwelling Catheter: Accurate Measurement of Urinary Output in Critically Ill Patients Urinary Catheter Date of Insertion: 04/22/22 Urinary Catheter Time of Insertion: 06:30 Data 04/22/22 17:45 04/22/22 17:45 Other Labs: EKG demonstrates atrial fibrillation, 1 PVC, left axis deviation. Intraventric ular conduction delay is noted. Chest x-ray demonstrates right subclavian central line, cardiomegaly and no infiltrate CT abdomen and pelvis with contrast on March 19 demonstrated cirrhosis, small volume ascites, mild anasarca, 5.7 cm infrarenal abdominal aortic aneurysm, cholelithiasis Blood cultures were drawn Initial INR 13 with repeat today of 9.64 LFTs demonstrate bilirubin of 4.6, AST of 1036, ALT of 377, alk phos of 187, magnesium 2.1, calcium 7.5, albumin 2.5 Repeat digoxin level 0.3(initially elevated at 2.2) Hepatitis panel negative Micro: Microbiology 04/22/22 18:41 Blood Culture - Preliminary Blood SPECIMEN COLLECTED 04/22/22 17:50 Blood Culture - Preliminary Blood SPECIMEN COLLECTED A&P Assessment and plan (1) Acute liver failure: Concern of cirrhosis on last CT scan 1 month ago No repeat imaging has been done with this visit. Could consider but from my understanding he is going to be transferred imminently. Etiology of liver failure is not known. Could certainly be decompensation of existing problem such as infection/sepsis. Cannot rule out significant liver congestion from heart failure completely. At this point will check glucose every 6 hours Initiate Rocephin for possibility of infection. If INR decreases could consider paracentesis to rule out SBP Blood cultures have already been drawn which is appropriate Albumin every 6 hours Close follow-up of electrolytes, liver test No evidence of GI bleeding currently. He has received 1 dose of octreotide by the emergency department. If significant bleeding could consider continuation of this. (2) BOOM (acute kidney injury): Currently has not yet had any imaging. Will need renal ultrasound or CT abdomen and pelvis without contrast to completely rule out any obstruction although this is not likely to be present. CK has been obtained and not elevated Urinalysis has been obtained Differential includes cardiorenal or hepatorenal syndrome (3) CHF (congestive heart failure): Patient with significant CHF, with history of EF around 25% Dobutamine has been initiated by the emergency department, to increase perfusion Norepinephrine was also initiated secondary to hypotension Diuresis will eventually be needed, but I am reluctant to initiate currently considering his multiorgan dysfunction and severe hypotension. (4) Hypotension: Agree with norepinephrine started in the emergency department Large amounts of fluid are contraindicated secondary to his anasarca and resp iratory status Qualifiers: Hypotension type: idiopathic hypotension Qualified Code(s): I95.0 - Idiopathic hypotension (5) Thrombocytopenia: May be secondary liver disease Close monitoring (6) Coagulopathy: Appears to be secondary to liver disease Initiate vitamin K 10 mg IV now. Close follow-up of INR Hold Eliquis Plan Elevated digoxin level. Now not elevated on repeat exam History of COPD. Nebs as needed Discussed in detail with patient's family that he is high risk for morbidity and mortality secondary to his multiorgan system failure and that he would be best served in a tertiary care center. 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
[2022-04-23] MEDS: cefTRIAXone 1,000 MG in sodium chloride 0.9% (plus) 50 ML 100 MG IV (10:25)
[2022-04-23] MEDS: phytonadione (ADULT) 10 MG in sodium chloride 0.9% 50 ML 153 MG IV (10:27)
[2022-04-23 10:37] LABS: Hematocrit 44.7 % (42.0-52.0); Hemoglobin 14.7 g/dL (11.7-16.6); Mean Corpuscular HGB Conc 32.9 g/dL (30.0-36.0); Mean Corpuscular Volume 85.1 fl (80-94); Mean Platelet Volume 12.2 fL (7.4-10.4); Platelet Count 63 10^3/cmm (130-400); Red Blood Count 5.25 10^6/uL (4.1-5.3); Red Cell Distribution Width 17.2 % (12.1-15.1); White Blood Count 12.1 10^3/uL (4.0-10.0)
[2022-04-23 10:43] LABS: Slide Review Slide Review Perform
[2022-04-23 10:51] LABS: Alanine Aminotransferase 377 U/L (0-41); Albumin Level 2.5 g/dL (3.5-5.2); Alkaline Phosphatase 187 U/L (40-130); Anion Gap 16.5 (5-19); Blood Urea Nitrogen 47 mg/dL (8-23); Calcium 7.5 mg/dL (8.5-10.5); Carbon Dioxide 20 mmol/L (22-29); Chloride 92 mmol/L (98-107); Globulin 2.8 g/dL (1.3-4.6); Glomerular Filtration Rate 18.9 mL/min (90-130); Glucose 115 mg/dL (65-115); Magnesium 2.1 mg/dL (1.7-2.3); Osmolality Calculated 271 mOsm/kg (285-295); Potassium 4.5 mmol/L (3.5-5.1); Sodium 124 mmol/L (136-145); Total Bilirubin 4.6 mg/dL (0.15-1.2); Total Protein 5.3 g/dL (6.6-8.7)
--- NOTE | 2022-04-23 11:08 | CT_ITS ---
WS: [id number] CT ABDOMEN PELVIS TECHNIQUE: Noncontrast CT of the abdomen and pelvis with coronal and sagittal reformatted images. CLINICAL INFORMATION: Abdominal pain/bloating COMPARISON: None. DLP: 1147.[address] scans at [facility] use at least one of these dose optimization techniques: automated e xposure control; mA and/or kV adjustment per patient size (includes targeted exams where dose is matc hed to clinical indication); or iterative reconstruction. FINDINGS: Aortic endograft with biiliac extension. Excluded aneurysm sac measures 5.2 x 5.3 x 6.0 CM. Periphera l calcification. No evidence of rupture or retroperitoneal hematoma. Cardiomegaly. Patchy infiltrates in the lung bases. Bibasilar atelectasis. Trace pleural fluid. Chron ic granulomas or splenic granulomas. Small esophageal hiatal hernia. Cholelithiasis. Fatty atrophy of the pancreas. No hydronephrosis in either kidney. Rendon catheter. Bladder is decompressed. Diffuse b naveen wall anasarca. Diffuse scattered mesenteric edema. No free fluid in the pelvis. Fat-containing um bilical hernia. Fatty atrophy of the pancreas. CT/CT abdomen pelvis wo con [id number] IMPRESSION: 1. Aortic endograft with biiliac extension. Excluded aneurysm sac measures 5.2 x 5.3 x 6.0cm. This is increased compared to 2020 measured approximately 4.5 x 4.6 x 5.5 cm 2. Diffuse body wall anasarca with mesenteric edema. 3. Bibasilar patchy infiltrate/atelectasis with trace pleural fluid. 4. Sigmoid diverticulosis. No evidence of acute diverticulitis. 5. Small amount of free fluid in the anterior pelvis. 6. Rendon catheter. 7. Small esophageal hiatal hernia. 8. Cholelithiasis.
[2022-04-23 11:10] LABS: INR 9.64 (0.8-1.2)
[2022-04-23 11:16] LABS: Aspartate Amino Transferase 1036 U/L (0-40)
[2022-04-23 11:46] LABS: Digoxin 0.3 ng/mL (0.6-1.2)
[2022-04-23] MEDS: octreotide 100 mcg/mL SDV 50 MCG IVP (12:32)
[2022-04-23 12:38] LABS: Absolute Segmented Neutrophil 10.3 10/cmm (1.6-7.1); Eosinophils 0 %; Lymphocytes 9 %; Lymphocytes Absolute 1.1 10^3/cmm (1.2-3.4); Segmented Neutrophils 85 %; Total Cells Counted 100 (0-100)
[2022-04-23 12:39] LABS: Absolute Neutrophil 10.3 10^3/cmm (1.4-6.5); Blastocytes 1 % (0-0); Platelet Estimate Normal (Normal)
[2022-04-24 14:33] LABS: Leukemia Profile (BBPL) See Report; Lymphoma Profile (BBPL) See Report
== END 2022-04-23 13:50 | disposition short-term general hospital (02) ==
PROVIDERS: Emergency Medicine; Internal Medicine; Emergency Provider Family Medicine
DX: K72.00 Acute and subacute hepatic failure without coma (principal); I95.9 Hypotension, unspecified; I11.0 Hypertensive heart disease with heart failure; I50.9 Heart failure, unspecified; N17.9 Acute kidney failure, unspecified; D68.9 Coagulation defect, unspecified; D69.6 Thrombocytopenia, unspecified; T46.0X5A Adverse effect of cardiac-stimulant glycosides and drugs of similar action, initial encounter; Z20.822 Contact with and (suspected) exposure to COVID-19; F17.210 Nicotine dependence, cigarettes, uncomplicated; J44.9 Chronic obstructive pulmonary disease, unspecified; E78.5 Hyperlipidemia, unspecified
CPT/HCPCS: 36415; 36556; 36600; 51702; 71045; 74176; 80051; 80053; 80162; 80503; 81001; 82140; 82330; 82550; 82805; 83605; 83735; 83880; 84484; 85007; 85025; 85610; 85730; 86705; 86706; 86709; 86803; 87040; 87086; 87340; 87426; 88184; 88185; 93005; 96365; 96366; 96367; 96375; 99291; J0696; J1250; J2270; J2354; J2405; J2543; J3010; J3430; J7060; P9046